=== PATIENT | male | born 1955 | race Caucasian/White ===

== ENCOUNTER 2018-09-10 14:45 | Observation (INO) ==
--- NOTE | 2018-09-10 15:00 | Emergency Department Note ---
Disposition Clinical Impression: Syncope, Chest pain, Weakness, Bigeminy Disposition: Admitted As Inpatient Condition: Good General Adult HPI - General Chief complaint: ED Chest Pain Stated complaint: Chest pain Time Seen by Provider: 09/10/18 14:57 - Related Data Home Medications Medication Instructions Recorded Confirmed Atorvastatin Calcium [Lipitor] 20 mg PO DAILY 09/10/18 09/10/18 Enalapril Maleate [Vasotec] 2.5 mg PO DAILY 09/10/18 09/10/18 Ferrous Sulfate [Iron] 325 mg PO DAILY 09/10/18 09/10/18 Levothyroxine [Synthroid] 25 mcg PO DAILY 09/10/18 09/10/18 Metoprolol Succinate [Toprol Xl] 100 mg PO DAILY 09/10/18 09/10/18 Multivitamin [One Daily Essential] 1 tab PO DAILY 09/10/18 09/10/18 Nitroglycerin [Nitrostat] 0.4 mg SL AD 09/10/18 09/10/18 Pantoprazole Sodium [Protonix] 40 mg PO DAILY 09/10/18 09/10/18 Potassium Chloride [Klor-Con 8 meq PO DAILY 09/10/18 09/10/18 Sprinkle] RX: Albuterol Sulfate [Albuterol 2 puff IH Q4H PRN 09/10/18 09/10/18 Inhaler] RX: Cyclobenzaprine HCl 10 mg PO TID 09/10/18 09/10/18 RX: Fluticasone/Salmeterol [Advair 1 puff IH BID 09/10/18 09/10/18 250-50 Diskus] RX: Furosemide [Lasix] 20 mg PO DAILY 09/10/18 09/10/18 RX: Morphine Sulfate SR (12 HR) 15 mg PO BID PRN 09/10/18 09/10/18 [MS Contin] RX: Paroxetine [Paxil] 20 mg PO DAILY 09/10/18 09/10/18 Tamsulosin [Flomax] 0.4 mg PO DAILY 09/10/18 09/10/18 Tramadol HCl [Ultram] 50 mg PO BID 09/10/18 09/10/18 clonazePAM [Clonazepam] 0.5 mg PO BID 09/10/18 09/10/18 Allergies Allergy/AdvReac Type Severity Reaction Status Date / Time rabbit dander Allergy Difficulty Verified 09/10/18 15:01 Breathing shellfish derived Allergy Swelling Verified 09/10/18 15:01 of Lip/Tongue/Throat Course Vital Signs Temperature 98.4 F 09/10/18 15:01 Pulse Rate 107 09/10/18 15:01 Respiratory Rate 20 09/10/18 15:01 Blood Pressure 126/83 09/10/18 15:01 O2 Sat by Pulse Oximetry 92 09/10/18 15:01 Temperature 98.4 F 09/10/18 15:01 Pulse Rate 79 09/10/18 19:31 Respiratory Rate 18 09/10/18 19:31 Blood Pressure 115/84 09/10/18 19:31 O2 Sat by Pulse Oximetry 96 09/10/18 19:31 Oxygen Delivery Oxygen Delivery Nasal Cannula Medical Decision Making - Lab Data Result diagrams: 09/10/18 15:13 09/10/18 15:13 Lab Results 09/10/18 09/10/18 09/10/18 Range/Units 15:13 15:13 15:13 WBC 11.0 (4.3-11.1) K/mcL RBC 5.25 (4.19-5.50) M/mcL Hgb 15.3 (12.9-16.9) g/dL Hct 47.4 (37.5-50.1) % MCV 90.3 (83.0-100.0) fL MCH 29.1 (28.0-33.3) pg MCHC 32.3 (31.6-35.5) g/dL RDW 12.4 (11.5-14.5) % Plt Count 328 (140-400) K/mcL MPV 9.3 L (9.4-12.4) fL Immature Gran % 1.4 (0-4) % Seg Neutrophils % 59.1 % Lymphocytes % 10.5 % Monocytes % 8.0 % Eosinophils % 20.5 % Basophils % 0.5 % Neutrophils # 6.5 (1.6-8.9) K/mcL Lymphocytes # 1.2 (0.6-4.6) K/mcL Monocytes # 0.9 (0.0-1.3) K/mcL Eosinophils # 2.3 H (0.0-0.6) K/mcL Basophils # 0.1 (0.0-0.2) K/mcL Platelet Estimate Normal (Normal) PT 12.7 H (9.4-12.1) Seconds INR 1.1 APTT 37.8 H (26.0-36.0) Seconds Sodium 142 (136-145) mEq/L Potassium 4.1 (3.5-5.1) mEq/L Chloride 103 (98-107) mEq/L Carbon Dioxide 31 H (23-29) mEq/L BUN 9 (8-23) mg/dL Creatinine 1.03 (0.70-1.30) mg/dL Est GFR ( Amer) > 60 (> 60) Est GFR (Non-Af Amer) > 60 (> 60) BUN/Creatinine Ratio 9 (6-26) Glucose 137 H (70-105) mg/dL Calculated Osmolality 295 (280-300) Calcium 8.7 (8.6-10.3) mg/dL Troponin I < 0.03 (< 0.04) ng/mL Attestation Statement - Attestation Attestation: I examined this patient and my medical decision-making was reviewed with the Resident Physician. I agree with the documented findings, disposition and treatment plan as described except to the extent set forth below. [id number] time provided Patient evaluated upon his arrival to the medical treatment room. He does not appear in any acute distress. ECG reveals bigeminy pattern.
[2018-09-10] MEDS ORDERED: Ipratropium/Albuterol Neb 3 ML IH ONE (15:22)
[2018-09-10 15:37] LABS: Basophils # 0.1 K/mcL (0.0-0.2); Basophils % 0.5 %; Eosinophils # 2.3 K/mcL (0.0-0.6); Eosinophils % 20.5 %; Hematocrit 47.4 % (37.5-50.1); Hemoglobin 15.3 g/dL (12.9-16.9); Immature Granulocytes % 1.4 % (0-4); Lymphocytes # 1.2 K/mcL (0.6-4.6); Lymphocytes % 10.5 %; Mean Corpuscular HGB Conc 32.3 g/dL (31.6-35.5); Mean Corpuscular Hemoglobin 29.1 pg (28.0-33.3); Mean Corpuscular Volume 90.3 fL (83.0-100.0); Mean Platelet Volume 9.3 fL (9.4-12.4); Monocytes # 0.9 K/mcL (0.0-1.3); Neutrophils # 6.5 K/mcL (1.6-8.9); Platelet Count 328 K/mcL (140-400); Red Blood Count 5.25 M/mcL (4.19-5.50); Red Cell Distribution Width 12.4 % (11.5-14.5); Segmented Neutrophils % 59.1 %
[2018-09-10] MEDS ORDERED: Isovue-370 500 ML INFUS..BTL IV ONE (15:38)
[2018-09-10 15:44] LABS: INR 1.1; Prothrombin Time 12.7 Seconds (9.4-12.1)
[2018-09-10 15:47] LABS: Activated Partial Thrombo Time 37.8 Seconds (26.0-36.0)
[2018-09-10 15:59] LABS: BUN/Creatinine Ratio 9 (6-26); Blood Urea Nitrogen 9 mg/dL (8-23); Calcium 8.7 mg/dL (8.6-10.3); Carbon Dioxide 31 mEq/L (23-29); Chloride 103 mEq/L (98-107); Glucose 137 mg/dL (70-105); Osmolality,Calculated 295 (280-300); Potassium 4.1 mEq/L (3.5-5.1); Sodium 142 mEq/L (136-145); eGFR For Non-African Americans > 60 (> 60)
[2018-09-10 16:00] LABS: Troponin I < 0.03 ng/mL (< 0.04)
--- NOTE | 2018-09-10 16:05 | Emergency Department Note ---
Disposition Clinical Impression: Weakness, Bigeminy Syncope Qualifiers: Syncope type: unspecified Qualified Code(s): R55 - Syncope and collapse Chest pain Qualifiers: Chest pain type: unspecified Qualified Code(s): R07.9 - Chest pain, unspecified Disposition: Admitted As Inpatient Condition: Good Referrals: NONE,PCP [Primary Care Provider] - Forms: ED Satisfaction Letter Time of Disposition: 18:20 Chest Pain HPI - General Chief Complaint: ED Chest Pain Stated Complaint: Chest pain Time Seen by Provider: 09/10/18 14:57 Source: patient, family Limitations: no limitations Vital Signs Reviewed: Yes Nursing Notes Reviewed: Yes - History of Present Illness HPI Narrative: 62-year-old male history of CAD, hypertension, hyperlipidemia COPD presents to the emergency department with chest pain. He has been having intermittent midsternal chest pain over the past week. Initially started 8 days ago while from [place] in [place] to [place]. On his way he stopped at [place] where he developed chest pain with pressure, difficulty breathing and lightheadedness. He was advised to stay in that town and rent [employer] [employer]. His daughter from [place] then drove down to pick him up. During those several days in the motel he reports his intermittent episodes of the chest pain and lightheadedness and almost passing out. 7 days ago he spoke to his family physician who advised him to stop taking the Toprol suspecting it could be due to his blood pressure. Chest pain does not appear to be exertional. He does noticed that when he gets up he feels dizzy and feeling of passing out and does not improve with time. They finally got into [place] yesterday. Yesterday he had an episode after standing from sitting position where he fell backwards striking his head stood back up and fell forward striking his face. He has an abrasion to his nose. This has never happened before. Patient denies history of blood clots, active cancer, hormone replacement. He has traveled by car from [place] to [place] to bury father in law. No history of any irregular heart rhythm. He has taken a baby aspirin today. Pt complaint: chest pain Severity scale (1-10): 7 - Related Data Home Medications Medication Instructions Recorded Confirmed Albuterol Sulfate [Albuterol 2 puff IH Q4H PRN 09/10/18 09/10/18 Inhaler] Atorvastatin Calcium [Lipitor] 20 mg PO DAILY 09/10/18 09/10/18 Cyclobenzaprine HCl 10 mg PO TID 09/10/18 09/10/18 Enalapril Maleate [Vasotec] 2.5 mg PO DAILY 09/10/18 09/10/18 Ferrous Sulfate [Iron] 325 mg PO DAILY 09/10/18 09/10/18 Fluticasone/Salmeterol [Advair 1 puff IH BID 09/10/18 09/10/18 250-50 Diskus] Furosemide [Lasix] 20 mg PO DAILY 09/10/18 09/10/18 Levothyroxine [Synthroid] 25 mcg PO DAILY 09/10/18 09/10/18 Metoprolol Succinate [Toprol Xl] 100 mg PO DAILY 09/10/18 09/10/18 Morphine Sulfate SR (12 HR) [MS 15 mg PO BID PRN 09/10/18 09/10/18 Contin] Multivitamin [One Daily Essential] 1 tab PO DAILY 09/10/18 09/10/18 Nitroglycerin [Nitrostat] 0.4 mg SL AD 09/10/18 09/10/18 Pantoprazole Sodium [Protonix] 40 mg PO DAILY 09/10/18 09/10/18 Paroxetine [Paxil] 20 mg PO DAILY 09/10/18 09/10/18 Potassium Chloride [Klor-Con 8 meq PO DAILY 09/10/18 09/10/18 Sprinkle] Tamsulosin [Flomax] 0.4 mg PO DAILY 09/10/18 09/10/18 Tramadol HCl [Ultram] 50 mg PO BID 09/10/18 09/10/18 clonazePAM [Clonazepam] 0.5 mg PO BID 09/10/18 09/10/18 Allergies Allergy/AdvReac Type Severity Reaction Status Date / Time rabbit dander Allergy Difficulty Verified 09/10/18 15:01 Breathing shellfish derived Allergy Swelling Verified 09/10/18 15:01 of Lip/Tongue/Throat All systems ED: reviewed and negative except as stated. Review of Systems: As Per HPI Constitutional: Denies: fever, chills, weakness ENT ED: Denies: epistaxis, congestion Cardiovascular: Reports: chest pain, syncope Respiratory: Reports: dyspnea. Denies: cough Gastrointestinal: Reports: constipation. Denies: abdominal pain, nausea, vomiting, hematemesis, melena, hematochezia Genitourinary: Denies: dysuria, hematuria Musculoskeletal: Reports: neck pain. Denies: back pain Integumentary: Reports: abrasion Neurological: Reports: headache. Denies: weakness, numbness, paresthesias, confusion Chest Pain PMH - Past Medical History Medical history: Reports: COPD, hyperlipidemia, hypertension, myocardial infarction Psychiatric history: Reports: no psych history - Social History Smoking Status: Never smoker Alcohol use: Reports: none Drug use: Reports: none Physical Exam - General Limitations: no limitations General appearance: alert, in no apparent distress - Head Head exam: atraumatic, normocephalic, normal inspection - Eye Eye exam: Present: normal appearance, PERRL, EOMI. Absent: nystagmus - ENT ENT exam: normal exam, normal oropharynx, mucous membranes moist, TM's normal bilaterally - Expanded ENT Exam External ear exam: Present: normal external inspection Nose exam: abrasion (Nasal bridge). negative: nasal deviation, septal hematoma Mouth exam: Present: normal external inspection, tongue normal Teeth exam: Present: normal inspection Throat exam: Present: normal inspection - Neck Neck exam: Present: normal inspection, full ROM, trachea midline. Absent: tenderness - Chest Chest inspection: Present: normal inspection, symmetric chest wall rise - Respiratory Respiratory exam: Present: normal lung sounds bilaterally. Absent: respiratory distress, wheezes - Cardiovascular Cardiovascular exam: Present: normal rhythm, tachycardia, normal heart sounds - Expanded Cardiovascular Exam Peripheral pulses: 2+: radial (R), radial (L) - Abdominal Exam Abdominal exam: Present: soft, Non-Tender, normal bowel sounds. Absent: tenderness, distention, guarding, rebound, rigidity - Extremities Exam Extremities exam: Present: normal inspection, full ROM, normal capillary refill. Absent: tenderness, pedal edema, calf tenderness - Neurological Exam Neurological exam: Present: alert, oriented X3, CN II-XII intact, normal gait - Expanded Neurological Exam Patient oriented to: Present: person, place, time Speech: Present: fluid speech Cranial nerves: EOM function (II, III, IV, ): Normal, facial sensation (V): Normal, facial palsy (VII): Normal, gag reflex (IX): Normal, spinal accessory function (XI): Normal, tongue deviation (XII): Normal Cerebellar function: finger to nose: Normal, heel to núñez: Normal Cerebellar function: normal gait Motor strength - LUE: 5/5 Motor strength - RUE: 5/5 Motor strength - LLE: 5/5 Motor strength - RLE: 5/5 Upper motor neuron exam: santi neglect: Absent bilaterally, pronator drift: Absent bilaterally Sensory exam upper extremity: light touch: Normal Sensory exam lower extremity: light touch: Normal Coma Scale Eye Opening: Spontaneous Coma Scale Motor Response: Obeys Commands Coma Scale Verbal Response: Oriented Coma Scale Total: 15 - Psychiatric Psychiatric exam: Present: normal affect, normal mood - Skin Skin exam: Present: warm, dry, intact, normal color. Absent: rash, cyanosis, diaphoresis Course Course Narrative: Patient presents with intermittent chest pain with multiple episodes of lightheadedness dizziness resulting in a recent fall. History of CAD. Currently chest pain free at this time. Patient was hypoxic 88% on arrival and tachycardic. He recently traveled from [place] to [place]. Will evaluate for possible ACS PE vs will perform chest pain workup including CTA of chest. Given the fallen head trauma on aspirin will also obtain CT head and cervical spine imaging. - Reevaluation(s) Reevaluation #1: Labs reviewed unremarkable. Troponin less than 0.03. Patient continues to be tachycardic but he had recently discontinued his 100 mg Toprol XL. His oxygen saturation has improved with 2L NC, he does not wear O2 at baseline. Patient reports reaction to contrast in the past but does not recall the reaction. He states he typically receives Benadryl and has no issues. At this time discussed with the patient on pretreatment of Benadryl and to pursue CTA chest. CT of the head and cervical spine without any intracranial abnormality or acute fractures. Time: 17:22 Reevaluation #2: CT scan did not reveal pulmonary embolism. No evidence of pneumonia. Patient continues to feel unwell. He reports some chest pressure in mid-sternum. Patient will be admitted for further evaluation of syncope, chest pain and bigeminy. Time: 18:43 - Consultations Consultation #1: Spoke with on-call hospitalist sha Breen to admit for chest pain, syncope, and bigeminy. No further orders at this time Time: 18:57 Vital Signs Temperature 98.4 F 09/10/18 15:01 Pulse Rate 107 09/10/18 15:01 Respiratory Rate 20 09/10/18 15:01 Blood Pressure 126/83 09/10/18 15:01 O2 Sat by Pulse Oximetry 92 09/10/18 15:01 Temperature 98.4 F 09/10/18 15:01 Pulse Rate 93 09/10/18 18:05 Respiratory Rate 20 09/10/18 18:05 Blood Pressure 116/88 09/10/18 18:05 O2 Sat by Pulse Oximetry 95 09/10/18 18:05 Oxygen Delivery Oxygen Delivery Nasal Cannula Chest Pain - MDM Narrative Medical decision making narrative: Patient was discussed with my attending physician who agrees with ED management and final disposition. They independently evaluated the patient. Please refer to their attestation to this encounter for additional information. This note was generated by [employer] voice recognition software and as a result grammatical or spelling errors may occur using this program. - Medical Records Medical records reviewed: Yes I reviewed the patient's medical records. - Lab Data Lab results reviewed: Yes I reviewed the patient's lab results. Result diagrams: 09/10/18 15:13 09/10/18 15:13 Lab Results 09/10/18 09/10/18 09/10/18 Range/Units 15:13 15:13 15:13 WBC 11.0 (4.3-11.1) K/mcL RBC 5.25 (4.19-5.50) M/mcL Hgb 15.3 (12.9-16.9) g/dL Hct 47.4 (37.5-50.1) % MCV 90.3 (83.0-100.0) fL MCH 29.1 (28.0-33.3) pg MCHC 32.3 (31.6-35.5) g/dL RDW 12.4 (11.5-14.5) % Plt Count 328 (140-400) K/mcL MPV 9.3 L (9.4-12.4) fL Immature Gran % 1.4 (0-4) % Seg Neutrophils % 59.1 % Lymphocytes % 10.5 % Monocytes % 8.0 % Eosinophils % 20.5 % Basophils % 0.5 % Neutrophils # 6.5 (1.6-8.9) K/mcL Lymphocytes # 1.2 (0.6-4.6) K/mcL Monocytes # 0.9 (0.0-1.3) K/mcL Eosinophils # 2.3 H (0.0-0.6) K/mcL Basophils # 0.1 (0.0-0.2) K/mcL Platelet Estimate Normal (Normal) PT 12.7 H (9.4-12.1) Seconds INR 1.1 APTT 37.8 H (26.0-36.0) Seconds Sodium 142 (136-145) mEq/L Potassium 4.1 (3.5-5.1) mEq/L Chloride 103 (98-107) mEq/L Carbon Dioxide 31 H (23-29) mEq/L BUN 9 (8-23) mg/dL Creatinine 1.03 (0.70-1.30) mg/dL Est GFR ( Amer) > 60 (> 60) Est GFR (Non-Af Amer) > 60 (> 60) BUN/Creatinine Ratio 9 (6-26) Glucose 137 H (70-105) mg/dL Calculated Osmolality 295 (280-300) Calcium 8.7 (8.6-10.3) mg/dL Troponin I < 0.03 (< 0.04) ng/mL - Radiology Data Radiology results reviewed: Yes I reviewed the patient's radiology results. Chest X-Ray 09/10/18 15:18 IMPRESSION: Cardiomegaly with mildly prominent pulmonary vasculature and small bilateral effusions. Elevated right hemidiaphragm. Appearance of bibasilar atelectasis. D/ / Zoey La MD / Zoey La MD Interpreting Provider: Zoey La MD Cervical Spine CT 09/10/18 15:19 IMPRESSION: CT HEAD: No evidence of acute intracranial abnormality. Atrophy and senescent changes as above. CT CERVICAL SPINE: Extensive degenerative and degenerative disc disease without acute fracture. Multilevel neural foraminal narrowing more significant on the right side. Canal stenosis C2-C3 through C4-C5. No acute fracture. D/ / 09/10/2018 16:22:59 Zoey La MD / [email or web address] Interpreting Provider: Zoey La MD Head CT 09/10/18 15:19 IMPRESSION: CT HEAD: No evidence of acute intracranial abnormality. Atrophy and senescent changes as above. CT CERVICAL SPINE: Extensive degenerative and degenerative disc disease without acute fracture. Multilevel neural foraminal narrowing more significant on the right side. Canal stenosis C2-C3 through C4-C5. No acute fracture. D/ / 09/10/2018 16:22:59 Zoey La MD / estevan Interpreting Provider: Zoey La MD Chest CTA 09/10/18 15:38 IMPRESSION: 1. No pulmonary embolus is identified 2. Expiratory phase of respiration somewhat limits sensitivity. Atelectatic changes in the lung bases are noted. No focal consolidation. D/ / Wilmer Hankins / Wilmer Hankins Interpreting Provider: Wilmer Hankins - EKG Data EKG attestation: Yes I reviewed and interpreted this EKG. EKG results narrative: EKG performed 1457 sinus tachycardia 126 minute, Bigeminy, no ST elevation, no ST depression, no old EKG available for comparison at this time. No acute ischemic changes. Heart Score - Score History: Moderately Suspicious EKG: Non Specific repolarisation Disturbance Age: 45-65 Risk Factors: Equal/Greater than 3 risk factor or history of atherosclerotic disease Troponin: Less than normal limit HEART Score Total: 5
[2018-09-10 16:09] LABS: Platelet Estimate Normal (Normal)
[2018-09-10] MEDS ORDERED: Metoprolol XL (24 HR) Succ 50 MG TAB.ER.24H PO ONE (16:29)
[2018-09-10] MEDS ORDERED: Aspirin 325 MG TABLET PO ONE (18:15)
[2018-09-10] MEDS: 0.9 % Sodium Chloride 1,000 ML IVC SCH (19:13)
[2018-09-10] MEDS: Nitroglycerin 0.4 MG TAB.SUBL SL PRN ×2 (19:15→19:23)
[2018-09-10] MEDS ORDERED: traMADol 50 MG TABLET PO PRN (20:16)
[2018-09-10] MEDS ORDERED: Ipratropium/Albuterol Neb 3 ML IH PRN (20:20)
--- NOTE | 2018-09-10 20:42 | Internal Med History&Physical ---
Date of Encounter: 09/10/18 Time of Encounter: 20:39 Internal Medicine - H&P: HPI Chief complaint: Chest pain Admitted From: Home Plans for Post Hospital Care: Home History of present illness: Ez Gale is a 62-year-old man with a history of hypertension, hyperlipidemia, COPD and coronary artery disease status post RI in May 2015 with no stents placed after PCI who presents with the complaint of intermittent midsternal chest pain for over the past week. He states that it started just over a week ago while he was in [place] describing it as a knot in his lower mid sternum and an elephant sitting on his chest causing pressure. He suffered a syncopal episode after experiencing this pain and standing up, falling down and hitting his face to the ground. He called 911 but then decided not to go to the hospital for attention. 3 days ago during his drive from [place] to [place] he had to stop in [place] because he continued to have the chest pain and was feeling dizzy and lightheaded describing seeing spots in his peripheral vision. He stayed in a hotel and his daughters came down from [place] to pick him up and bring him back here. The daughters state that at the time they saw him he was tachycardic and hypoxic. On arrival here he was saturating 88% and tachycardic. There was concern for pulmonary embolism and a CTA was done which was unremarkable. Given the fall and head trauma skull comprehensive radiologic imaging were obtained and were unremarkable for injury. His troponin was less than 0.03 and EKG showed bigeminy. He received loading dose of aspirin and one nebulizer therapy. He was also given 100 mg of metoprolol succinate because the patient states that he stopped taking them about a week ago. It appears he has had difficulty with some of his medications due to cost. He is now admitted for further observation. At this time he reports feeling well and states that he is currently chest pain-free. Past Med Surg Social Fam HX - Past Medical History Medical history: COPD, hyperlipidemia, hypertension, myocardial infarction Psychiatric history: no psych history - Past Surgical History Additional surgical history: Heart cath - Social History Smoking Status: Never smoker Smokeless Tobacco Status: No Alcohol use: none Drug use: none Internal Medicine - H&P: Meds Albuterol Sulfate [Albuterol Inhaler] 2 puff IH Q4H PRN 09/10/18 [History] Atorvastatin Calcium [Lipitor] 20 mg PO DAILY 09/10/18 [History] Cyclobenzaprine HCl 10 mg PO TID 09/10/18 [History] Enalapril Maleate [Vasotec] 2.5 mg PO DAILY 09/10/18 [History] Ferrous Sulfate [Iron] 325 mg PO DAILY 09/10/18 [History] Fluticasone/Salmeterol [Advair 250-50 Diskus] 1 puff IH BID 09/10/18 [History] Furosemide [Lasix] 20 mg PO DAILY 09/10/18 [History] Levothyroxine [Synthroid] 25 mcg PO DAILY 09/10/18 [History] Metoprolol Succinate [Toprol Xl] 100 mg PO DAILY 09/10/18 [History] Morphine Sulfate SR (12 HR) [MS Contin] 15 mg PO BID PRN 09/10/18 [History] Multivitamin [One Daily Essential] 1 tab PO DAILY 09/10/18 [History] Nitroglycerin [Nitrostat] 0.4 mg SL AD 09/10/18 [History] Pantoprazole Sodium [Protonix] 40 mg PO DAILY 09/10/18 [History] Paroxetine [Paxil] 20 mg PO DAILY 09/10/18 [History] Potassium Chloride [Klor-Con Sprinkle] 8 meq PO DAILY 09/10/18 [History] Tamsulosin [Flomax] 0.4 mg PO DAILY 09/10/18 [History] Tramadol HCl [Ultram] 50 mg PO BID 09/10/18 [History] clonazePAM [Clonazepam] 0.5 mg PO BID 09/10/18 [History] Allergy/AdvReac Type Severity Reaction Status Date / Time rabbit dander Allergy Difficulty Verified 09/10/18 15:01 Breathing shellfish derived Allergy Swelling Verified 09/10/18 15:01 of Lip/Tongue/Throat All Systems PM: A 10-system review of systems was performed and is negative for pertinent findings except as documented above in the HPI. Family history reviewed and remarkable for heart disease in father. - Constitutional Vitals: Temp Pulse Resp BP Pulse Ox 98.0 F 77 16 142/82 96 09/10/18 19:52 09/10/18 19:52 09/10/18 19:52 09/10/18 20:24 09/10/18 19:52 Exam: Vitals: Reviewed General: Well-developed and well-appearing in no acute distress. Skin: Warm and supple. HEENT: Moist mucous membranes. No conjunctivae pallor. Neck: No lymphadenopathy. No JVD. No carotid bruits. No palpable thyroid. Chest: Normal thoracic expansion. Normal breath sounds. Clear to auscultation. Heart: Normal S1 & S2; rhythmic. No rubs or murmurs. Abdomen: Distended, soft and non-tender to palpation. No peritoneal reaction. Extremities: Pedal microvarices evident. 1+ edema noted in feet with the right foot circumferentially larger than the left. Neurological: Awake, alert and oriented to person, place and time. No focal deficits. Psych: Affect appropriate. Internal Med - H&P Results - Labs CBC & Chem 7: 09/10/18 15:13 09/10/18 15:13 Labs: Short CBC 09/10/18 Range/Units 15:13 WBC 11.0 (4.3-11.1) K/mcL Hgb 15.3 (12.9-16.9) g/dL Hct 47.4 (37.5-50.1) % Plt Count 328 (140-400) K/mcL Neutrophils # 6.5 (1.6-8.9) K/mcL BMP 09/10/18 15:13 Sodium 142 Potassium 4.1 Chloride 103 Carbon Dioxide 31 H BUN 9 Creatinine 1.03 Glucose 137 H Calcium 8.7 Cardiac Enzymes 09/10/18 Range/Units 15:13 Troponin I < 0.03 (< 0.04) ng/mL - Impressions ITS Impressions Chest X-Ray 09/10/18 15:18 IMPRESSION: Cardiomegaly with mildly prominent pulmonary vasculature and small bilateral effusions. Elevated right hemidiaphragm. Appearance of bibasilar atelectasis. D/ / Zoey La MD / Zoey La MD Interpreting Provider: Zoey La MD Cervical Spine CT 09/10/18 15:19 IMPRESSION: CT HEAD: No evidence of acute intracranial abnormality. Atrophy and senescent changes as above. CT CERVICAL SPINE: Extensive degenerative and degenerative disc disease without acute fracture. Multilevel neural foraminal narrowing more significant on the right side. Canal stenosis C2-C3 through C4-C5. No acute fracture. D/ / 09/10/2018 16:22:59 Zoey La MD / estevan Interpreting Provider: Zoey La MD Head CT 09/10/18 15:19 IMPRESSION: CT HEAD: No evidence of acute intracranial abnormality. Atrophy and senescent changes as above. CT CERVICAL SPINE: Extensive degenerative and degenerative disc disease without acute fracture. Multilevel neural foraminal narrowing more significant on the right side. Canal stenosis C2-C3 through C4-C5. No acute fracture. D/ / 09/10/2018 16:22:59 Zoey La MD / estevan Interpreting Provider: Zoey La MD Chest CTA 09/10/18 15:38 IMPRESSION: 1. No pulmonary embolus is identified 2. Expiratory phase of respiration somewhat limits sensitivity. Atelectatic changes in the lung bases are noted. No focal consolidation. D/ / Wilmer Hankins / Wilmer Hankins Interpreting Provider: Wilmer Hankins - Assessment and plan (1) Chest pain Current Visit: Yes Status: Acute Assessment and plan: The patient's description of his chest pain is concerning especially given his comorbidities and prior RI history. His daughter does relate that he underwent PCI about one year ago and was clear which is reassuring. All the same he will benefit from ongoing monitoring overnight, obtaining an echocardiogram and even a nuclear stress test to ensure that he is symptoms are not secondary to isch emic cardiac disease. Qualifiers: Chest pain type: unspecified Qualified Code(s): R07.9 - Chest pain, unspecified (2) Syncope Current Visit: Yes Status: Acute Assessment and plan: He reports a relation to standing up therefore will obtain orthostatic vitals as this could be contributory. It has not recurred since the episode over a week ago. Will check a carotid doppler as well. Fall precautions ordered. 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 on duonebs prn and continue LABA/ICS daily. He is currently requiring supplemental oxygen. As per family, this is not a new finding and previous attempts for home oxygen have been made but never made it to fruition. The patient should be evaluated for home oxygen use before his discharge and arrangements made accordingly. Qualifiers: COPD type: emphysema Emphysema type: unspecified Qualified Code(s): J43.9 - Emphysema, unspecified (4) HTN (hypertension) Current Visit: Yes Status: Acute Assessment and plan: Well controlled. Will continue oral antihypertensives. Qualifiers: Hypertension type: essential hypertension Qualified Code(s): I10 - Essential (primary) hypertension (5) DVT prophylaxis Current Visit: Yes Status: Acute Assessment and plan: SubQ heparin ordered. Will rule out DVT in right leg via doppler given the swelling and color changes noted. - Time Spent With Patient Total time spent is greater than 50% in coordination of care (as documented) at patient's floor/unit and/or counseling patient: Greater than 35 minutes
[2018-09-10] MEDS: clonazePAM 0.5 MG TABLET PO SCH (21:29)
[2018-09-10] MEDS: *HR* Heparin 5,000 UNIT/ML VIAL SQ SCH (21:30)
[2018-09-10] MEDS: Budesonide/Formoterol 80/4.5 MDI IH SCH (22:03)
[2018-09-10] MEDS: *HR* Morphine Sulfate SR (12 HR) 15 MG TABLET.ER PO SCH (23:44)
[2018-09-11] MEDS: 0.9 % Sodium Chloride 1,000 ML IVC SCH (05:31)
[2018-09-11] MEDS: *HR* Heparin 5,000 UNIT/ML VIAL SQ SCH (05:32)
[2018-09-11 05:37] LABS: Basophils # 0.1 K/mcL (0.0-0.2); Basophils % 0.5 %; Eosinophils # 2.6 K/mcL (0.0-0.6); Eosinophils % 22.7 %; Hematocrit 41.8 % (37.5-50.1); Immature Granulocytes % 1.2 % (0-4); Lymphocytes % 17.2 %; Mean Corpuscular HGB Conc 31.8 g/dL (31.6-35.5); Mean Corpuscular Volume 91.3 fL (83.0-100.0); Mean Platelet Volume 10.2 fL (9.4-12.4); Monocytes % 8.5 %; Neutrophils # 5.8 K/mcL (1.6-8.9); Platelet Count 233 K/mcL (140-400); Red Blood Count 4.58 M/mcL (4.19-5.50); Red Cell Distribution Width 12.5 % (11.5-14.5); Segmented Neutrophils % 49.9 %
[2018-09-11] MEDS ORDERED: Regadenoson 0.4 MG/5 ML SYRINGE IVP ONE (05:41)
[2018-09-11 05:56] LABS: Hemoglobin 13.3 g/dL (12.9-16.9)
[2018-09-11 06:03] LABS: BUN/Creatinine Ratio 11 (6-26); Blood Urea Nitrogen 11 mg/dL (8-23); Calcium 8.2 mg/dL (8.6-10.3); Carbon Dioxide 32 mEq/L (23-29); Chloride 102 mEq/L (98-107); Glucose 91 mg/dL (70-105); Osmolality,Calculated 285 (280-300); Potassium 3.6 mEq/L (3.5-5.1); Sodium 138 mEq/L (136-145); eGFR For Non-African Americans > 60 (> 60)
[2018-09-11 06:04] LABS: Albumin 2.8 g/dL (3.5-5.7); Albumin/Globulin Ratio 1.1 (1.1-2.2); Bilirubin,Direct 0.1 mg/dL (0.0-0.2); Bilirubin,Indirect 0.4 mg/dL (0.0-1.2); Bilirubin,Total 0.5 mg/dL (0.3-1.0); Globulin 2.5 g/dL (2.4-3.5); Total Protein 5.3 g/dL (6.4-8.9)
[2018-09-11 06:13] LABS: Thyroid Stimulating Hormone 1.735 mcIU/mL (0.340-5.600)
[2018-09-11 06:18] LABS: Chol/HDL Ratio 4.4 (0-4.9)
[2018-09-11 06:20] LABS: Platelet Estimate Normal (Normal)
[2018-09-11] MEDS ORDERED: Levothyroxine 25 MCG TABLET PO SCH (06:30)
[2018-09-11] MEDS ORDERED: Multivit/Ca/Min/Fe/FA 1 TAB TABLET PO SCH (09:00)
[2018-09-11] MEDS ORDERED: Furosemide 20 MG TABLET PO SCH (09:00)
[2018-09-11] MEDS ORDERED: Metoprolol XL (24 HR) Succ 50 MG TAB.ER.24H PO SCH (09:00)
[2018-09-11 09:30] LABS: Estimated Average Glucose 120 mg/dl; Hemoglobin A1C 5.8 %
[2018-09-11] MEDS: clonazePAM 0.5 MG TABLET PO SCH (10:24)
[2018-09-11] MEDS: *HR* Morphine Sulfate SR (12 HR) 15 MG TABLET.ER PO SCH (10:25)
[2018-09-11] MEDS: Budesonide/Formoterol 80/4.5 MDI IH SCH (10:27)
[2018-09-11 12:38] VITALS: BP 128/76
--- NOTE | 2018-09-11 12:48 | Discharge Summary ---
<Jonny Molina P - Last Filed: 09/11/18 14:30> - NOTES TO OUTPATIENT PROVIDER Notes to Outpatient Provider: *He will follow-up with his primary care doctor within a week. *We have added aspirin 81 MG daily. Orders not resulted at time of discharge: Pending orders 09/10/18 05:55 NM charla perf SPECT multi [NM] Routine Date of Encounter: 09/11/18 Time of Encounter: 12:05 - Discharge Diagnosis (1) Chest pain Priority: Primary Status: Acute Assessment and Plan: The patient has severe chest pain and multiple risk factor for cardiac origin of pain , hypertension, hyperlipidemia, CAD with post MO The workup for cardiac origin of pain was negative: Echocardiography findings: LVEF 55%.Normal LV chamber size, wall thickness and function. Atypical septal motion of unclear etiology. Mild left ventricular diastolic dysfunction. Nuclear stress test was negative for ischemia, serial troponin test was less than 0.03. CTA chest was negative for pulmonary embolism. Qualifiers: Chest pain type: unspecified Qualified Code(s): R07.9 - Chest pain, unspecified (2) COPD (chronic obstructive pulmonary disease) Priority: Secondary Status: Chronic Assessment and Plan: The patient is chronic patient of COPD and is taking bronchodilators LABA/ICS at home He has mild shortness of breath and cough , but the symptoms are not getting worse. The patient is on oxygen , we have advised to use oxygen at nighttime, he will continue his medication at home Has been qualified for home oxygen therapy and he will use oxygen at home especially at nighttime Qualifiers: COPD type: emphysema Emphysema type: unspecified Qualified Code(s): J43.9 - Emphysema, unspecified (3) Syncope Priority: Primary Status: Acute Assessment and Plan: The patient has history of dizziness/syncope while standing up from prolonged sitting position. We have assessed postural drop of blood pressure : Blood pressure on left arm while Sitting 128/76 While Standing 115/70 He had history of syncopal 1 week back and he does not have any dizziness or syncope now. Qualifiers: Syncope type: unspecified Qualified Code(s): R55 - Syncope and collapse Hospital course: Mr. Gale is a 62 year old male with past medical history of hypertension, hyperlipidemia, COPD, CAD post MO admitted from emergency for severe midsternal chest pain for over a week. The pain was midsternal, pressure-like ,8-9/10 in intensity. He further stated that he has had severe chest pain and he fell down and hit his head. The patient was admitted inpatient unit for cardiac monitoring and chest pain workup. Serial troponin was less than 0.03, CTA chest was unremarkable for PE, echocardiogram showed LVEF 55%.Normal LV chamber size, wall thickness and function,mild left ventricular diastolic dysfunction.Pharmacologic stress ECG is negative for ischemia.. CXR showed : Cardiomegaly with mildly prominent pulmonary vasculature and appearance of bibasilar atelectasis . CT C-Spine showed :Extensive degenerative and degenerative disc disease without acute fracture. Multilevel neural foraminal narrowing moresignificant on the right side. Canal stenosis C2-C3 through C4- C5. No acute fracture. Head CT scan did not show any acute pathology. We admitted him in inpatient unit, monitored is cardiac status and workup for card iology wheezing of pain was negative and no postural drop observed .During my visit today patient is hemodynamically stable, no new complaints, his chest pain has been improved 10/05 . His vitals temperature 97.8, blood pressure 131/81, saturation 95%. He has been symptomatically improved and we are planning to send him home. He has been qualified for home oxygen therapy and he will use oxygen at home especially at nighttime. He will follow-up with his primary care doctor within a week. - Time Spent with Patient Total time spent providing and/or coordinating discharge services: - Discharge Medications Prescriptions: Aspirin [Lo-Dose Aspirin EC] 81 mg PO ONCE 30 Days #30 tablet. Home Medications: Albuterol Sulfate [Albuterol Inhaler] 2 puff IH Q4H PRN 09/10/18 [History] Atorvastatin Calcium [Lipitor] 20 mg PO DAILY 09/10/18 [History] Cyclobenzaprine HCl 10 mg PO TID 09/10/18 [History] Enalapril Maleate [Vasotec] 2.5 mg PO DAILY 09/10/18 [History] Ferrous Sulfate [Iron] 325 mg PO DAILY 09/10/18 [History] Fluticasone/Salmeterol [Advair 250-50 Diskus] 1 puff IH BID 09/10/18 [History] Furosemide [Lasix] 20 mg PO DAILY 09/10/18 [History] Levothyroxine [Synthroid] 25 mcg PO DAILY 09/10/18 [History] Metoprolol Succinate [Toprol Xl] 100 mg PO DAILY 09/10/18 [History] Morphine Sulfate SR (12 HR) [MS Contin] 15 mg PO BID PRN 09/10/18 [History] Multivitamin [One Daily Essential] 1 tab PO DAILY 09/10/18 [History] Nitroglycerin [Nitrostat] 0.4 mg SL AD 09/10/18 [History] Pantoprazole Sodium [Protonix] 40 mg PO DAILY 09/10/18 [History] Paroxetine [Paxil] 20 mg PO DAILY 09/10/18 [History] Potassium Chloride [Klor-Con Sprinkle] 8 meq PO DAILY 09/10/18 [History] Tamsulosin [Flomax] 0.4 mg PO DAILY 09/10/18 [History] Tramadol HCl [Ultram] 50 mg PO BID 09/10/18 [History] clonazePAM [Clonazepam] 0.5 mg PO BID 09/10/18 [History] Aspirin [Lo-Dose Aspirin EC] 81 mg PO ONCE 30 Days #30 tablet. 09/11/18 [Rx] Allergies/Adverse Reactions: Allergy/AdvReac Type Severity Reaction Status Date / Time rabbit dander Allergy Difficulty Verified 09/10/18 15:01 Breathing shellfish derived Allergy Swelling Verified 09/10/18 15:01 of Lip/Tongue/Throat Date of admission: 09/10/18 19:08 Primary care physician: PCP NONE - Constitutional Vitals: Temp Pulse Resp BP Pulse Ox 97.8 F 81 18 164/111 95 09/11/18 11:38 09/11/18 11:38 09/11/18 11:38 09/11/18 11:38 09/11/18 11:38 General appearance: Present: A&O X 3, no acute distress, answers questions appropriately Exam: Vitals: Reviewed General: Well-developed and well-appearing in no acute distress. Skin: Warm and supple. HEENT: Moist mucous membranes. No conjunctivae pallor. Neck: No lymphadenopathy. No JVD. No carotid bruits. No palpable thyroid. Chest: Normal thoracic expansion. Normal breath sounds. Clear to auscultation. Heart: Normal S1 & S2; rhythmic. No rubs or murmurs. Abdomen: Distended, soft and non-tender to palpation. No peritoneal reaction. Extremities: Pedal microvarices evident. 1+ edema noted in feet with the right foot circumferentially larger than the left. Neurological: Awake, alert and oriented to person, place and time. No focal deficits. Psych: Affect appropriate. - Patient Status Disposition: Home, Self-Care Condition: Good Overall status at discharge: patient is progressing back to baseline - Discharge Instructions Follow Up With: Shaye Bradford [Resident] - 09/14/18 9:00 am (Please arrive 30 minutes early to appointment. Please bring your ID cards, insurance information, and all active medications in the bottles. Please give 24 hours notice if appointment needs changed or rescheduled. Office located at [address] [place] [address] [address] Large streator building across from [facility] in [place]. Phone number; [phone].) Marquise Pete, [Partnered Physician] - (Your appointment has been requested. Our offices will call with an appointment time and date.) Additional Instructions: Call [employer] when you get to your sister's house to have all oxygen equipment delivered. #[phone]. Also, call [employer] when you are ready to go back to [place] for them to transfer account to [place] location. - Diet and Activity Activity: increase activity as tolerated, wear oxygen at night Diet: low fat, low cholesterol, low salt diet <Ismael Carrero - Last Filed: 09/11/18 16:01> Orders not resulted at time of discharge: Pending orders 09/10/18 05:55 NM charla perf SPECT multi [NM] Routine Date of Encounter: 09/11/18 - Discharge Diagnosis (1) Syncope Status: Acute Qualifiers: Syncope type: unspecified Qualified Code(s): R55 - Syncope and collapse (2) Chest pain Status: Acute Qualifiers: Chest pain type: unspecified Qualified Code(s): R07.9 - Chest pain, unspecified (3) COPD (chronic obstructive pulmonary disease) Status: Chronic Qualifiers: COPD type: emphysema Emphysema type: unspecified Qualified Code(s): J43.9 - Emphysema, unspecified (4) HTN (hypertension) Status: Acute Qualifiers: Hypertension type: essential hypertension Qualified Code(s): I10 - Essential (primary) hypertension (5) DVT prophylaxis Status: Acute Hospital course: Mr. Gale is a 62 year old male - Time Spent with Patient Total time spent providing and/or coordinating discharge services: Date of admission: 09/10/18 19:08 Primary care physician: PCP NONE - Constitutional Vitals: Temp Pulse Resp BP Pulse Ox 97.8 F 81 18 128/76 96 09/11/18 11:38 09/11/18 11:38 09/11/18 11:38 09/11/18 12:36 09/11/18 14:15 - Attending Attestation I examined this patient and my medical decision-making was reviewed with the Resident Physician Dr. Molina. I agree with the documented findings, disposition and treatment plan as described except to the extent set forth below. Mr. Gale is a 62-year-old gentlemen with known past medical history of hypertension, diastolic CHF, Hypothyroidism , COPD and anxiety patient admitted here for chest pain . He was placed on cardiac cath lab manager and checked serial troponin which were negative. He did go for nuclear stress test which came back is negative for any ischemia/infarction. His stress report showed medium- sized, moderate intensity fixed inferior and inferior septal segmental within normal appearing wall motion. These findings are consistent with artifact. Patient also seems to be having hypoxia with ambulaiton. He did have ambulating pulse ox which showed he required 2 lit oxygen with ambulation. Talked to patient's family at bedside and explained to them about current care. Will discharge him home in a stable condition today
--- NOTE | 2018-09-11 15:29 | Electrocardiograph Report ---
[address] [address] Test Date: 2018-09-10 Pat Name: Ez Gale Department: EXAM7 Room: 3B34 Gender: M [employer] Operator: : [id number] Requested By: Petr Dunlap Order Number: [id number] Reading MD: Marquise Pete Measurements Intervals [place] Rate: 126 P: 41 ID: [id number] QRS: -5 QRSD: 110 T: 90 QT: 343 QTc: 425 Interpretive Statements Sinus tachycardia Ventricular bigeminy Electronically Signed On 09-11-2018 15:27:33 EST by Marquise Pete
== END 2018-09-11 16:30 | disposition home or self-care (01) ==
LOC: EMEROOARM 14:45 → 3BNU 14:45 → SUATTDRO 19:08 → 3BNU 19:43
PROVIDERS: ADMIT Internal Medicine; ATTEND Family Medicine

== ENCOUNTER 2019-06-15 11:10 | Inpatient (IN) ==
[2019-06-15] MEDS ORDERED: 0.9 % Sodium Chloride 1,000 ML IVC ONE ×2 (11:21→13:14)
[2019-06-15] MEDS ORDERED: 0.9 % Sodium Chloride 1,000 ML ONE ×2 (11:34→12:58)
[2019-06-15] MEDS ORDERED: Pantoprazole 80 MG in 0.9 % Sodium Chloride 50 ML IVPB ONE (11:35)
--- NOTE | 2019-06-15 11:40 | Emergency Department Note ---
Disposition Clinical Impression: GI bleed Qualifiers: GI bleed type/associated pathology: melena Qualified Code(s): K92.1 - Melena Disposition: Admitted As Inpatient Condition: Fair Time of Disposition: 17:13 General Adult HPI - General Chief complaint: ED GI Bleed Stated complaint: possible GI bleed Time Seen by Provider: 06/15/19 11:18 Source: patient, family Nursing Notes Reviewed: Yes Vital Signs Reviewed: Yes - History of Present Illness Pain Scale: 7 - Related Data Home Medications Medication Instructions Recorded Confirmed Albuterol Sulfate [Proventil 1 puff IH Q6H PRN 09/10/18 06/15/19 Inhaler] Atorvastatin Calcium [Lipitor] 20 mg PO DAILY 09/10/18 06/15/19 Cyclobenzaprine HCl 10 mg PO TID PRN 09/10/18 06/15/19 Levothyroxine [Synthroid] 25 mcg PO QAM 09/10/18 06/15/19 Nitroglycerin [Nitrostat] 0.4 mg SL Q5MIN PRN 09/10/18 06/15/19 Pantoprazole Sodium [Protonix] 40 mg PO DAILY 09/10/18 06/15/19 Paroxetine [Paxil] 20 mg PO DAILY 09/10/18 06/15/19 Aspirin [Lo-Dose Aspirin EC] 81 mg PO DAILY 06/15/19 06/15/19 Budesonide/Formoterol 160/4.5 1 puff IH BIDR 06/15/19 06/15/19 [Symbicort 160/4.5] Metoprolol Tartrate 50 mg PO BID 06/15/19 06/15/19 Oxycodone HCl 5 mg PO Q6H PRN 06/15/19 06/15/19 traZODone [TraZODone] 50 mg PO HS 06/15/19 06/15/19 Allergies Allergy/AdvReac Type Severity Reaction Status Date / Time rabbit dander Allergy Difficulty Verified 06/15/19 11:26 Breathing shellfish derived Allergy Swelling Verified 06/15/19 11:26 of Lip/Tongue/Throat Past Medical History - Past Medical History Medical history: Reports: COPD, hyperlipidemia, hypertension, myocardial inf arction Psychiatric history: Reports: no psych history - Social History Smoking Status: Never smoker Smokeless Tobacco Status: No Alcohol use: Reports: none Drug use: Reports: none Physical Exam - General General appearance: alert, in no apparent distress Course Vital Signs Temperature 97.8 F 06/15/19 11:10 Pulse Rate 132 06/15/19 11:10 Respiratory Rate 20 06/15/19 11:10 Blood Pressure 87/66 06/15/19 11:10 O2 Sat by Pulse Oximetry 96 06/15/19 11:10 Temperature 97.5 F L 06/15/19 15:55 Pulse Rate 114 06/15/19 15:55 Respiratory Rate 18 06/15/19 15:55 Blood Pressure 129/21 06/15/19 15:55 O2 Sat by Pulse Oximetry 97 06/15/19 15:55 Oxygen Delivery Oxygen Delivery Nasal Cannula Medical Decision Making - MDM Narrative Medical decision making narrative: 1157 hrs.: Patient's hemoglobin is 7.2. I do not have an old hemoglobin on him here. We have paged GI since he does have a bleed. - Lab Data Result diagrams: 06/15/19 11:31 06/15/19 11:31 Lab Results 06/15/19 06/15/19 06/15/19 Range/Units 11:31 11:31 11:31 WBC 15.2 H (4.3-11.1) K/mcL RBC 2.58 L (4.19-5.50) M/mcL Hgb 7.8 L (12.9-16.9) g/dL Hct 25.4 L (37.5-50.1) % MCV 98.4 (83.0-100.0) fL MCH 30.2 (28.0-33.3) pg MCHC 30.7 L (31.6-35.5) g/dL RDW 16.0 H (11.5-14.5) % Plt Count 350 (140-400) K/mcL MPV 10.4 (9.4-12.4) fL Immature Gran % 2.0 (0-4) % Seg Neutrophils % 74.5 % Lymphocytes % 14.1 % Monocytes % 8.7 % Eosinophils % 0.3 % Basophils % 0.4 % Neutrophils # 11.3 H (1.6-8.9) K/mcL Lymphocytes # 2.1 (0.6-4.6) K/mcL Monocytes # 1.3 (0.0-1.3) K/mcL Eosinophils # 0.1 (0.0-0.6) K/mcL Basophils # 0.1 (0.0-0.2) K/mcL Nucleated RBCs/100 WBC 0.2 H (0) /100 WBC PT 14.3 H (9.4-12.1) Seconds INR 1.3 APTT 22.7 L (26.0-36.0) Seconds VBG pH (7.32-7.42) pH Units VBG pCO2 (41-51) mmHg VBG pO2 (25-50) mmHg VBG HCO3 (21-27) mEq/L Sodium 138 (136-145) mEq/L Potassium 4.5 (3.5-5.1) mEq/L Chloride 99 (98-107) mEq/L Carbon Dioxide 26 (23-29) mEq/L BUN 33 H (8-23) mg/dL Creatinine 1.07 (0.70-1.30) mg/dL Est GFR ( Amer) > 60 (> 60) Est GFR (Non-Af Amer) > 60 (> 60) BUN/Creatinine Ratio 31 H (6-26) Glucose 233 H (70-105) mg/dL Est Mean Plasma Glucose mg/dl Hemoglobin A1c ( - 5.6) % Calculated Osmolality 301 H (280-300) Lactic Acid (0.5-2.2) mmol/L Calcium 8.0 L (8.6-10.3) mg/dL Total Bilirubin 0.4 (0.3-1.0) mg/dL AST 20 (13-39) Units/L ALT 44 (7-52) Units/L Alkaline Phosphatase 162 H (34-104) Units/L Troponin I (< 0.04) ng/mL Serum Total Protein 5.3 L (6.4-8.9) g/dL Albumin 2.8 L (3.5-5.7) g/dL Globulin 2.5 (2.4-3.5) g/dL Albumin/Globulin Ratio 1.1 (1.1-2.2) Lipase (11-82) Units/L TSH 2.420 (0.340-5.600) mcIU/mL Ethyl Alcohol (Less than 10) mg/dL Blood Type Antibody Screen Crossmatch 06/15/19 06/15/19 06/15/19 Range/Units 11:31 11:31 11:31 WBC (4.3-11.1) K/mcL RBC (4.19-5.50) M/mcL Hgb (12.9-16.9) g/dL Hct (37.5-50.1) % MCV (83.0-100.0) fL MCH (28.0-33.3) pg MCHC (31.6-35.5) g/dL RDW (11.5-14.5) % Plt Count (140-400) K/mcL MPV (9.4-12.4) fL Immature Gran % (0-4) % Seg Neutrophils % % Lymphocytes % % Monocytes % % Eosinophils % % Basophils % % Neutrophils # (1.6-8.9) K/mcL Lymphocytes # (0.6-4.6) K/mcL Monocytes # (0.0-1.3) K/mcL Eosinophils # (0.0-0.6) K/mcL Basophils # (0.0-0.2) K/mcL Nucleated RBCs/100 WBC (0) /100 WBC PT (9.4-12.1) Seconds INR APTT (26.0-36.0) Seconds VBG pH (7.32-7.42) pH Units VBG pCO2 (41-51) mmHg VBG pO2 (25-50) mmHg VBG HCO3 (21-27) mEq/L Sodium (136-145) mEq/L Potassium (3.5-5.1) mEq/L Chloride (98-107) mEq/L Carbon Dioxide (23-29) mEq/L BUN (8-23) mg/dL Creatinine (0.70-1.30) mg/dL Est GFR ( Amer) (> 60) Est GFR (Non-Af Amer) (> 60) BUN/Creatinine Ratio (6-26) Glucose (70-105) mg/dL Est Mean Plasma Glucose mg/dl Hemoglobin A1c ( - 5.6) % Calculated Osmolality (280-300) Lactic Acid 5.8 H* (0.5-2.2) mmol/L Calcium (8.6-10.3) mg/dL Total Bilirubin (0.3-1.0) mg/dL AST (13-39) Units/L ALT (7-52) Units/L Alkaline Phosphatase (34-104) Units/L Troponin I 0.03 (< 0.04) ng/mL Serum Total Protein (6.4-8.9) g/dL Albumin (3.5-5.7) g/dL Globulin (2.4-3.5) g/dL Albumin/Globulin Ratio (1.1-2.2) Lipase 25 (11-82) Units/L TSH (0.340-5.600) mcIU/mL Ethyl Alcohol < 10 (Less than 10) mg/dL Blood Type O POSITIVE Antibody Screen NEGATIVE Crossmatch See Detail 06/15/19 06/15/19 Range/Units 11:31 11:48 WBC (4.3-11.1) K/mcL RBC (4.19-5.50) M/mcL Hgb (12.9-16.9) g/dL Hct (37.5-50.1) % MCV (83.0-100.0) fL MCH (28.0-33.3) pg MCHC (31.6-35.5) g/dL RDW (11.5-14.5) % Plt Count (140-400) K/mcL MPV (9.4-12.4) fL Immature Gran % (0-4) % Seg Neutrophils % % Lymphocytes % % Monocytes % % Eosinophils % % Basophils % % Neutrophils # (1.6-8.9) K/mcL Lymphocytes # (0.6-4.6) K/mcL Monocytes # (0.0-1.3) K/mcL Eosinophils # (0.0-0.6) K/mcL Basophils # (0.0-0.2) K/mcL Nucleated RBCs/100 WBC (0) /100 WBC PT (9.4-12.1) Seconds INR APTT (26.0-36.0) Seconds VBG pH 7.35 (7.32-7.42) pH Units VBG pCO2 45 (41-51) mmHg VBG pO2 40 (25-50) mmHg VBG HCO3 25 (21-27) mEq/L Sodium (136-145) mEq/L Potassium (3.5-5.1) mEq/L Chloride (98-107) mEq/L Carbon Dioxide (23-29) mEq/L BUN (8-23) mg/dL Creatinine (0.70-1.30) mg/dL Est GFR ( Amer) (> 60) Est GFR (Non-Af Amer) (> 60) BUN/Creatinine Ratio (6-26) Glucose (70-105) mg/dL Est Mean Plasma Glucose 114 mg/dl Hemoglobin A1c 5.6 ( - 5.6) % Calculated Osmolality (280-300) Lactic Acid (0.5-2.2) mmol/L Calcium (8.6-10.3) mg/dL Total Bilirubin (0.3-1.0) mg/dL AST (13-39) Units/L ALT (7-52) Units/L Alkaline Phosphatase (34-104) Units/L Troponin I (< 0.04) ng/mL Serum Total Protein (6.4-8.9) g/dL Albumin (3.5-5.7) g/dL Globulin (2.4-3.5) g/dL Albumin/Globulin Ratio (1.1-2.2) Lipase (11-82) Units/L TSH (0.340-5.600) mcIU/mL Ethyl Alcohol (Less than 10) mg/dL Blood Type Antibody Screen Crossmatch Attestation Statement - Attestation Attestation: This documentation is done with the assistance of Dragon dictation. Despite efforts made to ensure accuracy, there may be inaccuracies in documentation billing clerk or spelling and typographical errors. I examined this patient and my medical decision-making was reviewed with the Resident Physician. I agree with the documented findings, disposition and tr eatment plan as described except to the extent set forth below. Patient was seen and evaluated by Dr. Barrett, I agree with their evaluation and management plan, I supervised care the patient's stay. Patient presents today with daughter due to possible GI bleed. Patient had a long history was in [place]. Had cardiac arrest. Was intubated and neck beta twice. Had septic endocarditis. Has been getting IV antibiotics. Daughter moved him back up to here in the past week. Over last 48 hours she has developed a GI bleed from the rectum and also vomiting. Denies abdominal pain. He does have pain in his ribs because when they use in the hospital before he had of CPR and they did break some of his ribs. He is currently on heparin also to prevent DVTs. It is getting IV antibiotics this time. His initial blood pressure was hypotensive at triage but is now in the 110s. He is very pale. Were any drugs and do a lab workup on him given fluids he will need blood and then admission to whether that is here or transfer to a higher level of care. He and daughter in agreement this plan. I reviewed the residents documentation and agree with the residents assessment and plan of care. I have personally had face to face time with the patient. (Brief History, Brief Exam, and MDM) I personally supervised and was present for the castro/critical portions of the following procedures completed by the resident: EKG was interpreted by the resident under my supervision, I agree with their interpretation.
[2019-06-15 11:48] LABS: Basophils # 0.1 K/mcL (0.0-0.2); Basophils % 0.4 %; Eosinophils # 0.1 K/mcL (0.0-0.6); Eosinophils % 0.3 %; Hematocrit 25.4 % (37.5-50.1); Hemoglobin 7.8 g/dL (12.9-16.9); Lymphocytes # 2.1 K/mcL (0.6-4.6); Lymphocytes % 14.1 %; Mean Corpuscular HGB Conc 30.7 g/dL (31.6-35.5); Mean Corpuscular Hemoglobin 30.2 pg (28.0-33.3); Mean Corpuscular Volume 98.4 fL (83.0-100.0); Mean Platelet Volume 10.4 fL (9.4-12.4); Monocytes # 1.3 K/mcL (0.0-1.3); Monocytes % 8.7 %; Neutrophils # 11.3 K/mcL (1.6-8.9); Nucleated Red Blood Cells 0.2 /100 WBC (0); Platelet Count 350 K/mcL (140-400); Red Blood Count 2.58 M/mcL (4.19-5.50); Segmented Neutrophils % 74.5 %; White Blood Count 15.2 K/mcL (4.3-11.1)
--- NOTE | 2019-06-15 11:48 | Emergency Department Note ---
Disposition Clinical Impression: GI bleed Qualifiers: GI bleed type/associated pathology: melena Qualified Code(s): K92.1 - Melena Disposition: Admitted As Inpatient Condition: Fair Referrals: Shaye Bradford [Primary Care Provider] - Forms: ED Satisfaction Letter Time of Disposition: 13:19 General Adult HPI - General Chief complaint: ED GI Bleed Stated complaint: possible GI bleed Time Seen by Provider: 06/15/19 11:18 Source: patient, family Mode of arrival: other Limitations: no limitations Nursing Notes Reviewed: Yes Vital Signs Reviewed: Yes - History of Present Illness HPI Narrative: 63M that was in a [place] hospital one month ago for sepsis followed by an apparent cardiac event for which he received CPR/Resuscitation and required intubation at least twice according to family at bedside. He had a G-tube placed on of last week due to multiple events of aspiration with any oral intake, and was discharged from the [place] facility on Tuesday. He then traveled 1,500 miles back to [place] via automobile. His daughter called Dr. Shaye Bradford this morning because he has had dark and tarry stools since G-tube placement last and is feeling weak, lightheaded, and washed out. His doctor recommended that he be evaluated here. Pain Scale: 7 - Related Data Home Medications Medication Instructions Recorded Confirmed Albuterol Sulfate [Proventil 2 puff IH Q4H PRN 09/10/18 09/10/18 Inhaler] Atorvastatin Calcium [Lipitor] 20 mg PO DAILY 09/10/18 09/10/18 Cyclobenzaprine HCl 10 mg PO TID 09/10/18 09/10/18 Enalapril Maleate [Vasotec] 2.5 mg PO DAILY 09/10/18 09/10/18 Ferrous Sulfate [Iron] 325 mg PO DAILY 09/10/18 09/10/18 Fluticasone/Salmeterol [Advair 1 puff IH BID 09/10/18 09/10/18 250-50 Diskus] Furosemide [Lasix] 20 mg PO DAILY 09/10/18 09/10/18 Levothyroxine [Synthroid] 25 mcg PO DAILY 09/10/18 09/10/18 Metoprolol Succinate [Toprol Xl] 100 mg PO DAILY 09/10/18 09/10/18 Morphine Sulfate ER (12 HR) [MS 15 mg PO BID PRN 09/10/18 09/10/18 Contin] Multivitamin [One Daily Essential] 1 tab PO DAILY 09/10/18 09/10/18 Nitroglycerin [Nitrostat] 0.4 mg SL AD 09/10/18 09/10/18 Pantoprazole Sodium [Protonix] 40 mg PO DAILY 09/10/18 09/10/18 Paroxetine [Paxil] 20 mg PO DAILY 09/10/18 09/10/18 Potassium Chloride [Klor-Con 8 meq PO DAILY 09/10/18 09/10/18 Sprinkle] Tamsulosin [Flomax] 0.4 mg PO DAILY 09/10/18 09/10/18 Tramadol HCl [Ultram] 50 mg PO BID 09/10/18 09/10/18 clonazePAM [Clonazepam] 0.5 mg PO BID 09/10/18 09/10/18 Allergies Allergy/AdvReac Type Severity Reaction Status Date / Time rabbit dander Allergy Difficulty Verified 06/15/19 11:26 Breathing shellfish derived Allergy Swelling Verified 06/15/19 11:26 of Lip/Tongue/Throat Review of Systems: In addition to that documented in the HPI above, the additional ROS was obtained: Constitutional: Denies fevers Reports chills Eyes: Denies vision changes ENMT: Denies sore throat CV: Reports chest pain from broken ribs that is chronic in nature Resp: Reports chronic SOB GI: Denies vomiting Reports dark and tarry diarrhea : Denies painful urination MSK: Reports being resuscitated 1 month ago Skin: Denies new rashes Neuro: Denies new numbness or tingling or weakness Past Medical History - Past Medical History Attestation: Yes The following information was validated with the patient. Medical history: Reports: COPD, hyperlipidemia, hypertension, myocardial infarction Psychiatric history: Reports: no psych history - Social History Smoking Status: Never smoker Smokeless Tobacco Status: No Alcohol use: Reports: none Drug use: Reports: none Physical Exam General: Appears pale, eyes are closed but is conversant. Well developed, well nourished. Head: atraumatic, normocephalic. ENT: No conjunctival injection, no scleral icterus, conjunctival pallor. PERRLA. EOMI. Oropharynx non- erythematous. mucous membranes moist. Neuro: No focal deficits, no speech deficit, no facial droop. Pulm: Lungs CTAB A/P. No wheezes, rales, ronchi. Cardio: RRR no m/r/g. Chest tender to palpation. Abd: Soft, non-distended. Normoactive bowel sounds. Bruising present over lower abdomen consistent with reported heparin injections. : dark, tarry stool present on buttocks Extremities: Radial pulses 2+ hilary, dorsalis pedis/posterior tibialis 2+ hilary. No LE edema. Skin: cool, dry, intact. No rashes. Psych: Appropriate mood and affect. Answers questions appropriately. Cooperative with exam. - General General appearance: alert, in no apparent distress Course - Consultations Consultation #1: Spoke with Dr. Rehman, on GIB endoscopy call, who took the patient's information and stated he would see the patient in consult. Time: 12:06 Vital Signs Temperature 97.8 F 06/15/19 11:10 Pulse Rate 132 06/15/19 11:10 Respiratory Rate 20 06/15/19 11:10 Blood Pressure 87/66 06/15/19 11:10 O2 Sat by Pulse Oximetry 96 06/15/19 11:10 Temperature 97.8 F 06/15/19 13:03 Pulse Rate 124 06/15/19 13:06 Respiratory Rate 18 06/15/19 13:06 Blood Pressure 127/92 06/15/19 13:06 O2 Sat by Pulse Oximetry 100 06/15/19 13:06 Oxygen Delivery Oxygen Delivery Nasal Cannula Medical Decision Making - [facility] Narrative Medical decision making narrative: 63M with pmhx of recent cardiac event, G-tube placement last , that reports dark, tarry stool and weakness. Concern for GIB. Pt requests admission here if necessary. 1220: Pts Hg was <8, will be transfused 2u PRBCs. 1320: Pt responded to IVF and first unit of blood with appropriate increase in BP, while maintaining tachycardia. PT was admitted to the hospitalist, Dr. Armas, who agreed to accept the pt to his service. Gastroendoscopy for GIB was consulted, see course notes for full details. Results of the workup including any imaging and/or labwork was shared with the patient at bedside. Patient was given an opportunity to ask questions at bedside and all of their concerns were addressed. Patient verbalized understanding and agreement with plan of care. Pt was stable at time of disposition. 1340: Pt was complaining of Abd Pain, will obtain CT of Abd/pelvis and administer pain medications. - Medical Records Medical records reviewed: Yes I reviewed the patient's medical records. - Lab Data Lab results reviewed: Yes I reviewed the patient's lab results. Result diagrams: 06/15/19 11:31 06/15/19 11:31 Lab Results 06/15/19 06/15/19 06/15/19 Range/Units 11:31 11:31 11:31 WBC 15.2 H (4.3-11.1) K/mcL RBC 2.58 L (4.19-5.50) M/mcL Hgb 7.8 L (12.9-16.9) g/dL Hct 25.4 L (37.5-50.1) % MCV 98.4 (83.0-100.0) fL MCH 30.2 (28.0-33.3) pg MCHC 30.7 L (31.6-35.5) g/dL RDW 16.0 H (11.5-14.5) % Plt Count 350 (140-400) K/mcL MPV 10.4 (9.4-12.4) fL Immature Gran % 2.0 (0-4) % Seg Neutrophils % 74.5 % Lymphocytes % 14.1 % Monocytes % 8.7 % Eosinophils % 0.3 % Basophils % 0.4 % Neutrophils # 11.3 H (1.6-8.9) K/mcL Lymphocytes # 2.1 (0.6-4.6) K/mcL Monocytes # 1.3 (0.0-1.3) K/mcL Eosinophils # 0.1 (0.0-0.6) K/mcL Basophils # 0.1 (0.0-0.2) K/mcL Nucleated RBCs/100 WBC 0.2 H (0) /100 WBC PT 14.3 H (9.4-12.1) Seconds INR 1.3 APTT 22.7 L (26.0-36.0) Seconds VBG pH (7.32-7.42) pH Units VBG pCO2 (41-51) mmHg VBG pO2 (25-50) mmHg VBG HCO3 (21-27) mEq/L Sodium 138 (136-145) mEq/L Potassium 4.5 (3.5-5.1) mEq/L Chloride 99 (98-107) mEq/L Carbon Dioxide 26 (23-29) mEq/L BUN 33 H (8-23) mg/dL Creatinine 1.07 (0.70-1.30) mg/dL Est GFR ( Amer) > 60 (> 60) Est GFR (Non-Af Amer) > 60 (> 60) BUN/Creatinine Ratio 31 H (6-26) Glucose 233 H (70-105) mg/dL Calculated Osmolality 301 H (280-300) Lactic Acid (0.5-2.2) mmol/L Calcium 8.0 L (8.6-10.3) mg/dL Total Bilirubin 0.4 (0.3-1.0) mg/dL AST 20 (13-39) Units/L ALT 44 (7-52) Units/L Alkaline Phosphatase 162 H (34-104) Units/L Troponin I (< 0.04) ng/mL Serum Total Protein 5.3 L (6.4-8.9) g/dL Albumin 2.8 L (3.5-5.7) g/dL Globulin 2.5 (2.4-3.5) g/dL Albumin/Globulin Ratio 1.1 (1.1-2.2) Lipase (11-82) Units/L Ethyl Alcohol (Less than 10) mg/dL Blood Type Antibody Screen Crossmatch 06/15/19 06/15/19 06/15/19 Range/Units 11:31 11:31 11:31 WBC (4.3-11.1) K/mcL RBC (4.19-5.50) M/mcL Hgb (12.9-16.9) g/dL Hct (37.5-50.1) % MCV (83.0-100.0) fL MCH (28.0-33.3) pg MCHC (31.6-35.5) g/dL RDW (11.5-14.5) % Plt Count (140-400) K/mcL MPV (9.4-12.4) fL Immature Gran % (0-4) % Seg Neutrophils % % Lymphocytes % % Monocytes % % Eosinophils % % Basophils % % Neutrophils # (1.6-8.9) K/mcL Lymphocytes # (0.6-4.6) K/mcL Monocytes # (0.0-1.3) K/mcL Eosinophils # (0.0-0.6) K/mcL Basophils # (0.0-0.2) K/mcL Nucleated RBCs/100 WBC (0) /100 WBC PT (9.4-12.1) Seconds INR APTT (26.0-36.0) Seconds VBG pH (7.32-7.42) pH Units VBG pCO2 (41-51) mmHg VBG pO2 (25-50) mmHg VBG HCO3 (21-27) mEq/L Sodium (136-145) mEq/L Potassium (3.5-5.1) mEq/L Chloride (98-107) mEq/L Carbon Dioxide (23-29) mEq/L BUN (8-23) mg/dL Creatinine (0.70-1.30) mg/dL Est GFR ( Amer) (> 60) Est GFR (Non-Af Amer) (> 60) BUN/Creatinine Ratio (6-26) Glucose (70-105) mg/dL Calculated Osmolality (280-300) Lactic Acid 5.8 H* (0.5-2.2) mmol/L Calcium (8.6-10.3) mg/dL Total Bilirubin (0.3-1.0) mg/dL AST (13-39) Units/L ALT (7-52) Units/L Alkaline Phosphatase (34-104) Units/L Troponin I 0.03 (< 0.04) ng/mL Serum Total Protein (6.4-8.9) g/dL Albumin (3.5-5.7) g/dL Globulin (2.4-3.5) g/dL Albumin/Globulin Ratio (1.1-2.2) Lipase 25 (11-82) Units/L Ethyl Alcohol < 10 (Less than 10) mg/dL Blood Type O POSITIVE Antibody Screen NEGATIVE Crossmatch See Detail 06/15/19 Range/Units 11:48 WBC (4.3-11.1) K/mcL RBC (4.19-5.50) M/mcL Hgb (12.9-16.9) g/dL Hct (37.5-50.1) % MCV (83.0-100.0) fL MCH (28.0-33.3) pg MCHC (31.6-35.5) g/dL RDW (11.5-14.5) % Plt Count (140-400) K/mcL MPV (9.4-12.4) fL Immature Gran % (0-4) % Seg Neutrophils % % Lymphocytes % % Monocytes % % Eosinophils % % Basophils % % Neutrophils # (1.6-8.9) K/mcL Lymphocytes # (0.6-4.6) K/mcL Monocytes # (0.0-1.3) K/mcL Eosinophils # (0.0-0.6) K/mcL Basophils # (0.0-0.2) K/mcL Nucleated RBCs/100 WBC (0) /100 WBC PT (9.4-12.1) Seconds INR APTT (26.0-36.0) Seconds VBG pH 7.35 (7.32-7.42) pH Units VBG pCO2 45 (41-51) mmHg VBG pO2 40 (25-50) mmHg VBG HCO3 25 (21-27) mEq/L Sodium (136-145) mEq/L Potassium (3.5-5.1) mEq/L Chloride (98-107) mEq/L Carbon Dioxide (23-29) mEq/L BUN (8-23) mg/dL Creatinine (0.70-1.30) mg/dL Est GFR ( Amer) (> 60) Est GFR (Non-Af Amer) (> 60) BUN/Creatinine Ratio (6-26) Glucose (70-105) mg/dL Calculated Osmolality (280-300) Lactic Acid (0.5-2.2) mmol/L Calcium (8.6-10.3) mg/dL Total Bilirubin (0.3-1.0) mg/dL AST (13-39) Units/L ALT (7-52) Units/L Alkaline Phosphatase (34-104) Units/L Troponin I (< 0.04) ng/mL Serum Total Protein (6.4-8.9) g/dL Albumin (3.5-5.7) g/dL Globulin (2.4-3.5) g/dL Albumin/Globulin Ratio (1.1-2.2) Lipase (11-82) Units/L Ethyl Alcohol (Less than 10) mg/dL Blood Type Antibody Screen Crossmatch - Radiology Data Radiology results reviewed: Yes I reviewed the patient's radiology results. Chest X-Ray 06/15/19 12:08 IMPRESSION: Mild cardiomegaly and stable elevation of the right hemidiaphragm No acute process within the chest D/ / 06/15/2019 12:12:50 [facility] Provider: Uriel Topete MD - EKG Data EKG #1 EKG attestation: Yes I reviewed and interpreted this EKG. EKG results narrative: 137, rhythm sinus tachycardia with PVCs present, axis normal. ID [id number] and shortened, QRS 91, QTC 482. ST segment depression in II, aVF, V4. When compared to previous EKG dated 09/10/18, the previous EKG shows sinus tachycardia at 126 with ventricular bigeminy which is not present on current EKG.
[2019-06-15 11:51] LABS: VBG HCO3 25 mEq/L (21-27); VBG PCO2 45 mmHg (41-51); VBG PH 7.35 pH Units (7.32-7.42); VBG PO2 40 mmHg (25-50)
[2019-06-15 12:00] LABS: INR 1.3; Prothrombin Time 14.3 Seconds (9.4-12.1)
[2019-06-15 12:03] LABS: Activated Partial Thrombo Time 22.7 Seconds (26.0-36.0)
[2019-06-15 12:08] LABS: Alanine Aminotransferase 44 Units/L (7-52); Albumin 2.8 g/dL (3.5-5.7); Albumin/Globulin Ratio 1.1 (1.1-2.2); Alkaline Phosphatase 162 Units/L (34-104); Aspartate Amino Transferase 20 Units/L (13-39); BUN/Creatinine Ratio 31 (6-26); Bilirubin,Total 0.4 mg/dL (0.3-1.0); Blood Urea Nitrogen 33 mg/dL (8-23); Carbon Dioxide 26 mEq/L (23-29); Chloride 99 mEq/L (98-107); Globulin 2.5 g/dL (2.4-3.5); Glucose 233 mg/dL (70-105); Osmolality,Calculated 301 (280-300); Potassium 4.5 mEq/L (3.5-5.1); Sodium 138 mEq/L (136-145); Total Protein 5.3 g/dL (6.4-8.9); eGFR For African Americans > 60 (> 60); eGFR For Non-African Americans > 60 (> 60)
[2019-06-15] MEDS ORDERED: Calcium Gluconate 1gm/50mL 1 GM/50 ML BAG IVPB ONE ×2 (12:08→12:27)
[2019-06-15 12:10] LABS: Ethanol < 10 mg/dL (Less than 10); Lipase 25 Units/L (11-82)
[2019-06-15 12:11] LABS: Troponin I 0.03 ng/mL (< 0.04)
[2019-06-15] MEDS ORDERED: *HR* FentaNYL (PF) 100 MCG/2 ML VIAL IVP ONE (13:24)
[2019-06-15] MEDS ORDERED: Naloxone 0.4 MG/ML INJ IVP PRN (13:28)
[2019-06-15] MEDS ORDERED: Ondansetron 4 MG/2 ML VIAL IVP PRN (13:28)
[2019-06-15] MEDS ORDERED: *HR* Dextrose 50 % in Water (Syg) 50 ML SYRINGE IVP PRN (13:37)
[2019-06-15] MEDS ORDERED: D5% in Water 1,000 ML IVC PRN (13:37)
[2019-06-15] MEDS ORDERED: Isovue-370 500 ML BOTTLE IVP ONE (13:37)
[2019-06-15] MEDS ORDERED: Dextrose Gel 15 GM/37.5 ML TUBE PO PRN ×2 (13:37)
[2019-06-15] MEDS ORDERED: Piperacillin/Tazobactam 3.375 GM in 0.9 % Sodium Chloride Mini Bag 100 ML IVPB SCH (13:40)
[2019-06-15 14:46] LABS: Estimated Average Glucose 114 mg/dl
[2019-06-15] MEDS: D5% in Lactated Ringers 1,000 ML IVC SCH ×2 (16:30→23:56)
--- NOTE | 2019-06-15 16:36 | Internal Med History&Physical ---
Date of Encounter: 06/15/19 Time of Encounter: 16:17 Internal Medicine - H&P: HPI Chief complaint: generalized weakness. dark stool. Plans for Post Hospital Care: Home History of present illness: Mr. Gale is a 63 year old male PMH of recent cardiac arrest, hypertension, hyperlipidemia, COPD, CAD post [place]. Patient was brought to the hospital from home due to cola colored emesis and dark stool. Information provided by the patient's daughter at bedside and the patient . As per patient's daughter patient had a prolonged hospitalization at the [facility] for about a month, from where he was discharged about a week ago. She reported patient was admitted due to a cardiopulmonary arrest, requiring vent support, was found to have pneumonia, strep viridans and coag negative staph bacteremia, for which the patient was treated for possible endocarditis based on Ni's criteria, TTE showed no vegetation, but they could not do a DARRELL due to epiglottis edema. Reported during that admission patient also had multiple episodes of aspiration which let to respiratory failure requiring re-intubation. He failed a swallow evaluation and due to the concern and high risk of aspiration a PEG tube was placed about week ago today. He was discharged from the hospital on Ceftriaxone 2gm/IV daily to complete 6 weeks of treatment for possible endocarditis. Per patient's daughter they returned home to [place] and the patient was doing fairly well, but for the past couple of days he has been getting progressively weaker, last night he had multiple episodes cola colored emesis and has been having dark loose stool. Also reported shortness of breath and light headedness, reported he felt like if he stood up he would fall. Patient also reported generalized abdominal pain. denies chest pain, or Hx of PUD. In the ED patient was found to be hypotensive, tachycardic, and had large BM of dark stool. Hospitalist called for management and coordination of care. Past Med Surg Social Fam HX - Past Medical History Medical history: COPD, hyperlipidemia, hypertension, myocardial infarction Additional medical history: coded 1 month ago Psychiatric history: no psych history - Past Surgical History Additional surgical history: Heart cath. g tube - Social History Smoking Status: Never smoker Smokeless Tobacco Status: No Alcohol use: none Drug use: none - Family History Father Living Status: Hx Family Cardiac Disorders: Yes (CABG at 22 years old) Hx Family Cancer: Yes (adnocarcinoma) Mother Living Status: Still Living Hx Family Cardiac Disorders: Yes ([place] x 3) Hx Family Neurologic Disorders: Yes (alzheimers) Internal Medicine - H&P: Meds Albuterol Sulfate [Proventil Inhaler] 1 puff IH Q6H PRN 09/10/18 [History] Atorvastatin Calcium [Lipitor] 20 mg PO DAILY 09/10/18 [History] Cyclobenzaprine HCl 10 mg PO TID PRN 09/10/18 [History] Levothyroxine [Synthroid] 25 mcg PO QAM 09/10/18 [History] Nitroglycerin [Nitrostat] 0.4 mg SL Q5MIN PRN 09/10/18 [History] Pantoprazole Sodium [Protonix] 40 mg PO DAILY 09/10/18 [History] Paroxetine [Paxil] 20 mg PO DAILY 09/10/18 [History] Aspirin [Lo-Dose Aspirin EC] 81 mg PO DAILY 06/15/19 [History] Budesonide/Formoterol 160/4.5 [Symbicort 160/4.5] 1 puff IH BIDR 06/15/19 [History] Metoprolol Tartrate 50 mg PO BID 06/15/19 [History] Oxycodone HCl 5 mg PO Q6H PRN 06/15/19 [History] traZODone [TraZODone] 50 mg PO HS 06/15/19 [History] Allergy/AdvReac Type Severity Reaction Status Date / Time rabbit dander Allergy Difficulty Verified 06/15/19 11:26 Breathing shellfish derived Allergy Swelling Verified 06/15/19 11:26 of Lip/Tongue/Throat All Systems PM: A 10-system review of systems was performed and is negative for pertinent findings except as documented above in the HPI. - Constitutional Constitutional: fatigue, weakness, no chills, no fever(s) - Cardiovascular Cardiovascular ROS IM: dyspnea, lightheadedness, no chest pain, no dyspnea on exertion, no palpitations - Respiratory Respiratory: no cough - Gastrointestinal Gastrointestinal: abdominal pain, hematemesis, melena, nausea, vomiting - Genitourinary Genitourinary ROS male: no dysuria, no urinary hesitancy - Musculoskeletal Musculoskeletal ROS IM: no numbness, no stiffness - Integumentary Integumentary IM: no erythema - Neurological Neurological ROS: no headache(s) - Psychiatric Psychiatric: no hopelessness, no irritability - Endocrine Endocrine IM: no cold intolerance, no excessive sweating - Hematologic/Lymphatic Hematologic/Lymphatic: no lymphadenopathy - Allergic/Immunologic Allergic/Immunologic: no GI upset with certain foods - Constitutional Vitals: Temp Pulse Resp BP Pulse Ox 97.5 F L 114 18 129/21 97 06/15/19 15:55 06/15/19 15:55 06/15/19 15:55 06/15/19 15:55 06/15/19 15:55 Exam: Vitals: Reviewed General: Alert and oriented x4. In mild distress due to abdominal pain, and weakness. HEENT: dry mucus membrane, EOM, pupils equal, round and reactive. Cardiovascular: tachycardic, normal S1 & S2, no rubs, murmurs or gallops. Lungs: CTA b/l, no wheezes or crackles. Abdomen: Soft, mild generalized tenderness to superficial palpation, no rigidity or guarding. PEG tube clean, no signs of infection. Extremities: No deformity, no edema or tenderness, no joint swelling or clubbing. Neurological: No focal neurological abnormalities. Rest of the physical exam is non contributory Internal Med - H&P Results - Labs CBC & Chem 7: 06/15/19 11:31 06/15/19 11:31 Labs: Short CBC 06/15/19 Range/Units 11:31 WBC 15.2 H (4.3-11.1) K/mcL Hgb 7.8 L (12.9-16.9) g/dL Hct 25.4 L (37.5-50.1) % Plt Count 350 (140-400) K/mcL Neutrophils # 11.3 H (1.6-8.9) K/mcL BMP 06/15/19 11:31 Sodium 138 Potassium 4.5 Chloride 99 Carbon Dioxide 26 BUN 33 H Creatinine 1.07 Glucose 233 H Calcium 8.0 L Cardiac Enzymes 06/15/19 Range/Units 11:31 Troponin I 0.03 (< 0.04) ng/mL Liver Function 06/15/19 Range/Units 11:31 Total Bilirubin 0.4 (0.3-1.0) mg/dL AST 20 (13-39) Units/L ALT 44 (7-52) Units/L Alkaline Phosphatase 162 H (34-104) Units/L Albumin 2.8 L (3.5-5.7) g/dL - ABG Interpretation ABG results: 06/15/19 11:48 VBG pH 7.35 VBG pCO2 45 VBG pO2 40 VBG HCO3 25 - Impressions ITS Impressions Chest X-Ray 06/15/19 12:08 IMPRESSION: Mild cardiomegaly and stable elevation of the right hemidiaphragm No acute process within the chest D/ / 06/15/2019 12:12:50 Uriel Topete MD / sergio Interpreting Provider: Uriel Topete MD Abdomen/Pelvis CT 06/15/19 15:30 IMPRESSION: 1. A hypoenhancing mass is present along the pancreatic head which measures 3.5 x 2.7 x 2.3 cm and is most concerning for a primary pancreatic neoplasm. Adjacent enlarged peripancreatic lymph nodes measure up to 3.0 x 2.0 cm and are concerning for metastatic disease. No liver lesions are visualized. 2. Centrilobular micronodules in the right lung base are most likely infectious in etiology. 3. Cholelithiasis without evidence of acute cholecystitis. D/ / 06/15/2019 15:48:27 Raúl Rosales MD / sergio Interpreting Provider: Raúl Rosales MD - Diagnostic Studies Chest x-ray Status: image reviewed by me (no focal abnormalities. ) - Assessment and Plan (1) Hypotension Current Visit: Yes Status: Acute Assessment and plan: multifactorial, secondary to dehydration and GI bleed. r/o sepsis. Plan: patient appropriately resuscitated with IV fluids. 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 Patient is being treated for possible endocarditis. ID consulted, recommendations appreciated will repeat lactic acid following appreciate fluid resuscitation, and blood transfusion. Abd/pelvic CT with IV no oral contrast ordered Qualifiers: Hypotension type: unspecified hypotension type Qualified Code(s): I95.9 - Hypotension, unspecified (2) Dehydration Current Visit: Yes Status: Acute Assessment and plan: plan of care as above (3) Elevated lactic acid level Current Visit: Yes Status: Acute Assessment and plan: plan of care as per problem #1 (4) Pancreatic mass Current Visit: Yes Status: Acute Assessment and plan: CT/CT abd pelvis w iv no oral IMPRESSION: 1. A hypoenhancing mass is present along the pancreatic head which measures 3.5 x 2.7 x 2.3 cm and is most concerning for a primary pancreatic neoplasm. Adjacent enlarged peripancreatic lymph nodes measure up to 3.0 x 2.0 cm and are concerning for metastatic disease. No liver lesions are visualized. 2. Centrilobular micronodules in the right lung base are most likely infectious in etiology. 3. Cholelithiasis without evidence of acute cholecystitis. Plan will consult GI for evaluation for possible US guided Biopsy vs ERCP ca 19-9 ordered will consult hem&Onc following GI evaluation. (5) Endocarditis Current Visit: Yes Status: Suspected Assessment and plan: Patient was started on Ceftriaxone 2gm/IV daily x 6 weeks at the [facility] where the patient was hospitalized. Based on DC papers there was concern for possible endocarditis based on Ni's criteria. DARRELL was attempted but not done during that admission due to epiglottis edema. ID has been consulted. Recommendation appreciated. Qualifiers: Endocarditis type: unspecified Chronicity: subacute Qualified Code(s): I33.9 - Acute and subacute endocarditis, unspecified (6) CAD (coronary artery disease) Current Visit: Yes Status: Chronic Assessment and plan: Hold antiplatelet medication due to GI bleed. Continue statin. Qualifiers: Coronary Disease-Associated Artery/Lesion type: unspecified vessel or lesion type [place] vs. transplanted heart: unspecified whether [place] or transplanted heart Associated angina: angina presence unspecified Qualified Code(s): I25.10 - Atherosclerotic heart disease of [place] coronary artery without angina pectoris (7) Anemia Current Visit: Yes Status: Acute Assessment and plan: Patient being transfused 2 units of PRBCs due to symptomatic anemia in the setting of possible GI bleed. Qualifiers: Anemia type: unspecified type Qualified Code(s): D64.9 - Anemia, unspec ified (8) GI bleed Current Visit: Yes Status: Acute Assessment and plan: plan of care as per problem #1 Qualifiers: GI bleed type/associated pathology: melena Qualified Code(s): K92.1 - Melena (9) COPD (chronic obstructive pulmonary disease) Current Visit: No Status: Chronic Assessment and plan: patient not on acute exacerbation. chest is clear to auscultation b/l. started on bronchodilators Q4RT PRN and symbicort. incentive spirometry if tolerated. Qualifiers: COPD type: emphysema Emphysema type: unspecified Qualified Code(s): J43.9 - Emphysema, unspecified (10) DVT prophylaxis Current Visit: Yes Status: Acute Assessment and plan: intermittent pneumatic compression for dvt prophylaxis. no chemical dvt prophylaxis due to GI bleed. (11) Hypothyroid Current Visit: Yes Status: Chronic Assessment and plan: will resume home dose of levothyroxine. THS ordered. Qualifiers: Hypothyroidism type: unspecified Qualified Code(s): E03.9 - Hypothyroidism, unspecified - Time Spent With Patient Total time spent is greater than 50% in coordination of care (as documented) at patient's floor/unit and/or counseling patient: Greater than 35 minutes (55)
[2019-06-15] MEDS: cefTRIAXone 2,000 MG in Water for inj. (sterile) 20 ML IVP SCH (17:05)
[2019-06-15] MEDS: Pantoprazole 40 MG VIAL IVP SCH (17:09)
--- NOTE | 2019-06-15 17:21 | Internal Medicine Consult Note ---
Date of Encounter: 06/18/19 Time of Encounter: 17:18 - Assessment and Plan (1) Anemia Current Visit: Yes Status: Acute Assessment and plan: His history, blood count, is consistent with what may be acute GI bleeding, most likely from an upper GI source. Ulceration, gastritis, esophagitis to be considered. Complication from G-tube placement is much less likely, cannot exclude small bowel bleeding as well, colon bleeding does not seem possible at this time. I mentioned hospital benefits of upper endoscopy, there are really no alternatives. We will provide that in the morning, he is being transfused at this time with appropriate fluid resuscitation. He has had a good improvement with his heart rate and blood pressure with this. We will make sure he is getting PPI therapy, hold antiplatelet therapy. Risks and benefits of endoscopy, to include perforation, bleeding have been discussed with the daughter and the patient. Qualifiers: Anemia type: unspecified type Qualified Code(s): D64.9 - Anemia, unspecified (2) Sleep apnea Current Visit: Yes Status: Chronic Qualifiers: Sleep apnea type: unspecified type Qualified Code(s): G47.30 - Sleep apnea, unspecified (3) Hypothyroid Current Visit: Yes Status: Chronic Qualifiers: Hypothyroidism type: unspecified Qualified Code(s): E03.9 - Hypothyroidism, unspecified (4) CAD (coronary artery disease) Current Visit: Yes Status: Chronic Qualifiers: Coronary Disease-Associated Artery/Lesion type: unspecified vessel or lesion type [place] vs. transplanted heart: unspecified whether [place] or transplanted heart Associated angina: angina presence unspecified Qualified Code(s): I25.10 - Atherosclerotic heart disease of [place] coronary artery without angina pectoris (5) HTN (hypertension) Current Visit: No Status: Chronic Qualifiers: Hypertension type: essential hypertension Qualified Code(s): I10 - Essential (primary) hypertension (6) COPD (chronic obstructive pulmonary disease) Current Visit: No Status: Chronic Qualifiers: COPD type: emphysema Emphysema type: unspecified Qualified Code(s): J43.9 - Emphysema, unspecified (7) History of cardiac arrest Current Visit: Yes Status: Chronic Internal Medicine - CN: HPI - Data of Consult Requesting Physician: Ignacio Armas MD - Consult Narrative Reason for consult: Possible GI bleeding, noted blood loss. History of present illness: Mr. Gale is a 63 year old male seen in 2 N., at the request of the hospitalist service. I was called by the ED provider earlier in the day, with the concern for possible GI bleeding. This gentleman for the last almost 30 days reported some dark intermittent stools, in fact today his daughter states he had 2 small bouts of [employer] colored emesis. He is also reported some minimal vague upper abdominal discomfort yesterday but no reflux. This gentleman has had a prolonged hospital course recently in fact 2 days ago returned from [place] after having cardiac arrest in [place] and apparent what may have been endocarditis diagnosis as well. During the hospital stay, he was intubated, he has required a G-tube placement due to dysphagia and aspiration. Currently he is awake, and alert, answering questions properly so. Appears older than his stated age, I would say he has mild to moderate frailty. His daughter is present and provides a good deal of information quite helpful. His last colonoscopy was roughly 2-3 years ago, found to be normal, he has never had upper endoscopy. Hemoglobin in the emergency room was found to be 7.7, although previous hemoglobin per his daughter was above 12. He was taking aspirin therapy, I believe also was taking PPI therapy as well. Past Med Surg Social Fam HX - Past Medical History Medical history: COPD, coronary artery disease, diabetes, hyperlipidemia, hypertension, myocardial infarction, other (Obstructive sleep apnea with O2 dependence, hypothyroidism) Additional medical history: coded 1 month ago Psychiatric history: no psych history - Past Surgical History Additional surgical history: Heart cath. g tube - Social History Smoking Status: Never smoker Smokeless Tobacco Status: No Alcohol use: none Drug use: none - Family History Father Living Status: Hx Family Cardiac Disorders: Yes (CABG at 22 years old) Hx Family Cancer: Yes (adnocarcinoma) Mother Living Status: Still Living Hx Family Cardiac Disorders: Yes ([place] x 3) Hx Family Neurologic Disorders: Yes (alzheimers) - Constitutional Constitutional: fatigue, no anorexia, no chills, no fever(s) - Cardiovascular Cardiovascular ROS IM: claudication, dyspnea, dyspnea on exertion, no chest pain, no diaphoresis, no edema, no syncope - Respiratory Respiratory: no cough, no dyspnea, no hemoptysis - Gastrointestinal Gastrointestinal: abdominal pain, coffee ground emesis, diarrhea, dyspepsia, melena - Musculoskeletal Musculoskeletal ROS IM: no joint swelling, no myalgias, no neck pain, no stiffness - Neurological Neurological ROS: weakness, no focal weakness, no frequent falls, no lack of coordination - Hematologic/Lymphatic Hematologic/Lymphatic: no easy bleeding, no easy bruising Internal Medicine - CN: Meds Albuterol Sulfate [Proventil Inhaler] 1 puff IH Q6H PRN 09/10/18 [History] Atorvastatin Calcium [Lipitor] 20 mg PO DAILY 09/10/18 [History] Cyclobenzaprine HCl 10 mg PO TID PRN 09/10/18 [History] Levothyroxine [Synthroid] 25 mcg PO QAM 09/10/18 [History] Nitroglycerin [Nitrostat] 0.4 mg SL Q5MIN PRN 09/10/18 [History] Pantoprazole Sodium [Protonix] 40 mg PO DAILY 09/10/18 [History] Paroxetine [Paxil] 20 mg PO DAILY 09/10/18 [History] Aspirin [Lo-Dose Aspirin EC] 81 mg PO DAILY 06/15/19 [History] Budesonide/Formoterol 160/4.5 [Symbicort 160/4.5] 1 puff IH BIDR 06/15/19 [History] Metoprolol Tartrate 50 mg PO BID 06/15/19 [History] Oxycodone HCl 5 mg PO Q6H PRN 06/15/19 [History] traZODone [TraZODone] 50 mg PO HS 06/15/19 [History] Allergy/AdvReac Type Severity Reaction Status Date / Time rabbit dander Allergy Difficulty Verified 06/15/19 11:26 Breathing shellfish derived Allergy Swelling Verified 06/15/19 11:26 of Lip/Tongue/Throat Internal Med - CN: Exam - Constitutional Vitals: Temp Pulse Resp BP Pulse Ox 97.5 F L 114 18 129/21 97 06/15/19 15:55 06/15/19 15:55 06/15/19 15:55 06/15/19 15:55 06/15/19 15:55 General appearance IM: Present: disheveled, A&O X 3, no acute distress, obese, answers questions appropriately - Head Head exam: Present: normal inspection - ENT ENT exam: Present: mucous membranes dry - Neck Neck exam general surgery: Present: supple, trachea midline. Absent: nuchal rigidity - Respiratory Additional comments: Good effort, mild decreased airflow in all britt, apices clear, no wheeze and rhonchus change. No tachypnea. - Cardiovascular Cardiovascular exam IM: Present: RRR, +S1, +S2. Absent: irregular rhythm, JVD - GI/Abdominal GI/Abdominal exam IM: Present: normal bowel sounds, tenderness, no peritoneal signs Additional comments: Numerous annular areas of small ecchymosis across the abdomen consistent with subcutaneous heparin injections remotely. G-tube in place, there is also a button, sutured closed the G-tube of unknown significance. - Rectal Rectal exam: Present: deferred Internal Medicine - CN: Reslt - Labs CBC & Chem 7: 06/18/19 12:00 06/18/19 07:30 Labs: Short CBC 06/15/19 Range/Units 11:31 WBC 15.2 H (4.3-11.1) K/mcL Hgb 7.8 L (12.9-16.9) g/dL Hct 25.4 L (37.5-50.1) % Plt Count 350 (140-400) K/mcL Neutrophils # 11.3 H (1.6-8.9) K/mcL BMP 06/15/19 11:31 Sodium 138 Potassium 4.5 Chloride 99 Carbon Dioxide 26 BUN 33 H Creatinine 1.07 Glucose 233 H Calcium 8.0 L Cardiac Enzymes 06/15/19 Range/Units 11:31 Troponin I 0.03 (< 0.04) ng/mL Liver Function 06/15/19 Range/Units 11:31 Total Bilirubin 0.4 (0.3-1.0) mg/dL AST 20 (13-39) Units/L ALT 44 (7-52) Units/L Alkaline Phosphatase 162 H (34-104) Units/L Albumin 2.8 L (3.5-5.7) g/dL - ABG Interpretation ABG results: PT/INR, D-dimer PT 14.3 Seconds (9.4-12.1) H 06/15/19 11:31 - Impressions Impressions Chest X-Ray 06/15/19 12:08 IMPRESSION: Mild cardiomegaly and stable elevation of the right hemidiaphragm No acute process within the chest D/ / 06/15/2019 12:12:50 Uriel Topete MD / sergio Interpreting Provider: Uriel Topete MD Abdomen/Pelvis CT 06/15/19 15:30 IMPRESSION: 1. A hypoenhancing mass is present along the pancreatic head which measures 3.5 x 2.7 x 2.3 cm and is most concerning for a primary pancreatic neoplasm. Adjacent enlarged peripancreatic lymph nodes measure up to 3.0 x 2.0 cm and are concerning for metastatic disease. No liver lesions are visualized. 2. Centrilobular micronodules in the right lung base are most likely infectious in etiology. 3. Cholelithiasis without evidence of acute cholecystitis. D/ / 06/15/2019 15:48:27 Raúl Rosales MD / sergio Interpreting Provider: Raúl Rosales MD Consult Discharge Plan - Plan Referrals: Marquez Pina DO [Resident] - 06/22/19 10:00 am
[2019-06-15] MEDS: Metoprolol XL (24 HR) Succ 50 MG TAB.ER.24H PO SCH (18:04)
[2019-06-15] MEDS: traMADol 50 MG TABLET PO PRN (18:04)
[2019-06-15] MEDS: Insulin LISPRO 300 UNITS/3 ML VIAL SQ SCH ×2 (18:05→23:56)
[2019-06-15 19:30] LABS: Basophils # 0.1 K/mcL (0.0-0.2); Basophils % 0.4 %; Eosinophils % 0.1 %; Hematocrit 24.7 % (37.5-50.1); Hemoglobin 7.9 g/dL (12.9-16.9); Immature Granulocytes % 2.2 % (0-4); Lymphocytes # 1.8 K/mcL (0.6-4.6); Lymphocytes % 13.2 %; Mean Corpuscular Hemoglobin 30.6 pg (28.0-33.3); Mean Corpuscular Volume 95.7 fL (83.0-100.0); Mean Platelet Volume 10.2 fL (9.4-12.4); Monocytes # 1.4 K/mcL (0.0-1.3); Neutrophils # 10.3 K/mcL (1.6-8.9); Nucleated Red Blood Cells 0.5 /100 WBC (0); Platelet Count 280 K/mcL (140-400); Red Blood Count 2.58 M/mcL (4.19-5.50); Red Cell Distribution Width 15.5 % (11.5-14.5); Segmented Neutrophils % 74.1 %; White Blood Count 13.9 K/mcL (4.3-11.1)
[2019-06-15] MEDS: Budesonide/Formoterol 160/4.5 1 PUFF INH IH SCH (20:28)
[2019-06-15] MEDS: clonazePAM 0.5 MG TABLET PO PRN (21:52)
[2019-06-15 22:23] LABS: Basophils % 0.3 %; Eosinophils % 0.3 %; Hemoglobin 7.1 g/dL (12.9-16.9); Immature Granulocytes % 2.3 % (0-4); Lymphocytes % 15.7 %; Mean Corpuscular HGB Conc 32.3 g/dL (31.6-35.5); Mean Corpuscular Hemoglobin 30.9 pg (28.0-33.3); Mean Corpuscular Volume 95.7 fL (83.0-100.0); Mean Platelet Volume 10.1 fL (9.4-12.4); Monocytes # 1.4 K/mcL (0.0-1.3); Monocytes % 10.6 %; Neutrophils # 9.1 K/mcL (1.6-8.9); Nucleated Red Blood Cells 0.5 /100 WBC (0); Platelet Count 263 K/mcL (140-400); Segmented Neutrophils % 70.8 %; White Blood Count 12.9 K/mcL (4.3-11.1)
[2019-06-16 02:13] LABS: BUN/Creatinine Ratio 31 (6-26); Blood Urea Nitrogen 24 mg/dL (8-23); Calcium 7.1 mg/dL (8.6-10.3); Carbon Dioxide 28 mEq/L (23-29); Chloride 108 mEq/L (98-107); Glucose 126 mg/dL (70-105); Magnesium 1.9 mg/dL (1.6-2.6); Osmolality,Calculated 294 (280-300); Phosphorous 2.5 mg/dL (2.7-4.5); Potassium 3.9 mEq/L (3.5-5.1); Sodium 139 mEq/L (136-145); eGFR For African Americans > 60 (> 60); eGFR For Non-African Americans > 60 (> 60)
[2019-06-16] MEDS: D5% in Lactated Ringers 1,000 ML IVC SCH (03:32)
[2019-06-16] MEDS: Insulin LISPRO 300 UNITS/3 ML VIAL SQ SCH ×4 (05:49→23:49)
[2019-06-16] MEDS: Pantoprazole 40 MG VIAL IVP SCH ×2 (05:51→17:02)
[2019-06-16] MEDS: Levothyroxine 25 MCG TABLET PO SCH (05:51)
[2019-06-16] MEDS: traMADol 50 MG TABLET PO PRN ×2 (05:52→15:02)
--- NOTE | 2019-06-16 06:48 | Electrocardiograph Report ---
[facility] Test Date: 2019-06-15 Pat Name: Ez Gale Department: [id number] Room: 05 Gender: M Contracting Support Specialist: : [id number] Requested By: Lul Casanova Order Number: [id number] Reading MD: Rohan Abel Measurements Intervals [place] Rate: 137 P: 16 CT: 105 QRS: -1 QRSD: 91 T: 136 QT: 319 QTc: 482 Interpretive Statements Sinus tachycardia Multiform ventricular premature complexes Electronically Signed On 06-16-2019 6:47:08 EDT by Rohan Abel
[2019-06-16] MEDS ORDERED: 0.9 % Sodium Chloride 250 ML ONE ×2 (07:45→22:32)
[2019-06-16] MEDS ORDERED: *HR* FentaNYL (PF) 100 MCG/2 ML VIAL ONE (07:54)
[2019-06-16] MEDS ORDERED: *HR* Midazolam HCl 5 MG/5 ML VIAL IVP ONE ×2 (07:54→08:22)
[2019-06-16 08:07] LABS: Basophils % 0.2 %; Eosinophils # 0.2 K/mcL (0.0-0.6); Hematocrit 19.6 % (37.5-50.1); Hemoglobin 6.1 g/dL (12.9-16.9); Immature Granulocytes % 2.1 % (0-4); Lymphocytes # 1.8 K/mcL (0.6-4.6); Lymphocytes % 18.7 %; Mean Corpuscular HGB Conc 31.1 g/dL (31.6-35.5); Mean Corpuscular Hemoglobin 30.8 pg (28.0-33.3); Monocytes # 0.9 K/mcL (0.0-1.3); Monocytes % 9.3 %; Neutrophils # 6.6 K/mcL (1.6-8.9); Nucleated Red Blood Cells 0.5 /100 WBC (0); Platelet Count 233 K/mcL (140-400); Red Blood Count 1.98 M/mcL (4.19-5.50); Red Cell Distribution Width 16.8 % (11.5-14.5); Segmented Neutrophils % 67.7 %; White Blood Count 9.8 K/mcL (4.3-11.1)
[2019-06-16] MEDS ORDERED: Tetracaine/Benzocaine/Butamben 1 SPRAY AEROSOL MM ONE (08:22)
[2019-06-16] MEDS ORDERED: Simethicone 40 MG/0.6 ML MLS IR ONE (08:22)
[2019-06-16] MEDS ORDERED: *HR* FentaNYL (PF) 100 MCG/2 ML VIAL IVP ONE (08:22)
--- NOTE | 2019-06-16 08:23 | Pre-Sedation Evaluation ---
Pre-sedation evaluation - Pre-sedation checklist Date of procedure: 06/16/19 Procedure: EGD Recent Vitals: Last Vital Signs Temp 98.2 F 06/16/19 08:20 Pulse 79 06/16/19 08:20 Resp 16 06/16/19 08:20 BP 119/69 06/16/19 08:20 Pulse Ox 94 06/16/19 08:20 H&P (including ROS) documented in medical record: Yes Previous reaction to sedatives/anesthetics: No Dietary Status: NPO after Midnight Airway Assessment: Patient can open mouth completely, TMJ function normal Dentition: poor dentition Possible difficult airway: No ASA Classification *see protocol: CLASS III-Severe systemic disease
--- NOTE | 2019-06-16 08:57 | Event Note ---
Date of Encounter: 06/16/19 Time of Encounter: 08:54 Attempted EGD: 1. Unable to intubate the esophagus, tried sitting the patient up in bed, tried a bronchoscope, still not able to see any sort of esophageal lumen. After the procedure, attempted to flush the G-tube without difficulty. Did not return any blood or coffee-ground material. Impressions: 1. Failed EGD due to inability to intubate the Esoph. 2. No blood at this time in the stomach 3. Bleeding source consistent with small bowel bleeding. Treatment: 1. Supportive care, PPI therapy. 2. Transfuse as needed ( 2nd Unit going now)
[2019-06-16] MEDS ORDERED: 0.9 % Sodium Chloride 250 ML IVC SCH (09:00)
[2019-06-16] MEDS: Budesonide/Formoterol 160/4.5 1 PUFF INH IH SCH ×2 (10:34→20:01)
[2019-06-16] MEDS: Metoprolol XL (24 HR) Succ 50 MG TAB.ER.24H PO SCH (10:42)
--- NOTE | 2019-06-16 11:11 | Event Note ---
Date of Encounter: 06/16/19 Time of Encounter: 11:09 Discussion with he and Daughter.. with ongoing Melena, vitals still stable, will plan Colonoscopy tomorrow. Risks discussed, consent signed. Will plan prep later today.
[2019-06-16 11:16] LABS: Bilirubin,Urine Negative (Negative); Blood,Urine Negative (Negative); Clarity,Urine Cloudy (Clear); Color,Urine Yellow (Yellow); Glucose,Urine (UA) Normal (Normal); Ketones,Urine Negative (Negative); Leukocyte Esterase,Urine Negative (Negative); Nitrite,Urine Negative (Negative); PH,Urine 5.5 pH Units (5.0-8.0); Protein,Urine Negative (Neg-Trace); Specific Gravity,Urine > 1.030 (1.010-1.025); Urobilinogen,Urine Normal (Normal)
[2019-06-16 11:19] LABS: Bacteria,Urine None Seen per hpf (None-Few); Hyaline Casts,Urine None Seen per lpf (None-Few); RBC,Urine 0-3 per hpf (0-3); Squamous Epithelial Cell,Urine Moderate per lpf (None-Few)
[2019-06-16 12:11] LABS: Basophils % 0.2 %; Eosinophils # 0.2 K/mcL (0.0-0.6); Eosinophils % 2.3 %; Hemoglobin 7.2 g/dL (12.9-16.9); Immature Granulocytes % 2.9 % (0-4); Lymphocytes # 1.6 K/mcL (0.6-4.6); Lymphocytes % 17.4 %; Mean Corpuscular HGB Conc 31.3 g/dL (31.6-35.5); Mean Corpuscular Hemoglobin 30.6 pg (28.0-33.3); Mean Corpuscular Volume 97.9 fL (83.0-100.0); Mean Platelet Volume 10.1 fL (9.4-12.4); Monocytes # 0.9 K/mcL (0.0-1.3); Monocytes % 9.7 %; Nucleated Red Blood Cells 0.6 /100 WBC (0); Platelet Count 244 K/mcL (140-400); Red Blood Count 2.35 M/mcL (4.19-5.50); Red Cell Distribution Width 15.9 % (11.5-14.5); Segmented Neutrophils % 67.5 %; White Blood Count 8.9 K/mcL (4.3-11.1)
--- NOTE | 2019-06-16 12:58 | Internal Med Progress Note ---
Hospitalist Progress Note - Encounter Date of Encounter: 06/16/19 Time of Encounter: 12:56 - Subjective Interval History: I have seen and evaluated the patient at bedside. patient reported feeling better today still reporting abdominal discomfort. Per nurse patient had a BM of loose dark stool today. Denies chest pain, shortness of breath. - Exam Vitals: Temp Pulse Resp BP Pulse Ox 98.5 F 79 18 111/84 98 06/16/19 11:50 06/16/19 11:52 06/16/19 11:50 06/16/19 11:50 06/16/19 11:50 Exam: Vitals: Reviewed General: Alert and oriented x4. In mild distress due to abdominal pain Cardiovascular: RRR, normal S1 & S2, no rubs, murmurs or gallops. Lungs: CTA b/l, no wheezes or crackles. Abdomen: Soft, mild generalized tenderness to superficial palpation, no rigidity or guarding. PEG tube clean, no signs of infection. Extremities: No edema Neurological: No focal neurological abnormalities. Rest of the physical exam is non contributory - Assessment and Plan (1) GI bleed Current Visit: Yes Status: Acute Assessment and Plan: per nurse patient had a BM of dark stool. Failed EGD due to inability to intubate the Esoph. Plan scheduled for colonoscopy tomorrow keep npo lispro q6hr sliding scale will transfuse 1 more unit of PRBCs re-check cbc 1 hour post transfusion (2) Anemia Current Visit: Yes Status: Acute Assessment and Plan: plan of care as above. (3) Pancreatic mass Current Visit: Yes Status: Acute Assessment and Plan: GI consulted for further evaluation. recommendations appreciated. (4) Endocarditis Current Visit: Yes Status: Suspected Assessment and Plan: patient being managed for suspected endocarditis. c/w ceftriaxone 2gm/IV daily. ID consulted. (5) CAD (coronary artery disease) Current Visit: Yes Status: Chronic Assessment and Plan: Hold antiplatelet medication due to GI bleed. (6) COPD (chronic obstructive pulmonary disease) Current Visit: No Status: Chronic Assessment and Plan: patient not on acute exacerbation. chest is clear to auscultation b/l. Plan c/w bronchodilators Q4RT PRN and symbicort. incentive spirometry (7) Hypothyroid Current Visit: Yes Status: Chronic Assessment and Plan: Levothyroxine 25mcg/po daily. (8) HTN (hypertension) Current Visit: No Status: Chronic Assessment and Plan: BP is well controlled on metoprolol 100mg/PO daily. (9) Elevated lactic acid level Current Visit: Yes Status: Resolved (10) Dehydration Current Visit: Yes Status: Resolved (11) Hypotension Current Visit: Yes Status: Resolved DVT Prophylaxis: Intermittent pneumatic compression for dvt prophylaxis no chemical dvt prophylaxis due to GI bleed. - Summary of Assessment and Plan Summary of Assessment and Plan: Patient to remain in the hospital scheduled for colonoscopy, receiving blood transfusion. - Time Spent with Patient Total time spent is greater than 50% in coordination of care (as documented) at patient's floor/unit and/or counseling patient: Greater than 35 minutes (45) Plan of Care Discussed with: patient (her daughter.) Internal Medicine: Result - Labs CBC & Chem 7: 06/16/19 11:50 06/16/19 00:33 Labs: Short CBC 06/15/19 06/15/19 06/16/19 Range/Units 19:04 22:12 00:33 WBC 13.9 H 12.9 H 9.8 (4.3-11.1) K/mcL Hgb 7.9 L 7.1 L 6.1 L (12.9-16.9) g/dL Hct 24.7 L 22.0 L 19.6 L (37.5-50.1) % Plt Count 280 263 233 (140-400) K/mcL Neutrophils # 10.3 H 9.1 H 6.6 (1.6-8.9) K/mcL 06/16/19 Range/Units 11:50 WBC 8.9 (4.3-11.1) K/mcL Hgb 7.2 L (12.9-16.9) g/dL Hct 23.0 L (37.5-50.1) % Plt Count 244 (140-400) K/mcL Neutrophils # 6.0 (1.6-8.9) K/mcL BMP 06/15/19 06/16/19 11:31 00:33 Sodium 138 139 Potassium 4.5 3.9 Chloride 99 108 H Carbon Dioxide 26 28 BUN 33 H 24 H Creatinine 1.07 0.77 Glucose 233 H 126 H Calcium 8.0 L 7.1 L Liver Function 06/15/19 Range/Units 11:31 Total Bilirubin 0.4 (0.3-1.0) mg/dL AST 20 (13-39) Units/L ALT 44 (7-52) Units/L Alkaline Phosphatase 162 H (34-104) Units/L Albumin 2.8 L (3.5-5.7) g/dL Urine 06/16/19 Range/Units 10:56 Urine Color Yellow (Yellow) Urine Clarity Cloudy A (Clear) Urine pH 5.5 (5.0-8.0) pH Units Ur Specific [place] > 1.030 H (1.010-1.025) Urine Protein Negative (Neg-Trace) mg/dL Urine Glucose (UA) Normal (Normal) mg/dL - ABG Interpretation ABG results: PT/INR, D-dimer PT 14.3 Seconds (9.4-12.1) H 06/15/19 11:31 - Impressions Impressions Abdomen/Pelvis CT 06/15/19 15:30 IMPRESSION: 1. A hypoenhancing mass is present along the pancreatic head which measures 3.5 x 2.7 x 2.3 cm and is most concerning for a primary pancreatic neoplasm. Adjacent enlarged peripancreatic lymph nodes measure up to 3.0 x 2.0 cm and are concerning for metastatic disease. No liver lesions are visualized. 2. Centrilobular micronodules in the right lung base are most likely infectious in etiology. 3. Cholelithiasis without evidence of acute cholecystitis. D/ / 06/15/2019 15:48:27 Raúl Rosales MD / sergio Interpreting Provider: Raúl Rosales MD Consult Discharge Plan - Plan Referrals: Marquez Pina DO [Resident] - 06/22/19 10:00 am (1) GI bleed Qualifiers: GI bleed type/associated pathology: melena Qualified Code(s): K92.1 - Melena (2) Anemia Qualifiers: Anemia type: unspecified type Qualified Code(s): D64.9 - Anemia, unspecified (4) Endocarditis Qualifiers: Endocarditis type: unspecified Chronicity: subacute Qualified Code(s): I33.9 - Acute and subacute endocarditis, unspecified (5) CAD (coronary artery disease) Qualifiers: Coronary Disease-Associated Artery/Lesion type: unspecified vessel or lesion type [place] vs. transplanted heart: unspecified whether [place] or transplanted heart Associated angina: angina presence unspecified Qualified Code(s): I25.10 - Atherosclerotic heart disease of [place] coronary artery without angina pectoris (6) COPD (chronic obstructive pulmonary disease) Qualifiers: COPD type: emphysema Emphysema type: unspecified Qualified Code(s): J43.9 - Emphysema, unspecified (7) Hypothyroid Qualifiers: Hypothyroidism type: unspecified Qualified Code(s): E03.9 - Hypothyroidism, unspecified (8) HTN (hypertension) Qualifiers: Hypertension type: essential hypertension Qualified Code(s): I10 - Essential (primary) hypertension (11) Hypotension Qualifiers: Hypotension type: unspecified hypotension type Qualified Code(s): I95.9 - Hy potension, unspecified
[2019-06-16] MEDS: cefTRIAXone 2,000 MG in Water for inj. (sterile) 20 ML IVP SCH (15:02)
[2019-06-16] MEDS ORDERED: PEG/Electrolytes/Ascorbic Acid 1 EACH POWD.PACK PO ONE (16:00)
[2019-06-16 18:55] LABS: Basophils % 0.4 %; Eosinophils % 3.4 %; Hematocrit 25.4 % (37.5-50.1); Immature Granulocytes % 2.2 % (0-4); Lymphocytes % 18.2 %; Mean Corpuscular HGB Conc 31.5 g/dL (31.6-35.5); Mean Corpuscular Hemoglobin 30.1 pg (28.0-33.3); Mean Corpuscular Volume 95.5 fL (83.0-100.0); Mean Platelet Volume 9.8 fL (9.4-12.4); Monocytes % 9.3 %; Platelet Count 222 K/mcL (140-400); Red Blood Count 2.66 M/mcL (4.19-5.50); Red Cell Distribution Width 17.2 % (11.5-14.5); Segmented Neutrophils % 66.5 %; White Blood Count 8.5 K/mcL (4.3-11.1)
[2019-06-16 18:56] LABS: Eosinophils # 0.3 K/mcL (0.0-0.6); Lymphocytes # 1.6 K/mcL (0.6-4.6); Monocytes # 0.8 K/mcL (0.0-1.3); Neutrophils # 5.7 K/mcL (1.6-8.9); Nucleated Red Blood Cells 0.6 /100 WBC (0)
[2019-06-16] MEDS: clonazePAM 0.5 MG TABLET PO PRN (23:50)
[2019-06-17] MEDS: clonazePAM 0.5 MG TABLET PO PRN ×2 (01:39→20:58)
[2019-06-17 03:52] LABS: Basophils % 0.5 %; Eosinophils # 0.3 K/mcL (0.0-0.6); Hematocrit 29.2 % (37.5-50.1); Hemoglobin 9.2 g/dL (12.9-16.9); Immature Granulocytes % 2.9 % (0-4); Lymphocytes # 1.4 K/mcL (0.6-4.6); Lymphocytes % 17.8 %; Mean Corpuscular HGB Conc 31.5 g/dL (31.6-35.5); Mean Corpuscular Hemoglobin 29.8 pg (28.0-33.3); Mean Corpuscular Volume 94.5 fL (83.0-100.0); Mean Platelet Volume 9.4 fL (9.4-12.4); Monocytes # 0.8 K/mcL (0.0-1.3); Monocytes % 9.5 %; Neutrophils # 5.2 K/mcL (1.6-8.9); Platelet Count 242 K/mcL (140-400); Red Blood Count 3.09 M/mcL (4.19-5.50); Red Cell Distribution Width 17.2 % (11.5-14.5); Segmented Neutrophils % 65.3 %
[2019-06-17] MEDS: Insulin LISPRO 300 UNITS/3 ML VIAL SQ SCH ×3 (05:52→19:29)
[2019-06-17] MEDS: Levothyroxine 25 MCG TABLET PO SCH (05:55)
[2019-06-17] MEDS: Pantoprazole 40 MG VIAL IVP SCH ×2 (05:56→16:51)
[2019-06-17] MEDS: *HR* HYDROcodone/Acet 5/325 mg TABLET PO PRN ×2 (05:56→20:58)
[2019-06-17] MEDS: Metoprolol XL (24 HR) Succ 50 MG TAB.ER.24H PO SCH (08:42)
[2019-06-17] MEDS ORDERED: Simethicone 40 MG/0.6 ML MLS IR ONE (09:01)
[2019-06-17] MEDS ORDERED: *HR* FentaNYL (PF) 100 MCG/2 ML VIAL IVP ONE (09:01)
[2019-06-17] MEDS ORDERED: *HR* Midazolam HCl 5 MG/5 ML VIAL IVP ONE ×2 (09:01→09:04)
--- NOTE | 2019-06-17 09:02 | Pre-Sedation Evaluation ---
Pre-sedation evaluation - Pre-sedation checklist Date of procedure: 06/16/19 Procedure: Colonoscopy Recent Vitals: Last Vital Signs Temp 98.4 F 06/17/19 07:01 Pulse 98 06/17/19 08:22 Resp 16 06/17/19 07:01 BP 120/84 06/17/19 07:01 Pulse Ox 96 06/17/19 08:28 H&P (including ROS) documented in medical record: Yes Previous reaction to sedatives/anesthetics: No Dietary Status: NPO after Midnight Airway Assessment: Patient can open mouth completely, TMJ function normal Dentition: poor dentition Possible difficult airway: No ASA Classification *see protocol: CLASS III-Severe systemic disease
[2019-06-17] MEDS ORDERED: *HR* FentaNYL (PF) 100 MCG/2 ML VIAL ONE (09:03)
[2019-06-17] MEDS: Budesonide/Formoterol 160/4.5 1 PUFF INH IH SCH ×2 (09:40→20:19)
--- NOTE | 2019-06-17 09:40 | Event Note ---
Date of Encounter: 06/17/19 Time of Encounter: 09:38 Colonoscopy findings included thin blood throughout the colon, as well as in the terminal ileum. Consistent with again small bowel bleeding. Again flushed the G tube, and cannot get any blood return at that time. CAT scan has disclosed appears to be a pancreatic mass and lymph node tissue consistent with a concern for pancreatic carcinoma. My concern is possible ongoing GI bleeding throughout the day, but recommended CT and gram and/or transfer to [place] for further evaluation. I will make sure and discussed this with the daughter as well. Overall stomach prognosis remains quite guarded. Certainly the CAT scan report looks quite ominous. I shared my concerns for ongoing bleeding possibly, as well as possible transfer to the hospitalist. Dr. Bang
--- NOTE | 2019-06-17 09:42 | Internal Med Progress Note ---
Date of Encounter: 06/17/19 Time of Encounter: 11:00 - Assessment and plan (1) Anemia Current Visit: Yes Status: Acute Qualifiers: Anemia type: unspecified type Qualified Code(s): D64.9 - Anemia, uns pecified (2) Sleep apnea Current Visit: Yes Status: Chronic Assessment and plan: Continues I think jessica small, amount of GI bleeding, from small bowel,has received 4 units of blood at this time. This is consistent with blood loss anemia. Qualifiers: Sleep apnea type: unspecified type Qualified Code(s): G47.30 - Sleep apnea, unspecified (3) Hypothyroid Current Visit: Yes Status: Chronic Qualifiers: Hypothyroidism type: unspecified Qualified Code(s): E03.9 - Hypothyroidism, unspecified (4) CAD (coronary artery disease) Current Visit: Yes Status: Chronic Qualifiers: Coronary Disease-Associated Artery/Lesion type: unspecified vessel or lesion type [place] vs. transplanted heart: unspecified whether [place] or transplanted heart Associated angina: angina presence unspecified Qualified Code(s): I25.10 - Atherosclerotic heart disease of [place] coronary artery without angina pectoris (5) HTN (hypertension) Current Visit: No Status: Chronic Qualifiers: Hypertension type: essential hypertension Qualified Code(s): I10 - Essential (primary) hypertension (6) COPD (chronic obstructive pulmonary disease) Current Visit: No Status: Chronic Qualifiers: COPD type: emphysema Emphysema type: unspecified Qualified Code(s): J43.9 - Emphysema, unspecified (7) History of cardiac arrest Current Visit: Yes Status: Chronic (8) Pancreatic mass Current Visit: Yes Status: Acute Assessment and plan: This certainly could be the source of GI bleeding, certainly looks somewhat ominous on the CAT scan. Concerning for carcinoma. - Constitutional Vitals: Temp Pulse Resp BP Pulse Ox 98.4 F 86 16 120/80 100 06/17/19 07:01 06/17/19 09:27 06/17/19 09:27 06/17/19 09:27 06/17/19 09:27 General appearance: Present: disheveled, A&O X 3, no acute distress, obese, answers questions appropriately Internal Medicine: Result - Labs CBC & Chem 7: 06/18/19 12:00 06/18/19 07:30 Labs: Short CBC 06/16/19 06/16/1919 Range/Units 11:50 18:35 03:40 WBC 8.9 8.5 8.0 (4.3-11.1) K/mcL Hgb 7.2 L 8.0 L 9.2 L (12.9-16.9) g/dL Hct 23.0 L 25.4 L 29.2 L (37.5-50.1) % Plt Count 244 222 242 (140-400) K/mcL Neutrophils # 6.0 5.7 5.2 (1.6-8.9) K/mcL Urine 06/16/19 Range/Units 10:56 Urine Color Yellow (Yellow) Urine Clarity Cloudy A (Clear) Urine pH 5.5 (5.0-8.0) pH Units Ur Specific [place] > 1.030 H (1.010-1.025) Urine Protein Negative (Neg-Trace) mg/dL Urine Glucose (UA) Normal (Normal) mg/dL - ABG Interpretation ABG results: PT/INR, D-dimer PT 14.3 Seconds (9.4-12.1) H 06/15/19 11:31 Consult Discharge Plan - Plan Referrals: Marquez Pina DO [Resident] - 06/22/19 10:00 am
--- NOTE | 2019-06-17 10:08 | Discharge Summary ---
Orders not resulted at time of discharge: Pending orders 06/15/19 11:31 Culture,Blood [BC] Stat 06/16/19 00:33 Cancer Antigen-GI (CA 19-9) AM 0400 06/17/19 09:25 Surgical Pathology [PTH] Routine Date of Encounter: 06/17/19 Time of Encounter: 10:05 - Discharge Diagnosis (1) GI bleed Priority: Primary Status: Acute Qualifiers: GI bleed type/associated pathology: melena Qualified Code(s): K92.1 - Melena (2) Anemia Priority: Primary Status: Acute Qualifiers: Anemia type: unspecified type Qualified Code(s): D64.9 - Anemia, unspecified (3) Sleep apnea Priority: Secondary Status: Acute Qualifiers: Sleep apnea type: unspecified type Qualified Code(s): G47.30 - Sleep apnea, unspecified (4) Hypothyroid Priority: Secondary Status: Chronic Qualifiers: Hypothyroidism type: unspecified Qualified Code(s): E03.9 - Hypothyroidism, unspecified (5) CAD (coronary artery disease) Priority: Secondary Status: Chronic Qualifiers: Coronary Disease-Associated Artery/Lesion type: unspecified vessel or lesion type [place] vs. transplanted heart: unspecified whether [place] or transplanted heart Associated angina: angina presence unspecified Qualified Code(s): I25.10 - Atherosclerotic heart disease of [place] coronary artery without angina pectoris (6) HTN (hypertension) Priority: Secondary Status: Chronic Qualifiers: Hypertension type: essential hypertension Qualified Code(s): I10 - Essential (primary) hypertension (7) COPD (chronic obstructive pulmonary disease) Priority: Secondary Status: Chronic Qualifiers: COPD type: emphysema Emphysema type: unspecified Qualified Code(s): J43.9 - Emphysema, unspecified (8) History of cardiac arrest Priority: Secondary Status: Acute (9) Pancreatic mass Priority: Secondary Status: Acute Hospital course: Mr. Gale is a 63 year old male PMH of recent cardiac arrest, hypertension, hyperlipidemia, COPD, CAD post [place]. Patient was brought to the hospital from home due to cola colored emesis and dark stool. Information provided by the patient's daughter at bedside and the patient . As per patient's daughter patient had a prolonged hospitalization at the [facility] for about a month, from where he was discharged about a week ago. She reported patient was admitted due to a cardiopulmonary arrest, requiring vent support, was found to have pneumonia, strep viridans and coag negative staph bacteremia, for which the patient was treated for possible endocarditis based on Ni's criteria, TTE showed no vegetation, but they could not do a DARRELL due to epiglottis edema. Reported during that admission patient also had multiple episodes of aspiration which let to respiratory failure requiring re- intubation. He failed a swallow evaluation and due to the concern and high risk of aspiration a PEG tube was placed about week ago today. He was discharged from the hospital on Ceftriaxone 2gm/IV daily to complete 6 weeks of treatment for possible endocarditis. Per patient's daughter they returned home to [place] and the patient was doing fairly well, but for the past couple of days he has been getting progressively weaker, last night he had multiple episodes cola colored emesis and has been h aving dark loose stool. Also reported shortness of breath and light headedness, reported he felt like if he stood up he would fall. Patient also reported generalized abdominal pain. denies chest pain, or Hx of PUD. In the ED patient was found to be hypotensive, tachycardic, and had large BM of dark stool. Hospitalist called for management and coordination of care. During the hospitalization patient was transfused 4 units of PRBCs. Attempted EGD: 1. Unable to intubate the esophagus, tried sitting the patient up in bed, tried a bronchoscope, still not able to see any sort of esophageal lumen. After the procedure, attempted to flush the G-tube without difficulty. Did not return any blood or coffee-ground material. Colonoscopy: Blood in the entire examined colon. blood in the terminal ileum. After the colonoscopy GI recommended the patient to be transferred to a higher level of care as patient would benefit from IR evaluation with possible embolisation. CT/CT abd pelvis w iv no oral IMPRESSION: 1. A hypoenhancing mass is present along the pancreatic head which measures 3.5 x 2.7 x 2.3 cm and is most concerning for a primary pancreatic neoplasm. Adjacent enlarged peripancreatic lymph nodes measure up to 3.0 x 2.0 cm and are concerning for metastatic disease. No liver lesions are visualized. 2. Centrilobular micronodules in the right lung base are most likely infectious in etiology. 3. Cholelithiasis without evidence of acute cholecystitis. - Time Spent with Patient Total time spent providing and/or coordinating discharge services: Time spent: Greater than 30 minutes (35) - Discharge Medications Prescriptions: Continued Albuterol Sulfate [Proventil Inhaler] 1 puff IH Q6H PRN PRN Reason: Wheezing Nitroglycerin [Nitrostat] 0.4 mg SL Q5MIN PRN PRN Reason: Chest Pain Pantoprazole Sodium [Protonix] 40 mg PO DAILY Levothyroxine [Synthroid] 25 mcg PO QAM Paroxetine [Paxil] 20 mg PO DAILY Atorvastatin Calcium [Lipitor] 20 mg PO DAILY Cyclobenzaprine HCl 10 mg PO TID PRN PRN Reason: Muscle Spasm Aspirin [Lo-Dose Aspirin EC] 81 mg PO DAILY Budesonide/Formoterol 160/4.5 [Symbicort 160/4.5] 1 puff IH BIDR Metoprolol Tartrate 50 mg PO BID Oxycodone HCl 5 mg PO Q6H PRN PRN Reason: Pain traZODone [TraZODone] 50 mg PO HS Home Medications: Albuterol Sulfate [Proventil Inhaler] 1 puff IH Q6H PRN 09/10/18 [History] Atorvastatin Calcium [Lipitor] 20 mg PO DAILY 09/10/18 [History] Cyclobenzaprine HCl 10 mg PO TID PRN 09/10/18 [History] Levothyroxine [Synthroid] 25 mcg PO QAM 09/10/18 [History] Nitroglycerin [Nitrostat] 0.4 mg SL Q5MIN PRN 09/10/18 [History] Pantoprazole Sodium [Protonix] 40 mg PO DAILY 09/10/18 [History] Paroxetine [Paxil] 20 mg PO DAILY 09/10/18 [History] Aspirin [Lo-Dose Aspirin EC] 81 mg PO DAILY 06/15/19 [History] Budesonide/Formoterol 160/4.5 [Symbicort 160/4.5] 1 puff IH BIDR 06/15/19 [History] Metoprolol Tartrate 50 mg PO BID 06/15/19 [History] Oxycodone HCl 5 mg PO Q6H PRN 06/15/19 [History] traZODone [TraZODone] 50 mg PO HS 06/15/19 [History] Allergies/Adverse Reactions: Allergy/AdvReac Type Severity Reaction Status Date / Time rabbit dander Allergy Difficulty Verified 06/15/19 11:26 Breathing shellfish derived Allergy Swelling Verified 06/15/19 11:26 of Lip/Tongue/Throat Date of admission: 06/15/19 14:21 Primary care physician: Shaye Bradford Consults: 06/15/19 12:07 Consult to Gastroenterology [CONS] Stat Consulting Provider: Sanjeev Rehman Reason for Consult: Active GIB with Hg <8 Time Notified: 12:08 Call Completed: Yes 06/15/19 15:10 Consult to Infectious Diseases [CONS] Routine Consulting Provider: Infectious Disease Rhonda Reason for Consult: being treated for suspected endocarditis. Call Completed: Yes 06/15/19 19:42 Consult to Nutrition [CONS] Routine Comment: Home Jevity boluses and 1 liter FW daily Consulting Provider: NUTRITION Reason for Dietary Consult: Tube Feed Start & Manage Consult to [place] [CONS] Routine Reason for SW Consult: Recent travel to [place] to live and gtube placement with IV ATB orders and PICC line - Constitutional Vitals: Temp Pulse Resp BP Pulse Ox 98.4 F 86 16 120/80 100 06/17/19 07:01 06/17/19 09:27 06/17/19 09:27 06/17/19 09:27 06/17/19 09:27 General appearance: Present: disheveled, A&O X 3, no acute distress, obese, answers questions appropriately Exam: Vitals: Reviewed General: Alert and oriented x4. In mild distress due to abdominal pain Cardiovascular: RRR, normal S1 & S2, no rubs, murmurs or gallops. Lungs: CTA b/l, no wheezes or crackles. Abdomen: Soft, mild generalized tenderness to superficial palpation, no rigidity or guarding. PEG tube clean, no signs of infection. Extremities: No edema Neurological: No focal neurological abnormalities. Rest of the physical exam is non contributory - Patient Status Disposition: Transfer Critical Access Hosp Condition: Fair Functional capacity at discharge: uses cane/walker Overall status at discharge: patient is not back to baseline - Discharge Instructions Follow Up With: Marquez Pina DO [Resident] - 06/22/19 10:00 am
--- NOTE | 2019-06-17 10:47 | Event Note ---
Date of Encounter: 06/17/19 Time of Encounter: 10:44 After talking to IR informatics consultant and discussing patient presentation and current findings on colonoscopy. the interventional radiologist recommended NM bleeding study, if the study is positive he will come to the hospital for possible embolization. He recommended to cancel the transfer. Dr. earl informed about discussion with informatics consultant Interventional radiologist. He agrees with plan of care. will continue monitoring H&H Q6HR and transfusing per protocol patient clinically stable.
[2019-06-17 11:12] LABS: Basophils % 0.3 %; Eosinophils # 0.3 K/mcL (0.0-0.6); Eosinophils % 4.6 %; Hematocrit 27.3 % (37.5-50.1); Hemoglobin 8.7 g/dL (12.9-16.9); Immature Granulocytes % 1.9 % (0-4); Lymphocytes # 0.9 K/mcL (0.6-4.6); Lymphocytes % 12.9 %; Mean Corpuscular HGB Conc 31.9 g/dL (31.6-35.5); Mean Corpuscular Hemoglobin 29.8 pg (28.0-33.3); Mean Corpuscular Volume 93.5 fL (83.0-100.0); Mean Platelet Volume 9.3 fL (9.4-12.4); Monocytes # 0.7 K/mcL (0.0-1.3); Neutrophils # 5.1 K/mcL (1.6-8.9); Nucleated Red Blood Cells 0.4 /100 WBC (0); Platelet Count 242 K/mcL (140-400); Red Blood Count 2.92 M/mcL (4.19-5.50); Red Cell Distribution Width 17.2 % (11.5-14.5); Segmented Neutrophils % 71.3 %; White Blood Count 7.2 K/mcL (4.3-11.1)
[2019-06-17 11:20] LABS: INR 1.3; Prothrombin Time 14.8 Seconds (9.4-12.1)
[2019-06-17] MEDS ORDERED: D5% in 0.9% NACL 1,000 ML IVC ONE (14:06)
[2019-06-17] MEDS: cefTRIAXone 2,000 MG in Water for inj. (sterile) 20 ML IVP SCH (14:15)
[2019-06-17] MEDS: D5% in 0.9% NACL 1,000 ML IVC SCH (14:16)
[2019-06-17 17:29] LABS: Hematocrit 29.4 % (37.5-50.1); Hemoglobin 9.4 g/dL (12.9-16.9)
[2019-06-17 23:33] LABS: Hematocrit 29.1 % (37.5-50.1); Hemoglobin 9.4 g/dL (12.9-16.9)
[2019-06-18] MEDS: Insulin LISPRO 300 UNITS/3 ML VIAL SQ SCH ×4 (01:19→16:39)
[2019-06-18] MEDS: traMADol 50 MG TABLET GTUBE PRN ×2 (01:24→20:04)
[2019-06-18] MEDS: Pantoprazole 40 MG VIAL IVP SCH (05:33)
[2019-06-18] MEDS: *HR* HYDROcodone/Acet 5/325 mg TABLET GTUBE PRN ×2 (05:38→16:35)
[2019-06-18] MEDS: Budesonide/Formoterol 160/4.5 1 PUFF INH IH SCH ×2 (07:48→19:57)
[2019-06-18 08:05] LABS: Basophils % 0.3 %; Eosinophils # 0.4 K/mcL (0.0-0.6); Eosinophils % 6.3 %; Hematocrit 27.4 % (37.5-50.1); Hemoglobin 8.8 g/dL (12.9-16.9); Immature Granulocytes % 1.9 % (0-4); Lymphocytes # 1.1 K/mcL (0.6-4.6); Lymphocytes % 17.6 %; Mean Corpuscular HGB Conc 32.1 g/dL (31.6-35.5); Mean Corpuscular Hemoglobin 30.2 pg (28.0-33.3); Mean Corpuscular Volume 94.2 fL (83.0-100.0); Mean Platelet Volume 9.5 fL (9.4-12.4); Monocytes # 0.6 K/mcL (0.0-1.3); Monocytes % 9.7 %; Neutrophils # 4.1 K/mcL (1.6-8.9); Platelet Count 258 K/mcL (140-400); Red Blood Count 2.91 M/mcL (4.19-5.50); Red Cell Distribution Width 17.6 % (11.5-14.5); Segmented Neutrophils % 64.2 %; White Blood Count 6.4 K/mcL (4.3-11.1)
[2019-06-18 08:24] LABS: BUN/Creatinine Ratio 21 (6-26); Blood Urea Nitrogen 12 mg/dL (8-23); Calcium 7.4 mg/dL (8.6-10.3); Carbon Dioxide 28 mEq/L (23-29); Chloride 104 mEq/L (98-107); Glucose 95 mg/dL (70-105); Magnesium 1.8 mg/dL (1.6-2.6); Osmolality,Calculated 280 (280-300); Phosphorous 2.2 mg/dL (2.7-4.5); Potassium 3.3 mEq/L (3.5-5.1); Sodium 135 mEq/L (136-145); eGFR For African Americans > 60 (> 60); eGFR For Non-African Americans > 60 (> 60)
--- NOTE | 2019-06-18 10:39 | Infectious Disease Consult ---
Infectious Disease-Consult - Encounter Date/Time Date of Encounter: 06/18/19 Time of Encounter: 10:33 - Data of Consult Patient: new to practice Reason for consult: "being treated for suspected endocarditis." Consult date: 06/18/19 Requesting Physician: Anthony Smith MD Primary Care Provider: Shaye Rojas [facility] HPI: Mr. Gale is a 63-year-old male with past medical history of COPD, hyperlipid emia, hypertension, AL, cardiac arrest, respiratory failure requiring chronic tracheostomy, and suspected endocarditis currently on IV antibiotics. Patient was admitted to the hospital 06/15/19 for GI bleed. Her consult on 06/18/19 for further recommendations for suspected endocarditis. Briefly, the patient is a 63-year-old male with past medical history as stated above. The patient presented to the emergency department with complaints of dark tarry stools and hematemesis. Apparently, the patient's about a month at [facility] after he went into cardiac arrest. He was suc cessfully resuscitated and was extubated, but required reintubation due to multiple aspiration events. He was also diagnosed with strep bacteremia and coag-negative staph bacteremia. His transthoracic echo was negative. DARRELL was not able to be completed due to subglottic edema. Based on Garland criteria, they opted to treat him for 6 weeks with IV Rocephin 2G Q12H. He had a G-tube placed 06/07/19 and was discharged from the hospital 06/12/19. He was then transported by car per his daughter to [place] where he has been staying with her. Since he had placement of his G-tube, he has had dark tarry stools which prompted his emergency room visit. Upon arrival, he was afebrile. He was tachycardic and hypotensive. He did have leukocytosis. Lactic acid was elevated at 5.8. Renal function was normal. LFTs were normal. Chest x-ray showed cardiomegaly with an elevated right hemidiaphragm. CT of the abdomen and pelvis showed a hypoenhancing mass present on the pancreatic head which measures 3.5 x 2.7 x 2.3 cm and is most concerning for primary pancreatic neoplasm. 7 enlarged peripancreatic lymph nodes are concerning for metastatic disease. Blood cultures were obtained 1 set and are no growth to date. Procalcitonin on admission was 0.19. He was transfused with 2 units of PRBCs and was admitted to the hospital for further evaluation and treatment. Shortly after admission, GI was consulted and attempted to perform an EGD which was unsuccessful due to inability to intubate the esophagus. Urinalysis was collected, but appeared contaminated. He then underwent a colonoscopy that showed melanotic debris throughout the colon. He then underwent a bleeding scan that was negative. Speech therapy was consulted who did not notice any aspiration with thin liquids and regular textures. He is scheduled to undergo a modified barium swallow later today. ENT has been consulted due to GI's inability to intubate the esophagus and previous failed DARRELL. Currently, he is on IV Rocephin. We have been asked to evaluate and make further recommendations. During my exam today, the patient states that overall he feels okay. He denies fevers, chills, or rigors. Denies chest pain, shortness of breath, or cough. Reports some intermittent nausea and RUQ abdominal pain as well as intermittent pain at the site of his PEG tube. States his appetite has been okay. Denies dysphagia or odynophagia. Denies oral thrush or skin rashes. States he had some hematemesis and dark tarry stools prior to admission that have resolved. He denies urinary complaints. The patient has been staying home with family. Denies tobacco, alcohol, or illicit drug use. He is retired/disabled from a back injury. Has been in [place] and [place] recently. - ROS Review of Systems: All systems reviewed and no additional remarkable complaints except as stated. - Results CBC & Chem 7: 06/19/19 10:09 06/19/19 10:09 - Exam Vitals: Temp Pulse Resp BP Pulse Ox 98.4 F 88 18 127/87 100 06/18/19 07:27 06/18/19 07:27 06/18/19 07:49 06/18/19 07:27 06/18/19 07:49 Exam: Head: Atraumatic, normal inspection, normocephalic. Eye: EOMI, PERRLA, no scleral icterus noted. No subconjunctival hemorrhage noted. ENT: Mucous membranes moist. No odontogenic infection noted. Neck: Normal inspection, no meningismus. Respiratory: Clear to auscultation. No rales, respiratory distress, rhonchi, or wheezes noted. Cardiovascular: Regular rate and rhythm, S1 and S2 audible. No murmurs, rubs, or gallops. GI: Soft, obese, normal bowel sounds. Tenderness noted to the RUQ, epigastric region, and PEG tube site. PEG tube noted to the LUQ, currently clamped. Extremities: No joint swelling, pedal edema, or tenderness noted. Back: Normal inspection. No vertebral tenderness noted. Neurological: Alert, oriented 3, no focal deficits. Psychiatric: normal affect, normal mood. Skin: Dry, intact, warm. Normal color. No rashes. No subconjunctival hemorrhage noted. Albuterol Sulfate [Proventil Inhaler] 1 puff IH Q6H PRN 09/10/18 [History] Atorvastatin Calcium [Lipitor] 20 mg PO DAILY 09/10/18 [History] Cyclobenzaprine HCl 10 mg PO TID PRN 09/10/18 [History] Levothyroxine [Synthroid] 25 mcg PO QAM 09/10/18 [History] Nitroglycerin [Nitrostat] 0.4 mg SL Q5MIN PRN 09/10/18 [History] Pantoprazole Sodium [Protonix] 40 mg PO DAILY 09/10/18 [History] Paroxetine [Paxil] 20 mg PO DAILY 09/10/18 [History] Aspirin [Lo-Dose Aspirin EC] 81 mg PO DAILY 06/15/19 [History] Budesonide/Formoterol 160/4.5 [Symbicort 160/4.5] 1 puff IH BIDR 06/15/19 [History] Metoprolol Tartrate 50 mg PO BID 06/15/19 [History] Oxycodone HCl 5 mg PO Q6H PRN 06/15/19 [History] traZODone [TraZODone] 50 mg PO HS 06/15/19 [History] Allergy/AdvReac Type Severity Reaction Status Date / Time rabbit dander Allergy Difficulty Verified 06/15/19 11:26 Breathing shellfish derived Allergy Swelling Verified 06/15/19 11:26 of Lip/Tongue/Throat - Assessment and Plan (1) GI bleed Current Visit: Yes Status: Resolved Hgb 7 on admission with dark tarry stools. GI consulted. EGD unsuccessful due to inability to intubate the esophagus. Status post colonoscopy that showed melena throughout the colon. Nuc med bleeding scan negative. Further workup and treatment per the primary and GI teams. Qualifiers: GI bleed type/associated pathology: melena Qualified Code(s): K92.1 - Melena SNOMED Code(s): 95901197 (2) Weakness Current Visit: No Status: Acute Likely multifactorial: chronic/prolonged illness, anemia/GIB bleed. PT/OT. SNOMED Code(s): 46362286 (3) Anemia Current Visit: Yes Status: Acute Secondary to GIB. Transfusion parameters per the primary team. Qualifiers: Anemia type: unspecified type Qualified Code(s): D64.9 - Anemia, unspecified SNOMED Code(s): 560233074 (4) Hypotension Current Visit: Yes Status: Resolved Likely secondary to hypovolemia. Resolved with IVF and blood products. Qualifiers: Hypotension type: unspecified hypotension type Qualified Code(s): I95.9 - Hypotension, unspecified SNOMED Code(s): 61943821 (5) Elevated lactic acid level Current Visit: Yes Status: Resolved SNOMED Code(s): 4173898 (6) Pancreatic mass Current Visit: Yes Status: Acute Concerning for primary neoplasm. Further workup per the GI team. SNOMED Code(s): 107662112 (7) Endocarditis Current Visit: Yes Status: Suspected Diagnosed in [place]. Exact details unclear, but apparently had S. viridans (2/4) and CONS bacteremia (2/4). TTE negative, but DARRELL not completed due to subglottic edema. Planned to treat with IV Rocephin x 6 weeks based on Ni's criteria. Currently on IV Rocephin. Planned to treat through 07/02/19. Qualifiers: Endocarditis type: unspecified Chronicity: subacute Qualified Code(s): I33.9 - Acute and subacute endocarditis, unspecified SNOMED Code(s): 25783838 (8) CAD (coronary artery disease) Current Visit: Yes Status: Chronic Qualifiers: Coronary Disease-Associated Artery/Lesion type: unspecified vessel or lesion type [place] vs. transplanted heart: unspecified whether [place] or transplanted heart Associated angina: angina presence unspecified Qualified Code(s): I25.10 - Atherosclerotic heart disease of [place] coronary artery without angina pectoris SNOMED Code(s): 46877010 (9) Hypothyroid Current Visit: Yes Status: Chronic Qualifiers: Hypothyroidism type: unspecified Qualified Code(s): E03.9 - Hypothyroidism, unspecified SNOMED Code(s): 88182632 (10) History of cardiac arrest Current Visit: Yes Status: Chronic SNOMED Code(s): 801083149 (11) COPD (chronic obstructive pulmonary disease) Current Visit: No Status: Chronic Qualifiers: COPD type: emphysema Emphysema type: unspecified Qualified Code(s): J43.9 - Emphysema, unspecified SNOMED Code(s): 26233858 (12) HTN (hypertension) Current Visit: No Status: Chronic Qualifiers: Hypertension type: essential hypertension Qualified Code(s): I10 - Essential (primary) hypertension SNOMED Code(s): 12804214 (13) Dysphagia Current Visit: Yes Status: Acute Status post g-tube placement 06/07/19. BUTADIENE CONVERTOR OPERATOR consulted. MBS pending completion later today. Qualifiers: Dysphagia type: unspecified Qualified Code(s): R13.10 - Dysphagia, unspecified SNOMED Code(s): 59035609, 686705690 - Recommendations Recommendations: GIB and pancreatic mass workup/treatment per the primary and GI teams. Dysphagia per BUTADIENE CONVERTOR OPERATOR and ENT. Continue Rocephin 2 grams IV daily. Duration of treatment depends on the clinical picture, but likely through 07/02/19. Monitor renal function and dose-adjust antibiotics. We will continue to follow peripherally. Past Med Surg Social Fam HX - Past Medical History Attestation: Yes The following information was validated with the patient. Source: old records reviewed, nursing notes reviewed Medical history: COPD, coronary artery disease, diabetes, hyperlipidemia, hypertension, myocardial infarction, other (Obstructive sleep apnea with O2 de pendence, hypothyroidism) Additional medical history: coded 1 month ago Psychiatric history: no psych history - Past Surgical History Additional surgical history: Heart cath. g tube - Social History Smoking Status: Never smoker Smokeless Tobacco Status: No Alcohol use: none Drug use: none Occupational status: retired, disabled Current living situation: Home, With Family Activity Level: Uses cane/walker Recent Out of Country Travel Within the Last 8 Weeks: No Exposure or Possible Exposure to Illness During Travel: No - Family History Father Living Status: Hx Family Cardiac Disorders: Yes (CABG at 22 years old) Hx Family Cancer: Yes (adnocarcinoma) Mother Living Status: Still Living Hx Family Cardiac Disorders: Yes (AL x 3) Hx Family Neurologic Disorders: Yes (alzheimers) Consult Discharge Plan - Plan Referrals: Vaishali Stewart CNP [Advanced Practice Nurse] - 07/03/19 3:00 pm Marquez Pina DO [Resident] - 06/22/19 10:00 am - Attending Attestation I have personally performed a face to face evaluation on this patient. I have reviewed and agree with the care plan. This is an addendum to original report dictated by Vaishali Stewart CNP. Please refer to Vaishali's note for full detail. Agree with above history of present illness, review of system and physical exam findings. Assessment and plan: GI bleed Recent bacteremia with Streptococcus viridans. TTE negative. DARRELL on done due to technical issues patient had 2 major Garland and one minor Garland so was started on IV antibiotics in [place] Lactic acidosis Pancreatic mass Recommendations GIB and pancreatic mass workup/treatment per the primary and GI teams. Dysphagia per BUTADIENE CONVERTOR OPERATOR and ENT. Continue Rocephin 2 grams IV daily. Duration of treatment depends on the clinical picture, but likely through 07/02/19. Monitor renal function and dose-adjust antibiotics. We will continue to follow peripherally.
--- NOTE | 2019-06-18 11:50 | Gastroenterology Consult Note ---
<John Paul Hernandez - Last Filed: 06/18/19 17:44> Date of Encounter: 06/18/19 Time of Encounter: 11:54 - Assessment and plan (1) Anemia Current Visit: Yes Status: Acute Assessment and plan: -Patient presented to the ER with a hemoglobin of 7.1. -He also had multiple episodes of coffee-ground emesis. -In the ED patient was found to be hypotensive, tachycardic and had large BM with dark stool -Nuclear medicine gastric bleeding study from not show any evidence for active GI bleed -Patient had a failed her EGD initially due to inability to intubate the esophagus. - He eventually had a repeat EGD on 06/18/19 and was found to have esophageal stricture which was dilated. Patient also had evidence of duodenal bleeding. -She is currently status post 4 units of packed red blood cells, most recent hemoglobin being 8.8 PLAN: - Trend H&H, and use packed red blood cells if necessary Qualifiers: Anemia type: unspecified type Qualified Code(s): D64.9 - Anemia, unspecified (2) GI bleed Current Visit: Yes Status: Resolved Assessment and plan: Plan as above Qualifiers: GI bleed type/associated pathology: melena Qualified Code(s): K92.1 - Melena (3) Pancreatic mass Current Visit: Yes Status: Acute Assessment and plan: - Patient had a CT of abdomen and pelvis with contrast which showed hypoenh ancing mass along the pancreatic head measuring 3.52.72.3 cm with concerns for primary pain. Neoplasm -He underwent EGD this morning but biopsy was unobtainable because of duodenal ulcer -It appears that the cancer might have metstasized because of evidence of enlarged lymph nodes -Patient might benefit from hospice care because of his comorbidities. - Time Spent With Patient Total time spent is greater than 50% in coordination of care (as documented) at patient's floor/unit and/or counseling patient: GI History of Present Illness - Data of Consult Requesting Physician: Anthony Smith MD - Consult Narrative History of present illness: Mr. Gale is a 63 year old male with past medical history of for cardiac arrest, hypertension, hyperlipidemia, COPD, CAD post VA who was brought to the hospital for coffee-ground emesis and dark stool. GI was consulted for a hypoenhancing mass like area in the pancreatic head. Mr. Gale is a 63-year-old male who was brought to the hospital due to the coffee ground emesis in the stool. He recently had a prolonged hospitalization at the [facility] for about a month from where he was discharged about a week ago after being treated for VA requiring intubation along with competitions by pneumonia. Patient was also treated for possible endocarditis based on Ni's criteria. On return to [place], patient was doing well but for the last couple days was endorsing generalized weakness and had multiple episodes of coffee ground emesis with dark loose stools. Initial workup in the ED showed that she was a hypotensive / patient's hemoglobin was 7.1, MCV: 95.7, WBc: 12.9, Neutrophils : 9.1. Patient responded to IV fluids and with the increased blood pressure . Patient also underwent a colonoscopy which showed a hematin in the entire colon. He also had a nuclear medicine gastric bleeding study did not show any evidence of active GI bleeding during aquisition. An EGD was attempted and it was difficult to intubate the esophagus. Patient had an abdominal CT contrast which showed a hypoenhancing mass along the pancreatic head measuring 3.5 x 2.7 x 2.3 cm with concerns for primary pancreatic neoplasm. Patient is s/p t total transfusion of 4 units of packed red blood cells Past Med Surg Social Fam HX - Past Medical History Medical history: COPD, coronary artery disease, diabetes, hyperlipidemia, hypertension, myocardial infarction, other (Obstructive sleep apnea with O2 dependence, hypothyroidism) Additional medical history: coded 1 month ago Psychiatric history: no psych history - Past Surgical History Additional surgical history: Heart cath. g tube - Social History Smoking Status: Never smoker Smokeless Tobacco Status: No Alcohol use: none Drug use: none - Family History Father Living Status: Hx Family Cardiac Disorders: Yes (CABG at 22 years old) Hx Family Cancer: Yes (adnocarcinoma) Mother Living Status: Still Living Hx Family Cardiac Disorders: Yes (VA x 3) Hx Family Neurologic Disorders: Yes (alzheimers) Review of Systems: 10 point review of systems is otherwise negative except as mentioned above - Constitutional Vitals: Temp Pulse Resp BP Pulse Ox 98.1 F 81 18 118/87 92 06/18/19 11:35 06/18/19 11:35 06/18/19 11:35 06/18/19 11:35 06/18/19 11:35 Exam: Gen.: Vitals noted. No acute distress. Alert, awake and oriented * [address], and time, well developed, well-nourished resting comfortably in bed. Pleasant. HEENT: oropharynx clear, Normocephalic, atraumatic, MMM Neck: supple, no JVD, no lymphadenopathy, no carotid bruit. Cardiac: RRR, no murmur, +S1/S2, No BLE edema, PMI non-displaced Pulmonary: CTA bilaterally, no wheezes, rales or rhonchi, equal chest expansion, unlabored breathing Abdomen: soft, nontender, BS noted, no guarding, undistended. No organomegaly, no pulsatile masses, Skin: warm and dry, no visible lesions. Feels warm, clammy, no rashes, no lesions, no erythema MSK: ROM not assessed. no joint swelling noted, gait not assessed while in bed. Non tender calf or clubbing, no cyanosis/clubbing/ or edema Neuro: A&O, moves all extremities, no focal deficits, sensation intact Results - Labs CBC & Chem 7: 06/18/19 12:00 06/18/19 07:30 Labs: Last Result 06/18/19 07:30 Calcium 7.4 L Entire Visit 06/16/19 06/18/19 00:33 07:30 Hgb 8.8 L Hct 27.4 L CA 19-9 Antigen 7 - ABG ABG results: PT/INR, D-dimer PT 14.8 Seconds (9.4-12.1) H 06/17/19 10:56 - Impressions Impressions GI Bleed Scan Nuclear Medicine 06/17/19 13:15 IMPRESSION: No evidence of active GI bleeding during acquisition. RECOMMENDATIONS: If the patient shows hemodynamic signs of an active bleed in the next 20 hours, additional images can be acquired. D/ / Paresh Day MD / Paresh Day MD Interpreting Provider: Paresh Day MD Consult Discharge Plan - Plan Referrals: Marquez Pina DO [Resident] - 06/22/19 10:00 am <Audelia Frey - Last Filed: 06/18/19 17:51> Date of Encounter: 06/18/19 Time of Encounter: 13:00 - Time Spent With Patient Total time spent is greater than 50% in coordination of care (as documented) at patient's floor/unit and/or counseling patient: GI History of Present Illness - Data of Consult Requesting Physician: Anthony Smith MD - Consult Narrative History of present illness: Mr. Gale is a 63 year old male - Constitutional Vitals: Temp Pulse Resp BP Pulse Ox 97.7 F 99 18 134/89 96 06/18/19 16:39 06/18/19 16:53 06/18/19 16:39 06/18/19 16:39 06/18/19 16:39 Results - Labs CBC & Chem 7: 06/18/19 12:00 06/18/19 07:30 Labs: Last Result 06/18/19 07:30 Calcium 7.4 L Entire Visit 06/16/19 06/18/19 06/18/19 00:33 07:30 12:00 Hgb 8.8 L 9.2 L Hct 27.4 L 28.8 L CA 19-9 Antigen 7 - ABG ABG results: PT/INR, D-dimer PT 14.8 Seconds (9.4-12.1) H 06/17/19 10:56 - Attending Attestation I examined this patient and my medical decision-making was reviewed with the Resident Physician. I agree with the documented findings, disposition and treatment plan as described except to the extent set forth below. Patient seen denies abdominal pain on examination: Abdomen is soft. Assessment: Patient with melena with anemia #2 pancreatic mass with possible local metastases. Recommendation: EGD EUS today
[2019-06-18 12:28] LABS: Hematocrit 28.8 % (37.5-50.1); Hemoglobin 9.2 g/dL (12.9-16.9)
[2019-06-18] MEDS ORDERED: Lidocaine -MPF 2% 2 ML VIAL ONE (12:30)
[2019-06-18] MEDS ORDERED: *HR* Propofol 200 MG/20 ML VIAL IVP ONE (12:30)
[2019-06-18] MEDS ORDERED: Ondansetron 4 MG/2 ML VIAL ONE (12:46)
[2019-06-18] MEDS ORDERED: *HR* FentaNYL (PF) 100 MCG/2 ML VIAL ONE (12:46)
[2019-06-18] MEDS ORDERED: *HR* Succinylcholine 200 MG/10 ML VIAL IVP ONE (12:46)
[2019-06-18] MEDS ORDERED: Dexamethasone 4 MG/ML VIAL ONE (12:46)
[2019-06-18] MEDS ORDERED: Lidocaine -MPF 4% 5 ML AMPUL ONE (12:47)
--- NOTE | 2019-06-18 13:34 | Anesthesia Evaluation PreOp ---
Date of Encounter: 06/18/19 Time of Encounter: 13:30 - Past History Planned Operation: EGD Cardiac History: VT, HTN, Hyperlipidemia, Other (CAD s/p Cardiac Arrest a month ago) Pulmonary History: COPD COMPUTER FORENSIC EXAMINER History: Denies Any Significant HX Other Medical History: Denies Any Significant HX Alcohol Use: none Drug use: none Medications and Allergies Albuterol Sulfate [Proventil Inhaler] 1 puff IH Q6H PRN 09/10/18 [History] Atorvastatin Calcium [Lipitor] 20 mg PO DAILY 09/10/18 [History] Cyclobenzaprine HCl 10 mg PO TID PRN 09/10/18 [History] Levothyroxine [Synthroid] 25 mcg PO QAM 09/10/18 [History] Nitroglycerin [Nitrostat] 0.4 mg SL Q5MIN PRN 09/10/18 [History] Pantoprazole Sodium [Protonix] 40 mg PO DAILY 09/10/18 [History] Paroxetine [Paxil] 20 mg PO DAILY 09/10/18 [History] Aspirin [Lo-Dose Aspirin EC] 81 mg PO DAILY 06/15/19 [History] Budesonide/Formoterol 160/4.5 [Symbicort 160/4.5] 1 puff IH BIDR 06/15/19 [History] Metoprolol Tartrate 50 mg PO BID 06/15/19 [History] Oxycodone HCl 5 mg PO Q6H PRN 06/15/19 [History] traZODone [TraZODone] 50 mg PO HS 06/15/19 [History] Allergy/AdvReac Type Severity Reaction Status Date / Time rabbit dander Allergy Difficulty Verified 06/15/19 11:26 Breathing shellfish derived Allergy Swelling Verified 06/15/19 11:26 of Lip/Tongue/Throat - Meds/Allergy Pre-op Review Medications Reviewed: Yes Allergies Reviewed: Yes Beta Blockers on Current Med List: Yes (Metoprolol today 09) Anesthesia Results - Labs 06/18/19 12:00 06/18/19 07:30 - Imaging EKG: report reviewed (SR PVC) Additional studies: ECHO EF 60% Anesthesia Exam Vital Signs/O2 Sat/Glucose, Most Current Temp Pulse Resp BP Pulse Ox 06/18/19 13:15 98.3 F 82 18 129/90 93 06/18/19 11:35 98.1 F 81 18 118/87 92 Height: 5'11 Weight: 208 lbs NPO (# of Hours): MN Pain Scale: 0 - HEENT Pupil (Motor): Pupils equal, EOMI Mallampati: III Teeth: Edentulous (no upper dentition) Oral Opening: Less than or equal to 3 - COMPUTER FORENSIC EXAMINER LOC: Oriented COMPUTER FORENSIC EXAMINER Motor: Normal RUE, Normal LUE, Normal RLE, Normal LLE, Normal Face COMPUTER FORENSIC EXAMINER Sensory: Normal: RUE, LUE, RLE, LLE, Face - Cardiac Rhythm: Regular Murmur: None JVD: No Carotid Bruit: No - Pulmonary Breath Sounds: bilateral Clear Respiratory Effort: Symmetrical Anesthesia Assess/Plan ASA Score: 4 (CAD COPD) Level of consciousness: Cooperative, Oriented Anesthetic Plan: General Monitoring Plan: Standard Monitors Recovery Plan: PACU (Discussed GA, agrees to proceed)
[2019-06-18] MEDS: Ringers Solution, Lactated 1,000 ML IVC SCH (13:58)
--- NOTE | 2019-06-18 13:58 | Internal Med Progress Note ---
Hospitalist Progress Note - Encounter Date of Encounter: 06/18/19 Time of Encounter: 13:56 - Subjective Interval History: I have seen and evaluated the patient at bedside. Patient reports feeling better today, reported having a maroon color BM today, denies chest pain, nausea or abdominal pain. - Exam Vitals: Temp Pulse Resp BP Pulse Ox 98.3 F 82 18 129/90 93 06/18/19 13:15 06/18/19 13:15 06/18/19 13:15 06/18/19 13:15 06/18/19 13:15 Exam: Vitals: Reviewed General: Alert and oriented x4. In no distress. Cardiovascular: RRR, normal S1 & S2, no rubs, murmurs or gallops. Lungs: CTA b/l, no wheezes or crackles. Abdomen: Soft, non-tender, no rigidity or guarding. PEG tube clean, no signs of infection. Extremities: No edema Neurological: No focal neurological abnormalities. Rest of the physical exam is non contributory - Assessment and Plan (1) Anemia Current Visit: Yes Status: Acute Assessment and Plan: acute blood lost anemia secondary to GI bleed. Nm scan: negative for bleeding. patient s/p 4 units of PRBCs transfused. Plan CBC Q6HR will transfuse per protocol c/w PPIs and anti-emetics GI has been consulted, recommendations appreciated (2) Dysphagia Current Visit: Yes Status: Acute Assessment and Plan: speech therapy consulted. MBS will be done following GI evaluation. Keep NPO pending final GI recommendations accu-checks Q6HRs, plus lispro low dose sliding scale (3) GI bleed Current Visit: Yes Status: Resolved Assessment and Plan: plan of care as per problem #1 (4) History of cardiac arrest Current Visit: Yes Status: Chronic (5) Pancreatic mass Current Visit: Yes Status: Acute Assessment and Plan: High suspicious of malignancy due to radiographic characteristic and lymph nodes involvement. GI consulted for further evaluation. recommendations appreciated. (6) Hypothyroid Current Visit: Yes Status: Chronic Assessment and Plan: c/w levothyroxine 25mcg/PEGtube daily. (7) Endocarditis Current Visit: Yes Status: Suspected Assessment and Plan: patient being managed for suspected endocarditis. Plan: - c/w ceftriaxone 2gm/IV daily. - ID consulted, recommendations appreciated (8) COPD (chronic obstructive pulmonary disease) Current Visit: No Status: Chronic Assessment and Plan: patient not on acute exacerbation. chest is clear to auscultation b/l. Plan - On bronchodilators Q4RT PRN and symbicort. - incentive spirometry (9) HTN (hypertension) Current Visit: No Status: Chronic Assessment and Plan: BP is well controlled. hypotension on presentation resolved with IV fluids and blood products transfusion. c/w metoprolol 50mg/PEGTube BID. DVT Prophylaxis: Intermittent pneumatic compression for dvt prophylaxis. - Summary of Assessment and Plan Summary of Assessment and Plan: Patient to remain in the hospital due to acute blood lost anemia. scheduled for an EGD today. - Time Spent with Patient Total time spent is greater than 50% in coordination of care (as documented) at patient's floor/unit and/or counseling patient: Greater than 35 minutes (45) Plan of Care Discussed with: patient (his daughter and his nurse.) Internal Medicine: Result - Labs CBC & Chem 7: 06/18/19 12:00 06/18/19 07:30 Labs: Short CBC 06/17/19 06/17/19 06/18/19 Range/Units 17:10 22:20 07:30 WBC 6.4 (4.3-11.1) K/mcL Hgb 9.4 L 9.4 L 8.8 L (12.9-16.9) g/dL Hct 29.4 L 29.1 L 27.4 L (37.5-50.1) % Plt Count 258 (140-400) K/mcL Neutrophils # 4.1 (1.6-8.9) K/mcL 06/18/19 Range/Units 12:00 WBC (4.3-11.1) K/mcL Hgb 9.2 L (12.9-16.9) g/dL Hct 28.8 L (37.5-50.1) % Plt Count (140-400) K/mcL Neutrophils # (1.6-8.9) K/mcL BMP 06/18/19 07:30 Sodium 135 L Potassium 3.3 L Chloride 104 Carbon Dioxide 28 BUN 12 Creatinine 0.56 L Glucose 95 Calcium 7.4 L - ABG Interpretation ABG results: PT/INR, D-dimer PT 14.8 Seconds (9.4-12.1) H 06/17/19 10:56 Consult Discharge Plan - Plan Referrals: Marquez Pina DO [Resident] - 06/22/19 10:00 am (1) Anemia Qualifiers: Anemia type: unspecified type Qualified Code(s): D64.9 - Anemia, unspecified (2) Dysphagia Qualifiers: Dysphagia type: unspecified Qualified Code(s): R13.10 - Dysphagia, unspecified (3) GI bleed Qualifiers: GI bleed type/associated pathology: melena Qualified Code(s): K92.1 - Melena (6) Hypothyroid Qualifiers: Hypothyroidism type: unspecified Qualified Code(s): E03.9 - Hypothyroidism, unspecified (7) Endocarditis Qualifiers: Endocarditis type: unspecified Chronicity: subacute Qualified Code(s): I33.9 - Acute and subacute endocarditis, unspecified (8) COPD (chronic obstructive pulmonary disease) Qualifiers: COPD type: emphysema Emphysema type: unspecified Qualified Code(s): J43.9 - Emphysema, unspecified (9) HTN (hypertension) Qualifiers: Hypertension type: essential hypertension Qualified Code(s): I10 - Essential (primary) hypertension
[2019-06-18] MEDS ORDERED: *HR* EPINEPHrine 1 MG/10 ML SYRINGE INTRATRACH ONE (14:15)
[2019-06-18] MEDS: D5% in 0.9% NACL 1,000 ML IVC SCH (16:19)
[2019-06-18] MEDS: cefTRIAXone 2,000 MG in Water for inj. (sterile) 20 ML IVP SCH (16:25)
[2019-06-18] MEDS: Pantoprazole 40 MG in 0.9 % Sodium Chloride Mini Bag 100 ML IVC SCH ×2 (16:28→21:47)
[2019-06-19] MEDS: Insulin LISPRO 300 UNITS/3 ML VIAL SQ SCH ×4 (00:14→18:24)
[2019-06-19] MEDS: Pantoprazole 40 MG in 0.9 % Sodium Chloride Mini Bag 100 ML IVC SCH ×4 (02:42→17:17)
[2019-06-19] MEDS: Budesonide/Formoterol 160/4.5 1 PUFF INH IH SCH ×2 (07:53→19:45)
[2019-06-19] MEDS: Ringers Solution, Lactated 1,000 ML IVC SCH (08:03)
[2019-06-19] MEDS: cefTRIAXone 2,000 MG in 0.9 % Sodium Chloride Mini Bag 100 ML IVPB SCH (08:07)
[2019-06-19] MEDS: *HR* HYDROcodone/Acet 5/325 mg TABLET GTUBE PRN (08:08)
--- NOTE | 2019-06-19 09:50 | Infectious Disease Progress No ---
ID Progress Note Date of Encounter: 06/19/19 Time of Encounter: 09:49 - Subjective Subjective: Patient seen and examined. No acute events noted overnight. Patient states overall he feels okay. States he is a getting much sleep. Denies fevers, chills, or rigors. Denies chest pain, shortness of breath, or cough. Reports of intermittent nausea and right upper quadrant and epigastric abdominal pain. Denies vomiting or diarrhea. Denies oral thrush or skin rashes. Denies urinary complaints. States his appetite is not very good. Reports one bowel movement yesterday, but none so far today. - Objective CBC & Chem 7: 06/21/19 03:13 06/21/19 03:13 - Exam Vitals: Temp Pulse Resp BP Pulse Ox 97.5 F L 78 16 121/82 96 06/19/19 07:04 06/19/19 07:04 06/19/19 07:53 06/19/19 07:04 06/19/19 07:53 Exam: Head: Atraumatic, normal inspection, normocephalic. Eye: EOMI, PERRLA, no scleral icterus noted. No subconjunctival hemorrhage noted. ENT: Mucous membranes moist. No odontogenic infection noted. Neck: Normal inspection, no meningismus. Respiratory: Clear to auscultation. No rales, respiratory distress, rhonchi, or wheezes noted. Cardiovascular: Regular rate and rhythm, S1 and S2 audible. No murmurs, rubs, or gallops. GI: Soft, obese, normal bowel sounds. Tenderness noted to the RUQ, epigastric region, and PEG tube site. PEG tube noted to the LUQ, currently clamped. Extremities: No joint swelling, pedal edema, or tenderness noted. Back: Normal inspection. No vertebral tenderness noted. Neurological: Alert, oriented 3, no focal deficits. Psychiatric: normal affect, normal mood. Skin: Dry, intact, warm. Normal color. No rashes. No subconjunctival hemorrhage noted. - Assessment and Plan (1) GI bleed Current Visit: Yes Status: Resolved Secondary to duodenal ulcer. Hgb 7 on admission with dark tarry stools. GI consulted. EGD unsuccessful due to inability to intubate the esophagus. Status post colonoscopy that showed melena throughout the colon. Nuc med bleeding scan negative. Secondary EGD attempt successful 06/18/[address] Shea. Oozing duodenal ulcer noted. Further workup and treatment per the primary and GI teams. Qualifiers: GI bleed type/associated pathology: melena Qualified Code(s): K92.1 - Melena SNOMED Code(s): 12610128 (2) Weakness Current Visit: No Status: Acute Likely multifactorial: chronic/prolonged illness, anemia/GIB bleed. PT/OT. SNOMED Code(s): 61242308 (3) Anemia Current Visit: Yes Status: Acute Secondary to GIB. Improved. Transfusion parameters per the primary team. Qualifiers: Anemia type: unspecified type Qualified Code(s): D64.9 - Anemia, unspecified SNOMED Code(s): 326112343 (4) Hypotension Current Visit: Yes Status: Resolved Likely secondary to hypovolemia. Resolved with IVF and blood products. Qualifiers: Hypotension type: unspecified hypotension type Qualified Code(s): I95.9 - Hypotension, unspecified SNOMED Code(s): 26848074 (5) Elevated lactic acid level Current Visit: Yes Status: Resolved SNOMED Code(s): 3262620 (6) Pancreatic mass Current Visit: Yes Status: Acute Concerning for primary neoplasm. EUS planned as an outpatient. Further workup per the GI team. SNOMED Code(s): 094492999 (7) Endocarditis Current Visit: Yes Status: Suspected Diagnosed in [place]. Exact details unclear, but apparently had S. viridans (2/4) and CONS bacteremia (2/4). TTE negative, but DARRELL not completed due to subglottic edema. Planned to treat with IV Rocephin x 6 weeks based on Ni's criteria. Currently on IV Rocephin. Planned to treat through 07/02/19. Qualifiers: Endocarditis type: unspecified Chronicity: subacute Qualified Code(s): I33.9 - Acute and subacute endocarditis, unspecified SNOMED Code(s): 27614663 (8) CAD (coronary artery disease) Current Visit: Yes Status: Chronic Qualifiers: Coronary Disease-Associated Artery/Lesion type: unspecified vessel or lesion type [place] vs. transplanted heart: unspecified whether [place] or transplanted heart Associated angina: angina presence unspecified Qualified Code(s): I25.10 - Atherosclerotic heart disease of [place] coronary artery without angina pectoris SNOMED Code(s): 56733208 (9) Hypothyroid Current Visit: Yes Status: Chronic Qualifiers: Hypothyroidism type: unspecified Qualified Code(s): E03.9 - Hypothyroidism, unspecified SNOMED Code(s): 44430465 (10) History of cardiac arrest Current Visit: Yes Status: Chronic SNOMED Code(s): 312711005 (11) COPD (chronic obstructive pulmonary disease) Current Visit: No Status: Chronic Qualifiers: COPD type: emphysema Emphysema type: unspecified Qualified Code(s): J43.9 - Emphysema, unspecified SNOMED Code(s): 00981647 (12) HTN (hypertension) Current Visit: No Status: Chronic Qualifiers: Hypertension type: essential hypertension Qualified Code(s): I10 - Essential (primary) hypertension SNOMED Code(s): 99765867 (13) Dysphagia Current Visit: Yes Status: Acute Status post g-tube placement 06/07/19. TOWBOAT PILOT consulted. MBS pending completion later today. Qualifiers: Dysphagia type: unspecified Qualified Code(s): R13.10 - Dysphagia, unspecified SNOMED Code(s): 79528497, 737842017 - Recommendations Recommendations: GIB and pancreatic mass workup/treatment per the primary and GI teams. Dysphagia per TOWBOAT PILOT and GI. Continue Rocephin 2 grams IV daily. Duration of treatment depends on the clinical picture, but likely through 07/03/19. Monitor renal function and dose-adjust antibiotics. Will need weekly CBC, BUN/Cr. Will need weekly IV care per protocol. Follow up with ID 07/03/19 at 1500. Consult Discharge Plan - Plan Instructions: Omeprazole (By mouth), Ceftriaxone (Injection), Chronic Dysphagia (DC), Anemia (GEN) Referrals: Renetta Tobar CNP [Advanced Practice Nurse] - 06/27/19 9:00 am (Please follow up as schedule..) Vaishali Stewatr CNP [Advanced Practice Nurse] - 07/03/19 3:00 pm (Please follow up as schedule...) Marquez Pina DO [Resident] - 06/22/19 10:00 am Jaison Morrison DO [Partnered Physician] - 06/29/19 9:00 am (APT MADE ON 06/20/19.) Audelia Frey MD [Partnered Physician] - (web requested 06/21/2019) Prescriptions: Omeprazole [PriLOSEC] 40 mg PO BID #60 cap Transmission Status: Received by [facility] cefTRIAXone [Rocephin] 2,000 mg IJ Q24H #11 vial Prescription Printed - Attending Attestation I have personally performed a face to face evaluation on this patient. I have reviewed and agree with the care plan. History and Exam by me shows: Assessment and plan: GI bleed Recent bacteremia with Streptococcus viridans. TTE negative. DARRELL on done due to technical issues patient had 2 major [place] and one minor [place] so was started on IV antibiotics in [place] Lactic acidosis Pancreatic mass Recommendations GIB and pancreatic mass workup/treatment per the primary and GI teams. Dysphagia per TOWBOAT PILOT and ENT. Continue Rocephin 2 grams IV daily. Duration of treatment depends on the clinical picture, but likely through 07/02/19. Monitor renal function and dose-adjust antibiotics. We will continue to follow peripherally.
[2019-06-19 10:25] LABS: Basophils % 0.1 %; Hemoglobin 9.6 g/dL (12.9-16.9); Immature Granulocytes % 1.3 % (0-4); Lymphocytes # 0.8 K/mcL (0.6-4.6); Lymphocytes % 8.1 %; Mean Corpuscular Volume 93.8 fL (83.0-100.0); Mean Platelet Volume 9.5 fL (9.4-12.4); Monocytes # 0.7 K/mcL (0.0-1.3); Monocytes % 7.7 %; Neutrophils # 7.8 K/mcL (1.6-8.9); Platelet Count 356 K/mcL (140-400); Red Cell Distribution Width 17.3 % (11.5-14.5); Segmented Neutrophils % 82.8 %; White Blood Count 9.4 K/mcL (4.3-11.1)
--- NOTE | 2019-06-19 10:30 | Internal Med Progress Note ---
Hospitalist Progress Note - Encounter Date of Encounter: 06/19/19 Time of Encounter: 10:28 - Subjective Interval History: I have seen and evaluated the patient at bedside. patient reporting feeling better, denies abdominal pain, nausea or vomiting. denies chest pain. - Exam Vitals: Temp Pulse Resp BP Pulse Ox 97.5 F L 78 16 121/82 96 06/19/19 07:04 06/19/19 07:04 06/19/19 07:53 06/19/19 07:04 06/19/19 07:53 Exam: Vitals: Reviewed General: Alert and oriented x4. In no distress. Cardiovascular: RRR, normal S1 & S2, no rubs, murmurs or gallops. Lungs: CTA b/l, no wheezes or crackles. Abdomen: Soft, non-tender, no rigidity or guarding. PEG tube clean, no signs of infection. Extremities: No edema Neurological: No focal neurological abnormalities. CN II-XII intact Rest of the physical exam is non contributory - Assessment and Plan (1) Anemia Current Visit: Yes Status: Acute Assessment and Plan: acute blood lost anemia secondary to GI bleed. Nm scan: negative for bleeding. patient s/p 4 units of PRBCs transfused. H&H stable for the past 48 hours. s/p EGD: One oozing duodenal ulcer with a visible vessel seen. Injected. Plan Patient on a PPI drip for at lest 74hours per GI recommendations Keep NPO sucralfate 1gm/PEGTube QID c/w D5NS @25ml/hr to avoid hypoglycemia will transfuse per protocol c/w anti-emetics GI recommendations appreciated (2) GI bleed Current Visit: Yes Status: Resolved (3) Pancreatic mass Current Visit: Yes Status: Acute Assessment and Plan: High suspicious of malignancy due to radiographic characteristic and lymph nodes involvement. GI recommended outpatient EUS. Oncology consulted, recommendations appreciated. (4) Duodenal ulcer Current Visit: Yes Status: Acute Assessment and Plan: plan of care as per problem #1. (5) Dysphagia Current Visit: Yes Status: Acute Assessment and Plan: possible secondary to esophagial stenosis s/p dilation. Scheduled for MBS tomorrow. (6) CAD (coronary artery disease) Current Visit: Yes Status: Chronic Assessment and Plan: Off antiplatelet due to GI bleed secondary to duodenal ulcer. (7) History of cardiac arrest Current Visit: Yes Status: Chronic (8) Hypothyroid Current Visit: Yes Status: Chronic Assessment and Plan: On levothyroxine 25mcg/PEGtube daily. (9) Endocarditis Current Visit: Yes Status: Suspected Assessment and Plan: Patient being treated for suspected endocarditis based on Ni's criteria on previous admission. continue with ceftriaxone 2gm/IV daily. patient linked with ID for outpatient follow up. (10) COPD (chronic obstructive pulmonary disease) Current Visit: No Status: Chronic Assessment and Plan: Patient not on acute exacerbation. Chest is clear to auscultation bilaterally. On Symbicort. And bronchodilators when necessary. (11) HTN (hypertension) Current Visit: No Status: Chronic Assessment and Plan: Blood pressures well controlled on metoprolol 50 mg per PEG tube twice a day. (12) Esophageal stenosis Current Visit: Yes Status: Acute Assessment and Plan: s/p dilation. - Time Spent with Patient Total time spent is greater than 50% in coordination of care (as documented) at patient's floor/unit and/or counseling patient: Internal Medicine: Result - Labs CBC & Chem 7: 06/19/19 10:09 06/18/19 07:30 Labs: Short CBC 06/18/19 06/19/19 Range/Units 12:00 10:09 WBC 9.4 (4.3-11.1) K/mcL Hgb 9.2 L 9.6 L (12.9-16.9) g/dL Hct 28.8 L 30.0 L (37.5-50.1) % Plt Count 356 (140-400) K/mcL Neutrophils # 7.8 (1.6-8.9) K/mcL - ABG Interpretation ABG results: PT/INR, D-dimer PT 14.8 Seconds (9.4-12.1) H 06/17/19 10:56 Consult Discharge Plan - Plan Referrals: Vaishali Stewart CNP [Advanced Practice Nurse] - 07/03/19 3:00 pm Marquez Pina DO [Resident] - 06/22/19 10:00 am (1) Anemia Qualifiers: Anemia type: unspecified type Qualified Code(s): D64.9 - Anemia, unspecified (2) GI bleed Qualifiers: GI bleed type/associated pathology: melena Qualified Code(s): K92.1 - Melena (5) Dysphagia Qualifiers: Dysphagia type: unspecified Qualified Code(s): R13.10 - Dysphagia, unspecified (6) CAD (coronary artery disease) Qualifiers: Coronary Disease-Associated Artery/Lesion type: unspecified vessel or lesion type [place] vs. transplanted heart: unspecified whether [place] or transplanted heart Associated angina: angina presence unspecified Qualified Code(s): I25.10 - Atherosclerotic heart disease of [place] coronary artery without angina pectoris (8) Hypothyroid Qualifiers: Hypothyroidism type: unspecified Qualified Code(s): E03.9 - Hypothyroidism, unspecified (9) Endocarditis Qualifiers: Endocarditis type: unspecified Chronicity: subacute Qualified Code(s): I33.9 - Acute and subacute endocarditis, unspecified (10) COPD (chronic obstructive pulmonary disease) Qualifiers: COPD type: emphysema Emphysema type: unspecified Qualified Code(s): J43.9 - Emphysema, unspecified (11) HTN (hypertension) Qualifiers: Hypertension type: essential hypertension Qualified Code(s): I10 - Essential (primary) hypertension
[2019-06-19 10:45] LABS: BUN/Creatinine Ratio 20 (6-26); Blood Urea Nitrogen 14 mg/dL (8-23); Carbon Dioxide 28 mEq/L (23-29); Chloride 99 mEq/L (98-107); Glucose 114 mg/dL (70-105); Magnesium 1.9 mg/dL (1.6-2.6); Osmolality,Calculated 279 (280-300); Potassium 3.7 mEq/L (3.5-5.1); Sodium 134 mEq/L (136-145); eGFR For African Americans > 60 (> 60); eGFR For Non-African Americans > 60 (> 60)
--- NOTE | 2019-06-19 12:08 | Oncology Inp Consult Note ---
<Renetta Tobar - Last Filed: 06/19/19 15:39> Date of Encounter: 06/19/19 Time of Encounter: 10:40 Assessment and Plan (1) Pancreatic mass Status: Acute Assessment and plan: New pancreatic mass with peripancreatic lymphadenopathy identified on CT abd/pelvis CA 19-9: 7 CT/CT abd pelvis w iv no oral IMPRESSION: 1. A hypoenhancing mass is present along the pancreatic head which measures 3.5 x 2.7 x 2.3 cm and is most concerning for a primary pancreatic neoplasm. Adjacent enlarged peripancreatic lymph nodes measure up to 3.0 x 2.0 cm and are concerning for metastatic disease. No liver lesions are visualized. 2. Centrilobular micronodules in the right lung base are most likely infectious in etiology. 3. Cholelithiasis without evidence of acute cholecystitis. Plan: Outpatient biopsy per Dr. Frey (2) Anemia Status: Acute Assessment and plan: Hgb 9.6 s/p 4 units pRBC's. Last transfusion 06/16/19. Hgb stable. Continues on PPI. Plan: Monitor daily CBC. Qualifiers: Anemia type: unspecified type Qualified Code(s): D64.9 - Anemia, unspecified - Data of Consult Patient: new to practice Consult date: 06/18/19 Requesting Physician: Anthony Smith MD Primary Care Provider: Shaye Bradford - Consult Narrative Reason for consult: pancreatic mass with possible metastatic disease History of present illness: Mr. Ez Gale, a 63yo male, presented to the emergency department for dark, tarry stools. He was recently hospitalized for four weeks while living near [place], [place] due to sepsis. His daughter reported a cardiac event that required CPR and intubation. 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 He also had a g-tube placed due to aspiration pneumonia and notes that he has two weeks of antibiotics left. He currently has SL PICC in his JESSICA. He notes that he moved to [place], but has decided to move back to the area where his family in the area and can help care for him. Oncology was consulted on 06/18/[address] abdomen and pelvis from ED workup noted a hypoenhancing mass is present along the pancreatic head which measures 3.5 x 2.7 x 2.3 cm and an adjacent enlarged peripancreatic lymph nodes measure up to 3 cm x 2 cm. Results discussed with patient and daughter. He notes 7-8lb weight loss with recent hospitalization, but notes that he was tolerating g-tube feeds. He does note weakness with hospitalization, but does get up and walk with assistance. He denies headaches, vision changes, chest pain, or palpitations. His daughter notes he was having nausea, vomiting, and diarrhea, but this has improved since admission. He had EDG with Dr. Frey and noted to have ulcer. He is NPO, including tube feeds, and is on PPI continuous infusion. Dr. Frey's EGD noted plan to EUS to biopsy pancreatic mass as an outpatient. Social history: Moved from [place], [place] last week to stay near family. Living with sister and mother in [place], [place] 3 daughters live locally. 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 Denies smoking history Denies alcohol use. Stopped drinking alcohol 33 yrs ago Denies illicit drug use Past Med Surg Social Fam HX - Past Medical History Medical history: COPD, coronary artery disease, diabetes, hyperlipidemia, hypertension, myocardial infarction, other (Obstructive sleep apnea with O2 dependence, hypothyroidism) Additional medical history: coded 1 month ago Psychiatric history: no psych history - Past Surgical History Additional surgical history: Heart cath. g tube - Social History Smoking Status: Never smoker Smokeless Tobacco Status: No Alcohol use: none Drug use: none - Family History Father Living Status: Hx Family Cardiac Disorders: Yes (CABG at 22 years old) Hx Family Cancer: Yes (adenocarcinoma) Mother Living Status: Still Living Hx Family Cardiac Disorders: Yes (TN x 3) Hx Family Neurologic Disorders: Yes (alzheimers) Medications and Allergies Albuterol Sulfate [Proventil Inhaler] 1 puff IH Q6H PRN 09/10/18 [History] Atorvastatin Calcium [Lipitor] 20 mg PO DAILY 09/10/18 [History] Cyclobenzaprine HCl 10 mg PO TID PRN 09/10/18 [History] Levothyroxine [Synthroid] 25 mcg PO QAM 09/10/18 [History] Nitroglycerin [Nitrostat] 0.4 mg SL Q5MIN PRN 09/10/18 [History] Pantoprazole Sodium [Protonix] 40 mg PO DAILY 09/10/18 [History] Paroxetine [Paxil] 20 mg PO DAILY 09/10/18 [History] Aspirin [Lo-Dose Aspirin EC] 81 mg PO DAILY 06/15/19 [History] Budesonide/Formoterol 160/4.5 [Symbicort 160/4.5] 1 puff IH BIDR 06/15/19 [History] Metoprolol Tartrate 50 mg PO BID 06/15/19 [History] Oxycodone HCl 5 mg PO Q6H PRN 06/15/19 [History] traZODone [TraZODone] 50 mg PO HS 06/15/19 [History] Allergy/AdvReac Type Severity Reaction Status Date / Time rabbit dander Allergy Difficulty Verified 06/15/19 11:26 Breathing shellfish derived Allergy Swelling Verified 06/15/19 11:26 of Lip/Tongue/Throat Constitutional: Present: fatigue, weight loss Cardiovascular: Absent: chest pain, edema, palpitations Respiratory: Absent: cough Gastrointestinal: Present: abdominal pain, diarrhea, nausea, other Musculoskeletal: Present: muscle weakness Integumentary: Present: dry skin Additional comments: pallor Neurological: Present: weakness Oncology - Exam - Constitutional General appearance: cooperative, no acute distress - Head Head exam: Present: normal inspection, normocephalic - Respiratory Respiratory exam: Present: decreased breath sounds. Absent: respiratory distr ess - Cardiovascular Cardiovascular exam: Present: RRR - GI/Abdominal GI/Abdominal exam: Present: soft. Absent: tenderness - Extremities Exam Extremities exam: Present: normal inspection. Absent: pedal edema - Neurological Exam Neurological exam: Present: alert, oriented X3. Absent: facial droop, speech deficit - Psychiatric Psychiatric exam: Present: normal affect, normal mood - Skin Skin exam: Present: dry, pallor, warm Additional comments: scattered bruising to BUE Oncology Inpatient Results Labs: Laboratory Results - last 24 hr 06/17/19 06/18/19 06/18/19 19:00 00:32 05:49 WBC RBC Hgb Hct MCV MCH MCHC RDW Plt Count MPV Immature Gran % Seg Neutrophils % Lymphocytes % Monocytes % Eosinophils % Basophils % Neutrophils # Lymphocytes # Monocytes # Eosinophils # Basophils # Sodium Potassium Chloride Carbon Dioxide BUN Creatinine Est GFR ( Amer) Est GFR (Non-Af Amer) BUN/Creatinine Ratio Glucose POC Glucose 83 93 81 Calculated Osmolality Calcium Phosphorus Magnesium 06/18/19 06/18/19 06/18/19 11:37 16:38 22:15 WBC RBC Hgb Hct MCV MCH MCHC RDW Plt Count MPV Immature Gran % Seg Neutrophils % Lymphocytes % Monocytes % Eosinophils % Basophils % Neutrophils # Lymphocytes # Monocytes # Eosinophils # Basophils # Sodium Potassium Chloride Carbon Dioxide BUN Creatinine Est GFR ( Amer) Est GFR (Non-Af Amer) BUN/Creatinine Ratio Glucose POC Glucose 107 H 112 H 112 H Calculated Osmolality Calcium Phosphorus Magnesium 06/19/19 06/19/19 06/19/19 00:00 05:41 10:09 WBC 9.4 RBC 3.20 L Hgb 9.6 L Hct 30.0 L MCV 93.8 MCH 30.0 MCHC 32.0 RDW 17.3 H Plt Count 356 MPV 9.5 Immature Gran % 1.3 Seg Neutrophils % 82.8 Lymphocytes % 8.1 Monocytes % 7.7 Eosinophils % 0.0 Basophils % 0.1 Neutrophils # 7.8 Lymphocytes # 0.8 Monocytes # 0.7 Eosinophils # 0.0 Basophils # 0.0 Sodium Potassium Chloride Carbon Dioxide BUN Creatinine Est GFR ( Amer) Est GFR (Non-Af Amer) BUN/Creatinine Ratio Glucose POC Glucose 126 H 126 H Calculated Osmolality Calcium Phosphorus Magnesium 06/19/19 06/19/19 10:09 10:09 WBC RBC Hgb Hct MCV MCH MCHC RDW Plt Count MPV Immature Gran % Seg Neutrophils % Lymphocytes % Monocytes % Eosinophils % Basophils % Neutrophils # Lymphocytes # Monocytes # Eosinophils # Basophils # Sodium 134 L Potassium 3.7 Chloride 99 Carbon Dioxide 28 BUN 14 Creatinine 0.69 L Est GFR ( Amer) > 60 Est GFR (Non-Af Amer) > 60 BUN/Creatinine Ratio 20 Glucose 114 H POC Glucose Calculated Osmolality 279 L Calcium 8.0 L Phosphorus 3.2 Magnesium 1.9 Chest X-Ray 06/15/19 12:08 IMPRESSION: Mild cardiomegaly and stable elevation of the right hemidiaphragm No acute process within the chest D/ / 06/15/2019 12:12:50 Uriel Topete MD / [facility] Interpreting Provider: Uriel Topete MD Abdomen/Pelvis CT 06/15/19 15:30 IMPRESSION: 1. A hypoenhancing mass is present along the pancreatic head which measures 3.5 x 2.7 x 2.3 cm and is most concerning for a primary pancreatic neoplasm. Adjacent enlarged peripancreatic lymph nodes measure up to 3.0 x 2.0 cm and are concerning for metastatic disease. No liver lesions are visualized. 2. Centrilobular micronodules in the right lung base are most likely infectious in etiology. 3. Cholelithiasis without evidence of acute cholecystitis. D/ / 06/15/2019 15:48:27 Raúl Rosales MD / [facility] Interpreting Provider: Raúl Rosales MD GI Bleed Scan Nuclear Medicine 06/17/19 13:15 IMPRESSION: No evidence of active GI bleeding during acquisition. RECOMMENDATIONS: If the patient shows hemodynamic signs of an active bleed in the next 20 hours, additional images can be acquired. D/ / Paresh Day MD / Paresh Day MD Interpreting Provider: Paresh Day MD Consult Discharge Plan - Plan Referrals: Vaishali Stewart CNP [Advanced Practice Nurse] - 07/03/19 3:00 pm Marquez Pina DO [Resident] - 06/22/19 10:00 am Inpatient Charges Provider: Dr. Viv Treviño <Sheela Treviño - Last Filed: 06/19/19 17:04> Date of Encounter: 06/19/19 - Data of Consult Requesting Physician: Anthony Smith MD Primary Care Provider: Shaye Bradford - Consult Narrative History of present illness: Patient with prior hospitalization at [facility], status post G-tube, per history due to aspiration pneumonia, underwent imaging studies the CT abdomen and pelvis that revealed hypoenhancing mass in the pancreatic head as well as well defined peripancreatic lymph nodes. He underwent a EGD, duodenal bleeding, ulceration, status post treatment. Patient denies any melena he is status post packed red blood cells 4 units for anemia. Evaluation of pancreatic head mass with ERCP by gastroenterology planned an outpatient. We discussed possible diagnosis from imaging studies and need for biopsy. Patient had this point wishes its not malignant. Outline of treatment options provided to patient and he would like to pursue outpatient workup. I examined this patient and my medical decision-making was reviewed with the Advanced Practice Nurse, Renetta Tobar, PLANER OPERATOR I agree with the documented findings, disposition and treatment plan as described except to the extent set forth below. Inpatient Charges Provider: Dr. Viv Treviño Consult - Inpatient: [id number]
[2019-06-19] MEDS: traMADol 50 MG TABLET GTUBE PRN (15:02)
[2019-06-19] MEDS: clonazePAM 0.5 MG TABLET GTUBE PRN ×2 (15:02→20:00)
[2019-06-19] MEDS: D5% in 0.9% NACL 1,000 ML IVC SCH (17:17)
[2019-06-20] MEDS: Insulin LISPRO 300 UNITS/3 ML VIAL SQ SCH ×4 (00:39→17:03)
[2019-06-20] MEDS: Pantoprazole 40 MG in 0.9 % Sodium Chloride Mini Bag 100 ML IVC SCH ×4 (02:35→20:44)
[2019-06-20] MEDS: *HR* HYDROcodone/Acet 5/325 mg TABLET GTUBE PRN (02:35)
[2019-06-20] MEDS: Budesonide/Formoterol 160/4.5 1 PUFF INH IH SCH ×2 (07:05→19:46)
[2019-06-20] MEDS: Ringers Solution, Lactated 1,000 ML IVC SCH (07:27)
[2019-06-20 08:02] LABS: Hematocrit 29.2 % (37.5-50.1); Hemoglobin 9.2 g/dL (12.9-16.9); Mean Corpuscular HGB Conc 31.5 g/dL (31.6-35.5); Mean Corpuscular Hemoglobin 29.4 pg (28.0-33.3); Mean Corpuscular Volume 93.3 fL (83.0-100.0); Mean Platelet Volume 8.9 fL (9.4-12.4); Platelet Count 343 K/mcL (140-400); Red Blood Count 3.13 M/mcL (4.19-5.50); Red Cell Distribution Width 17.5 % (11.5-14.5); White Blood Count 7.1 K/mcL (4.3-11.1)
[2019-06-20] MEDS: cefTRIAXone 2,000 MG in 0.9 % Sodium Chloride Mini Bag 100 ML IVPB SCH (08:08)
[2019-06-20] MEDS: traMADol 50 MG TABLET GTUBE PRN ×2 (08:09→20:19)
[2019-06-20] MEDS: clonazePAM 0.5 MG TABLET GTUBE PRN ×2 (08:09→20:19)
--- NOTE | 2019-06-20 10:24 | Infectious Disease Progress No ---
ID Progress Note Date of Encounter: 06/20/19 Time of Encounter: 10:22 - Subjective Subjective: Patient seen and examined. No acute events noted overnight. Patient states overall he feels okay. States he is not getting much sleep. Denies fevers, chills, or rigors. Denies chest pain, shortness of breath, or cough. Reports of intermittent nausea and right upper quadrant and epigastric abdominal pain. Denies vomiting or diarrhea. Denies oral thrush or skin rashes. Denies urinary complaints. States his appetite is okay. Reports one bowel movement the day before yesterday, but none so far today. MBS pending completion later today. - Objective CBC & Chem 7: 06/21/19 03:13 06/21/19 03:13 - Exam Vitals: Temp Pulse Resp BP Pulse Ox 97.9 F 83 18 115/72 93 06/20/19 06:54 06/20/19 06:54 06/20/19 07:06 06/20/19 06:54 06/20/19 07:06 Exam: Head: Atraumatic, normal inspection, normocephalic. Eye: EOMI, PERRLA, no scleral icterus noted. No subconjunctival hemorrhage noted. ENT: Mucous membranes moist. No odontogenic infection noted. Neck: Normal inspection, no meningismus. Respiratory: Clear to auscultation. No rales, respiratory distress, rhonchi, or wheezes noted. Cardiovascular: Regular rate and rhythm, S1 and S2 audible. No murmurs, rubs, or gallops. GI: Soft, obese, normal bowel sounds. Tenderness noted to the RUQ, epigastric region, and PEG tube site. PEG tube noted to the LUQ, currently clamped. Extremities: No joint swelling, pedal edema, or tenderness noted. Back: Normal inspection. No vertebral tenderness noted. Neurological: Alert, oriented 3, no focal deficits. Psychiatric: normal affect, normal mood. Skin: Dry, intact, warm. Normal color. No rashes. No subconjunctival hemorrhage noted. - Assessment and Plan (1) GI bleed Status: Resolved Secondary to duodenal ulcer. Hgb 7 on admission with dark tarry stools. GI consulted. EGD unsuccessful due to inability to intubate the esophagus. Status post colonoscopy that showed melena throughout the colon. Nuc med bleeding scan negative. Secondary EGD attempt successful 06/18/[address] RIVERA. Oozing duodenal ulcer noted. Further workup and treatment per the primary and GI teams. Qualifiers: GI bleed type/associated pathology: melena Qualified Code(s): K92.1 - Melena SNOMED Code(s): 61120545 (2) Weakness Status: Acute Likely multifactorial: chronic/prolonged illness, anemia/GIB bleed. PT/OT. SNOMED Code(s): 17933459 (3) Anemia Status: Acute Secondary to GIB. Improved. Transfusion parameters per the primary team. Qualifiers: Anemia type: unspecified type Qualified Code(s): D64.9 - Anemia, unspecified SNOMED Code(s): 062273446 (4) Hypotension Status: Resolved Likely secondary to hypovolemia. Resolved with IVF and blood products. Qualifiers: Hypotension type: unspecified hypotension type Qualified Code(s): I95.9 - Hypotension, unspecified SNOMED Code(s): 61478264 (5) Elevated lactic acid level Status: Resolved SNOMED Code(s): 7031419 (6) Pancreatic mass Status: Acute Concerning for primary neoplasm. EUS planned as an outpatient. Further workup per the GI team. SNOMED Code(s): 927983953 (7) Endocarditis Status: Suspected Diagnosed in [place]. Exact details unclear, but apparently had S. viridans (2/4) and CONS bacteremia (2/4). TTE negative, but DARRELL not completed due to subglottic edema. Planned to treat with IV Rocephin x 6 weeks based on Ni's criteria. Currently on IV Rocephin. Planned to treat through 07/02/19. Qualifiers: Endocarditis type: unspecified Chronicity: subacute Qualified Code(s): I33.9 - Acute and subacute endocarditis, unspecified SNOMED Code(s): 67785899 (8) CAD (coronary artery disease) Status: Chronic Qualifiers: Coronary Disease-Associated Artery/Lesion type: unspecified vessel or lesion type [place] vs. transplanted heart: unspecified whether [place] or transplanted heart Associated angina: angina presence unspecified Qualified Code(s): I25.10 - Atherosclerotic heart disease of [place] coronary artery without angina pectoris SNOMED Code(s): 33948348 (9) Hypothyroid Status: Chronic Qualifiers: Hypothyroidism type: unspecified Qualified Code(s): E03.9 - Hypothyroidism, unspecified SNOMED Code(s): 52059635 (10) History of cardiac arrest Status: Chronic SNOMED Code(s): 593137712 (11) COPD (chronic obstructive pulmonary disease) Status: Chronic Qualifiers: COPD type: emphysema Emphysema type: unspecified Qualified Code(s): J43.9 - Emphysema, unspecified SNOMED Code(s): 40939281 (12) HTN (hypertension) Status: Chronic Qualifiers: Hypertension type: essential hypertension Qualified Code(s): I10 - Essential (primary) hypertension SNOMED Code(s): 16416269 (13) Dysphagia Status: Acute Status post g-tube placement 06/07/19. SCORE CALLER consulted. MBS pending completion later today. Qualifiers: Dysphagia type: unspecified Qualified Code(s): R13.10 - Dysphagia, uns pecified SNOMED Code(s): 10441215, 084635258 - Recommendations Recommendations: GIB and pancreatic mass workup/treatment per the primary and GI teams. Dysphagia per SCORE CALLER and GI. Continue Rocephin 2 grams IV daily. Duration of treatment depends on the clinical picture, but likely through 07/02/19. Monitor renal function and dose-adjust antibiotics. Will need weekly CBC, BUN/Cr. Will need weekly IV care per protocol. Follow up with ID 07/03/19 at 1500. Consult Discharge Plan - Plan Instructions: Omeprazole (By mouth), Ceftriaxone (Injection), Chronic Dysphagia (DC), Anemia (GEN) Referrals: Renetta Tobar CNP [Advanced Practice Nurse] - 06/27/19 9:00 am (Please follow up as schedule..) Vaishali Stewart CNP [Advanced Practice Nurse] - 07/03/19 3:00 pm (Please follow up as schedule...) Marquez Pina DO [Resident] - 06/22/19 10:00 am Jaison Morrison DO [Partnered Physician] - 06/29/19 9:00 am (APT MADE ON 06/20/19.) Audelia Rivera MD [Partnered Physician] - (web requested 06/21/2019) Prescriptions: Omeprazole [PriLOSEC] 40 mg PO BID #60 cap Transmission Status: Received by [facility] cefTRIAXone [Rocephin] 2,000 mg IJ Q24H #11 vial Prescription Printed - Attending Attestation I have personally performed a face to face evaluation on this patient. I have reviewed and agree with the care plan. History and Exam by me shows: Assessment and plan: GI bleed Recent bacteremia with Streptococcus viridans. TTE negative. DARRELL on done due to technical issues patient had 2 major Harris and one minor Harris so was started on IV antibiotics in [place] Lactic acidosis Pancreatic mass Recommendations GIB and pancreatic mass workup/treatment per the primary and GI teams. Dysphagia per SCORE CALLER and ENT. Continue Rocephin 2 grams IV daily. Duration of treatment depends on the clinical picture, but likely through 07/02/19. Monitor renal function and dose-adjust antibiotics. We will continue to follow peripherally.
[2019-06-20] MEDS ORDERED: E-Z-PAQUE (BARIUM SULF) SUSP 1 BOTTLE PO ONE (11:16)
[2019-06-20] MEDS ORDERED: E-Z-HD (BARIUM SULF) SUSPENSION PO ONE (11:16)
--- NOTE | 2019-06-20 17:13 | Internal Med Progress Note ---
Hospitalist Progress Note - Encounter Date of Encounter: 06/20/19 Time of Encounter: 17:10 - Subjective Interval History: Patient passed barium swallow today and anxious for discharge. Apparently does not have PCP currently that is covered under his insurance benefits so this will need to be sorted out before discharge so that patient can have home health for IV antibiotics. - Exam Vitals: Temp Pulse Resp BP Pulse Ox 97.8 F 86 18 105/68 95 06/20/19 15:45 06/20/19 15:45 06/20/19 15:45 06/20/19 15:45 06/20/19 15:45 Exam: General: Ill-appearing and in no acute distress HEENT: No erythema of posterior pharynx. No exudates. Lymphatics: No mandibular or cervical lymphadenopathy Cardiovascular: RRR. No murmurs. No chest wall tenderness. Lungs: Clear to auscelltation bilaterally. Regular chest rise. Abdomen: PEG tube in place. Non-tender. No rebound or gaurding. Nl bowel sounds. Extremities: No edema. 2+ pulses radial and pedal pulses Skin: No rahses, abrasions, or contusions. Nl cap refill. Psych: Nl attention. A&Ox3 Neuro: poll clerk II-XII intact. 5/5 strength. Sensation to light touch and pinprick intact. - Assessment and Plan (1) Anemia Current Visit: Yes Status: Acute (2) GI bleed Current Visit: Yes Status: Resolved (3) Pancreatic mass Current Visit: Yes Status: Acute (4) Duodenal ulcer Current Visit: Yes Status: Acute (5) Dysphagia Current Visit: Yes Status: Acute (6) CAD (coronary artery disease) Current Visit: Yes Status: Chronic (7) History of cardiac arrest Current Visit: Yes Status: Chronic (8) Hypothyroid Current Visit: Yes Status: Chronic (9) Endocarditis Current Visit: Yes Status: Suspected (10) COPD (chronic obstructive pulmonary disease) Current Visit: No Status: Chronic (11) HTN (hypertension) Current Visit: No Status: Chronic (12) Esophageal stenosis Current Visit: Yes Status: Acute DVT Prophylaxis: SCDs - Summary of Assessment and Plan Summary of Assessment and Plan: Gastrointestinal bleed Duodenal ulcer Acute blood loss anemia Patient with complex recent medical history consisting of recent cardiac arrest and ?IN on aspirin presents with GI bleed and found to have an oozing duodenal ulcer with visible vessel status post injection. -Ulcer likely related to stress-induced from recent ICU stay made worse by concurrent aspirin use -Hemoglobin has been stable since EGD -Unclear if patient truly had IN. Family confirms no stents but other details unknown. Unclear if he will need aspirin going forward PLAN: - PPI drip - can likely switch to orals tomorrow - Sucralfate - Trend hemoglobin - We will review records and determine if patient needs aspirin for discharge - Will need GI follow-up for repeat endoscopy in 1 month Pancreatic mass Discovered on CT imaging on admission. Presumed malignancy. - We will follow up with oncology and GI for EUS biopsy as an outpatient Presumed endocarditis Streptococcus viridans and CONS bacteremia Diagnosed in [place]. Apparently had S. viridans (2/4) and CONS bacteremia (2/4). TTE negative, but DARRELL not completed due to subglottic edema. - ID consulted, appreciate recommendations - Planned to treat with IV Rocephin x 6 weeks through 07/02/19 Dysphagia Developed dysphagia due to prolonged hospital stay in [place] and is status post PEG tube placement. Barium swallow this admission with no evidence of aspiration. - Progress diet per FIRE CHIEF'S AIDE Internal Medicine: Result - Labs CBC & Chem 7: 06/20/19 07:50 06/19/19 10:09 Labs: Short CBC 06/20/19 Range/Units 07:50 WBC 7.1 (4.3-11.1) K/mcL Hgb 9.2 L (12.9-16.9) g/dL Hct 29.2 L (37.5-50.1) % Plt Count 343 (140-400) K/mcL - ABG Interpretation ABG results: PT/INR, D-dimer PT 14.8 Seconds (9.4-12.1) H 06/17/19 10:56 - Impressions Impressions Abdomen/Pelvis CT 06/15/19 15:30 IMPRESSION: 1. A hypoenhancing mass is present along the pancreatic head which measures 3.5 x 2.7 x 2.3 cm and is most concerning for a primary pancreatic neoplasm. Adjacent enlarged peripancreatic lymph nodes measure up to 3.0 x 2.0 cm and are concerning for metastatic disease. No liver lesions are visualized. 2. Centrilobular micronodules in the right lung base are most likely infectious in etiology. 3. Cholelithiasis without evidence of acute cholecystitis. D/ / 06/15/2019 15:48:27 Raúl Rosales MD / [facility] Interpreting Provider: Raúl Rosales MD Videofluoroscopic Swallow 06/20/19 11:50 IMPRESSION: Deep laryngeal penetration with the thin barium consistency without definite aspiration. Please see separate speech pathology report for full discussion of findings and recommendations. D/ / Tom Liang / Tom Liang Interpreting Provider: Tom Liang Consult Discharge Plan - Plan Referrals: Vaishali Stewart CNP [Advanced Practice Nurse] - 07/03/19 3:00 pm Marquez Pina DO [Resident] - 06/22/19 10:00 am Jaison Morrison DO [Partnered Physician] - 06/29/19 9:00 am (APT MADE ON 06/20/19.) Prescriptions: cefTRIAXone [Rocephin] 2,000 mg IJ Q24H #11 vial Prescription Printed (1) Anemia Qualifiers: Anemia type: unspecified type Qualified Code(s): D64.9 - Anemia, unspecified (2) GI bleed Qualifiers: GI bleed type/associated pathology: melena Qualified Code(s): K92.1 - Melena (5) Dysphagia Qualifiers: Dysphagia type: unspecified Qualified Code(s): R13.10 - Dysphagia, unspecified (6) CAD (coronary artery disease) Qualifiers: Coronary Disease-Associated Artery/Lesion type: unspecified vessel or lesion type [place] vs. transplanted heart: unspecified whether [place] or transplanted heart Associated angina: angina presence unspecified Qualified Code(s): I25.10 - Atherosclerotic heart disease of [place] coronary artery without angina pectoris (8) Hypothyroid Qualifiers: Hypothyroidism type: unspecified Qualified Code(s): E03.9 - Hypothyroidism, unspecified (9) Endocarditis Qualifiers: Endocarditis type: unspecified Chronicity: subacute Qualified Code(s): I33.9 - Acute and subacute endocarditis, unspecified (10) COPD (chronic obstructive pulmonary disease) Qualifiers: COPD type: emphysema Emphysema type: unspecified Qualified Code(s): J43.9 - Emphysema, unspecified (11) HTN (hypertension) Qualifiers: Hypertension type: essential hypertension Qualified Code(s): I10 - Essential (primary) hypertension
[2019-06-21] MEDS: Insulin LISPRO 300 UNITS/3 ML VIAL SQ SCH ×2 (00:38→06:35)
[2019-06-21] MEDS: Pantoprazole 40 MG in 0.9 % Sodium Chloride Mini Bag 100 ML IVC SCH ×2 (01:39→06:39)
[2019-06-21 03:27] LABS: Hematocrit 27.6 % (37.5-50.1); Hemoglobin 8.6 g/dL (12.9-16.9); Mean Corpuscular HGB Conc 31.2 g/dL (31.6-35.5); Mean Corpuscular Hemoglobin 29.7 pg (28.0-33.3); Mean Corpuscular Volume 95.2 fL (83.0-100.0); Mean Platelet Volume 9.4 fL (9.4-12.4); Platelet Count 345 K/mcL (140-400); Red Cell Distribution Width 17.3 % (11.5-14.5); White Blood Count 7.4 K/mcL (4.3-11.1)
[2019-06-21 03:47] LABS: BUN/Creatinine Ratio 18 (6-26); Blood Urea Nitrogen 10 mg/dL (8-23); Calcium 7.3 mg/dL (8.6-10.3); Carbon Dioxide 31 mEq/L (23-29); Chloride 104 mEq/L (98-107); Glucose 97 mg/dL (70-105); Osmolality,Calculated 289 (280-300); Potassium 3.4 mEq/L (3.5-5.1); Sodium 140 mEq/L (136-145); eGFR For African Americans > 60 (> 60); eGFR For Non-African Americans > 60 (> 60)
[2019-06-21] MEDS: Ringers Solution, Lactated 1,000 ML IVC SCH (06:35)
[2019-06-21] MEDS: Budesonide/Formoterol 160/4.5 1 PUFF INH IH SCH (07:15)
[2019-06-21] MEDS: cefTRIAXone 2,000 MG in 0.9 % Sodium Chloride Mini Bag 100 ML IVPB SCH (08:53)
[2019-06-21] MEDS: *HR* HYDROcodone/Acet 5/325 mg TABLET GTUBE PRN (11:04)
--- NOTE | 2019-06-21 12:25 | Discharge Summary ---
Orders not resulted at time of discharge: Pending orders 06/19/19 08:05 H. Pylori Antigen, Fecal Routine Date of Encounter: 06/21/19 Time of Encounter: 12:16 - Discharge Diagnosis (1) GI bleed Priority: Primary Status: Resolved Qualifiers: GI bleed type/associated pathology: melena Qualified Code(s): K92.1 - Melena (2) Anemia Priority: Secondary Status: Acute Qualifiers: Anemia type: unspecified type Qualified Code(s): D64.9 - Anemia, unspecified (3) Pancreatic mass Priority: Secondary Status: Acute (4) Duodenal ulcer Priority: Secondary Status: Acute (5) Dysphagia Priority: Secondary Status: Acute Qualifiers: Dysphagia type: unspecified Qualified Code(s): R13.10 - Dysphagia, unspecified (6) CAD (coronary artery disease) Priority: Secondary Status: Chronic Qualifiers: Coronary Disease-Associated Artery/Lesion type: unspecified vessel or lesion type [place] vs. transplanted heart: unspecified whether [place] or transplanted heart Associated angina: angina presence unspecified Qualified Code(s): I25.10 - Atherosclerotic heart disease of [place] coronary artery without angina pectoris (7) History of cardiac arrest Priority: Secondary Status: Chronic (8) Hypothyroid Priority: Secondary Status: Chronic Qualifiers: Hypothyroidism type: unspecified Qualified Code(s): E03.9 - Hypothyroidism, unspecified (9) Endocarditis Priority: Secondary Status: Suspected Qualifiers: Endocarditis type: unspecified Chronicity: subacute Qualified Code(s): I33.9 - Acute and subacute endocarditis, unspecified (10) COPD (chronic obstructive pulmonary disease) Priority: Secondary Status: Chronic Qualifiers: COPD type: emphysema Emphysema type: unspecified Qualified Code(s): J43.9 - Emphysema, unspecified (11) HTN (hypertension) Priority: Secondary Status: Chronic Qualifiers: Hypertension type: essential hypertension Qualified Code(s): I10 - Essential (primary) hypertension (12) Esophageal stenosis Priority: Secondary Status: Acute Hospital course: Mr. Gale is a 63 year old male with complex recent medical history consisting of recent hospital stay at [facility] for cardiac arrest, ?AK on aspirin, S. viridans and cog-neg staph bacteremia, and dysphagia s/p PEG tube presented with acute GI bleed and found to have an oozing duodenal ulcer with visible vessel status post injection and prolonged IV PPI therapy. Ulcer likely related to stress-induced from recent ICU stay at [facility] made worse by concurrent aspirin use. Exact details of AK unknown, but family says that no stents were placed. Presume this was a type II NSTEMI event in setting of cardiac arrest. Will hold ASA while ulcer heals given no strong indication for this (no stents) and benefit may outweigh risk. Also moved PPI to bid. He will follow-up with GI. Other issues: -Pancreatic mass evident on CT imaging on admission. Presumed malignant. Will follow-up with GI for EUS biopsy and oncology. -S. viridans and cog-neg staph bacteremia diagnosed in [place]. Presumed endocarditis. Evaluated by ID during hospital stay. On Ceftriaxone. Will follow- up with ID and continue ceftriaxone until 07/02/19 -Dysphagia improving and patient will follow-up for outpatient [employer] to advance diet. On Ice chips currently with full PEG tube feeds. Discharge discussed with: patient - Time Spent with Patient Total time spent providing and/or coordinating discharge services: 90 minutes Time spent: Greater than 30 minutes - Discharge Medications Prescriptions: New cefTRIAXone [Rocephin] 2,000 mg IJ Q24H #11 vial Omeprazole [PriLOSEC] 40 mg PO BID #60 cap Continued Albuterol Sulfate [Proventil Inhaler] 1 puff IH Q6H PRN PRN Reason: Wheezing Nitroglycerin [Nitrostat] 0.4 mg SL Q5MIN PRN PRN Reason: Chest Pain Levothyroxine [Synthroid] 25 mcg PO QAM Paroxetine [Paxil] 20 mg PO DAILY Atorvastatin Calcium [Lipitor] 20 mg PO DAILY Cyclobenzaprine HCl 10 mg PO TID PRN PRN Reason: Muscle Spasm Budesonide/Formoterol 160/4.5 [Symbicort 160/4.5] 1 puff IH BIDR Metoprolol Tartrate 50 mg PO BID Oxycodone HCl 5 mg PO Q6H PRN PRN Reason: Pain traZODone [TraZODone] 50 mg PO HS Discontinued Pantoprazole Sodium [Protonix] 40 mg PO DAILY Aspirin [Lo-Dose Aspirin EC] 81 mg PO DAILY Home Medications: Albuterol Sulfate [Proventil Inhaler] 1 puff IH Q6H PRN 09/10/18 [History] Atorvastatin Calcium [Lipitor] 20 mg PO DAILY 09/10/18 [History] Cyclobenzaprine HCl 10 mg PO TID PRN 09/10/18 [History] Levothyroxine [Synthroid] 25 mcg PO QAM 09/10/18 [History] Nitroglycerin [Nitrostat] 0.4 mg SL Q5MIN PRN 09/10/18 [History] Paroxetine [Paxil] 20 mg PO DAILY 09/10/18 [History] Budesonide/Formoterol 160/4.5 [Symbicort 160/4.5] 1 puff IH BIDR 06/15/19 [History] Metoprolol Tartrate 50 mg PO BID 06/15/19 [History] Oxycodone HCl 5 mg PO Q6H PRN 06/15/19 [History] traZODone [TraZODone] 50 mg PO HS 06/15/19 [History] cefTRIAXone [Rocephin] 2,000 mg IJ Q24H #11 vial 06/20/19 [Rx] Omeprazole [PriLOSEC] 40 mg PO BID #60 cap 06/21/19 [Rx] Allergies/Adverse Reactions: Allergy/AdvReac Type Severity Reaction Status Date / Time rabbit dander Allergy Difficulty Verified 06/15/19 11:26 Breathing shellfish derived Allergy Swelling Verified 06/15/19 11:26 of Lip/Tongue/Throat Date of admission: 06/15/19 14:21 Primary care physician: Shaye Bradford Consults: 06/15/19 12:07 Consult to Gastroenterology [CONS] Stat Consulting Provider: Sanjeev Rehman Reason for Consult: Active GIB with Hg <8 Time Notified: 12:08 Call Completed: Yes 06/15/19 15:10 Consult to Infectious Diseases [CONS] Routine Consulting Provider: Infectious Disease [place] Reason for Consult: being treated for suspected endocarditis. Call Completed: Yes 06/15/19 19:42 Consult to Nutrition [CONS] Routine Comment: Home Jevity boluses and 1 liter FW daily Consulting Provider: NUTRITION Reason for Dietary Consult: Tube Feed Start & Manage Consult to [facility] [CONS] Routine Reason for SW Consult: Recent travel to [place] to live and gtube placement with IV ATB orders and PICC line 06/17/19 17:34 Consult to Speech Therapy [CONS] Routine Comment: Evaluate, develop and implement POC Reason for Consult: Previous failed swallow eval in [place] Call Completed: No 06/18/19 02:44 Consult to Respiratory Therapy [CONS] Routine Reason for Consult: patient's oxygen saturation is decreasing to as low as 68% while sleeping. Call Completed: Yes 06/18/19 17:57 Consult to Oncology [CONS] Routine Consulting Provider: Oncology [facility] Reason for Consult: pancreatic mass possible metastatic ca. Call Completed: No - Constitutional Vitals: Temp Pulse Resp BP Pulse Ox 97.8 F 82 18 127/80 96 06/21/19 11:05 06/21/19 11:05 06/21/19 11:05 06/21/19 11:05 06/21/19 11:05 General appearance: Present: disheveled, A&O X 3, no acute distress, obese, answers questions appropriately Exam: General: Ill-appearing and in no acute distress HEENT: No erythema of posterior pharynx. No exudates. Lymphatics: No mandibular or cervical lymphadenopathy Cardiovascular: RRR. No murmurs. No chest wall tenderness. Lungs: Clear to auscelltation bilaterally. Regular chest rise. Abdomen: PEG tube in place. Non-tender. No rebound or gaurding. Nl bowel sounds. Extremities: No edema. 2+ pulses radial and pedal pulses Skin: No rahses, abrasions, or contusions. Nl cap refill. Psych: Nl attention. A&Ox3 Neuro: clam bed worker II-XII intact. 5/5 strength. Sensation to light touch and pinprick intact. - Patient Status Disposition: Home Health Service Functional capacity at discharge: uses cane/walker Overall status at discharge: patient is progressing back to baseline - Discharge Instructions Follow Up With: Renetta Tobar CNP [Advanced Practice Nurse] - 06/27/19 9:00 am (Please follow up as schedule..) Vaishali Stewart CNP [Advanced Practice Nurse] - 07/03/19 3:00 pm (Please follow up as schedule...) Marquez Pina DO [Resident] - 06/22/19 10:00 am Jaison Morrison DO [Partnered Physician] - 06/29/19 9:00 am (APT MADE ON 06/20/19.) - Diet and Activity Activity: as per physical therapy Diet: other
--- NOTE | 2019-06-21 12:43 | Physician Discharge Referral ---
Home Health/Hosp Referral Info Transfer to: Home Health Attending Provider: Basil Lugo MD Provider in Charge Post Discharge: PCP - Diagnosis (1) GI bleed Priority: Primary Status: Resolved (2) Anemia Priority: Secondary Status: Acute (3) Pancreatic mass Priority: Secondary Status: Acute (4) Duodenal ulcer Priority: Secondary Status: Acute (5) Dysphagia Priority: Secondary Status: Acute (6) CAD (coronary artery disease) Priority: Secondary Status: Chronic (7) History of cardiac arrest Priority: Secondary Status: Chronic (8) Hypothyroid Priority: Secondary Status: Chronic (9) Endocarditis Priority: Secondary Status: Suspected (10) COPD (chronic obstructive pulmonary disease) Priority: Secondary Status: Chronic (11) HTN (hypertension) Priority: Secondary Status: Chronic (12) Esophageal stenosis Priority: Secondary Status: Acute - Respiratory Orders Smoking Cessation: Smoking cessation has been advised. For more information, call the [place] Tobacco Quit Line at 9-193-AFKV-NOW. - Diet/Nutrition Diet/Nutrition: List: ICE chips - Activity Activity Orders: Ambulate, Walker - Services Needed Following services are medically necessary services: Nursing, Physical Therapy - Transfer Medications Prescriptions: Omeprazole [PriLOSEC] 40 mg PO BID #60 cap Transmission Status: Sent to [facility] cefTRIAXone [Rocephin] 2,000 mg IJ Q24H #11 vial Prescription Printed Home Medications: Albuterol Sulfate [Proventil Inhaler] 1 puff IH Q6H PRN 09/10/18 [History] Atorvastatin Calcium [Lipitor] 20 mg PO DAILY 09/10/18 [History] Cyclobenzaprine HCl 10 mg PO TID PRN 09/10/18 [History] Levothyroxine [Synthroid] 25 mcg PO QAM 09/10/18 [History] Nitroglycerin [Nitrostat] 0.4 mg SL Q5MIN PRN 09/10/18 [History] Paroxetine [Paxil] 20 mg PO DAILY 09/10/18 [History] Budesonide/Formoterol 160/4.5 [Symbicort 160/4.5] 1 puff IH BIDR 06/15/19 [History] Metoprolol Tartrate 50 mg PO BID 06/15/19 [History] Oxycodone HCl 5 mg PO Q6H PRN 06/15/19 [History] traZODone [TraZODone] 50 mg PO HS 06/15/19 [History] cefTRIAXone [Rocephin] 2,000 mg IJ Q24H #11 vial 06/20/19 [Rx] Omeprazole [PriLOSEC] 40 mg PO BID #60 cap 06/21/19 [Rx] Allergies/Adverse Reactions: Allergy/AdvReac Type Severity Reaction Status Date / Time rabbit dander Allergy Difficulty Verified 06/15/19 11:26 Breathing shellfish derived Allergy Swelling Verified 06/15/19 11:26 of Lip/Tongue/Throat Certification: Further, I certify that my clinical findings support that this patient is homebound (i.e. absences from home require considerable and taxing effort and are for medical reasons or judaism services or infrequently or short duration when for other reasons) because: Very weak after prolonged ICU stay Homebound Reason: Patient requires assistance of a person or device to safely leave home Attestation: My signature below is to certify that this patient is under my care and that I, or nurse practitioner, or a physician's assistant professor of philosophy working with me, has a [id number] encounter with this patient. Basil Lugo MD
[2019-06-21] MEDS ORDERED: FLU Vac QV 19-20 (6Month+)/PF 0.5 ML SYRINGE IM ONE (14:03)
[2019-06-21 14:23] VITALS: BP 132/81
--- NOTE | 2019-06-21 16:36 | Oncology Inp Progress Note ---
Date of Encounter: 06/21/19 Time of Encounter: 08:00 (1) Anemia Current Visit: Yes Status: Acute Assessment and plan: Hgb dropped. Hx DU bleed, s/p RX EGD. Need to monitor closely. Pt is actually feeling better and wants to get discharged home. Pancreatic head mass, adenopathy likely malignant. needs ERCP outpatient. F/U in clinic with above results or sooner for lab check Qualifiers: Anemia type: unspecified type Qualified Code(s): D64.9 - Anemia, unspecified Oncology: Subj Interval history: He is off oxygen, feels well. Denies abd pain or dark stools - Constitutional General appearance: average body habitus, no acute distress - Head Head exam: Present: atraumatic, normal inspection - Eye Eye exam: Present: sclera anicteric - ENT ENT exam: Present: mucous membranes moist - Neck Neck exam: Present: full ROM - Respiratory Respiratory exam: Present: CTAB - Cardiovascular Cardiovascular exam: Present: +S1, +S2 - GI/Abdominal Additional comments: soft, g tube, non tender - Extremities Exam Additional comments: trace edema, non tender - Neurological Exam Neurological exam: Present: alert, CN II-XII intact, oriented X3 Oncology: Obj Data - Labs CBC & Chem 7: 06/21/19 03:13 06/21/19 03:13 Consult Discharge Plan - Plan Instructions: Omeprazole (By mouth), Ceftriaxone (Injection), Chronic Dysphagia (DC), Anemia (GEN) Referrals: Renetta Tobar CNP [Advanced Practice Nurse] - 06/27/19 9:00 am (Please follow up as schedule..) Vaishali Stewart CNP [Advanced Practice Nurse] - 07/03/19 3:00 pm (Please follow up as schedule...) Marquez Pina DO [Resident] - 06/22/19 10:00 am Jaison Morrison DO [Partnered Physician] - 06/29/19 9:00 am (APT MADE ON 06/20/19.) Audelia Frey MD [Partnered Physician] - (web requested 06/21/2019) Prescriptions: Omeprazole [PriLOSEC] 40 mg PO BID #60 cap Transmission Status: Received by [facility] cefTRIAXone [Rocephin] 2,000 mg IJ Q24H #11 vial Prescription Printed Inpatient Charges Provider: Dr. Viv Treviño Follow up - Inpatient: [id number]
[2019-06-21] MEDS ORDERED: Pantoprazole 40 MG VIAL IVP SCH (18:00)
== END 2019-06-21 16:27 | disposition home health service (06) | DRG 377 ==
LOC: EMEROOARM 11:10 → SUATTDRO 14:21 → 2NNU 14:21 → 2ANU 06-18 16:24
PROVIDERS: ADMIT Internal Medicine; ATTEND Internal Medicine
PROC: ENDOEDS (2019-06-18 14:00)

== ENCOUNTER 2019-09-27 10:05 | Inpatient (IN) ==
[2019-09-27] MEDS ORDERED: 0.9 % Sodium Chloride 500 ML IVC ONE (10:28)
[2019-09-27 10:56] LABS: Basophils % 0.4 %; Eosinophils # 0.2 K/mcL (0.0-0.6); Eosinophils % 1.8 %; Hematocrit 44.7 % (37.5-50.1); Hemoglobin 14.4 g/dL (12.9-16.9); Immature Granulocytes % 0.6 % (0-4); Lymphocytes # 0.7 K/mcL (0.6-4.6); Lymphocytes % 6.7 %; Mean Corpuscular HGB Conc 32.2 g/dL (31.6-35.5); Mean Corpuscular Hemoglobin 26.5 pg (28.0-33.3); Mean Corpuscular Volume 82.3 fL (83.0-100.0); Mean Platelet Volume 9.5 fL (9.4-12.4); Monocytes % 9.7 %; Neutrophils # 8.6 K/mcL (1.6-8.9); Platelet Count 211 K/mcL (140-400); Red Blood Count 5.43 M/mcL (4.19-5.50); Red Cell Distribution Width 20.4 % (11.5-14.5); Segmented Neutrophils % 80.8 %; White Blood Count 10.7 K/mcL (4.3-11.1)
[2019-09-27] MEDS ORDERED: Piperacillin/Tazobactam 3.375 GM in 0.9 % Sodium Chloride Mini Bag 100 ML IVPB ONE (11:06)
[2019-09-27 11:15] LABS: BUN/Creatinine Ratio 17 (6-26); Blood Urea Nitrogen 11 mg/dL (8-23); Calcium 8.9 mg/dL (8.6-10.3); Carbon Dioxide 33 mEq/L (23-29); Chloride 97 mEq/L (98-107); Glucose 106 mg/dL (70-105); Osmolality,Calculated 286 (280-300); Potassium 4.1 mEq/L (3.5-5.1); Sodium 138 mEq/L (136-145); Troponin I < 0.03 ng/mL (< 0.04); eGFR For African Americans > 60 (> 60); eGFR For Non-African Americans > 60 (> 60)
[2019-09-27] MEDS ORDERED: Naloxone 0.4 MG/ML INJ IVP PRN (14:18)
[2019-09-27] MEDS ORDERED: Ipratropium/Albuterol Neb 3 ML IH PRN (14:23)
[2019-09-27] MEDS: *HR* OxyCODONE/APAP 5/325 TABLET GTUBE PRN (15:36)
[2019-09-27] MEDS ORDERED: Piperacillin/Tazobactam 3.375 GM in 0.9 % Sodium Chloride Mini Bag 100 ML IVPB SCH (16:00)
[2019-09-27] MEDS: Piperacillin/Tazobactam 3.375 GM in 0.9 % Sodium Chloride Mini Bag 100 ML IVPB SCH (17:43)
[2019-09-28] MEDS ORDERED: Ondansetron 4 MG/2 ML VIAL IVP PRN (01:00)
[2019-09-28 02:11] LABS: Hematocrit 43.4 % (37.5-50.1); Hemoglobin 13.7 g/dL (12.9-16.9); Mean Corpuscular HGB Conc 31.6 g/dL (31.6-35.5); Mean Corpuscular Hemoglobin 26.9 pg (28.0-33.3); Mean Corpuscular Volume 85.1 fL (83.0-100.0); Mean Platelet Volume 9.9 fL (9.4-12.4); Platelet Count 176 K/mcL (140-400); Red Cell Distribution Width 20.1 % (11.5-14.5); White Blood Count 7.2 K/mcL (4.3-11.1)
[2019-09-28 02:34] LABS: BUN/Creatinine Ratio 15 (6-26); Blood Urea Nitrogen 9 mg/dL (8-23); Calcium 8.5 mg/dL (8.6-10.3); Carbon Dioxide 29 mEq/L (23-29); Chloride 102 mEq/L (98-107); Glucose 186 mg/dL (70-105); Osmolality,Calculated 286 (280-300); Potassium 3.7 mEq/L (3.5-5.1); Sodium 136 mEq/L (136-145); eGFR For African Americans > 60 (> 60); eGFR For Non-African Americans > 60 (> 60)
[2019-09-28] MEDS: Piperacillin/Tazobactam 3.375 GM in 0.9 % Sodium Chloride Mini Bag 100 ML IVPB SCH ×3 (03:30→20:48)
[2019-09-28] MEDS ORDERED: *HR* Promethazine 25 MG/ML VIAL IVP ONE (03:43)
[2019-09-28] MEDS ORDERED: Ketorolac 15 MG/ML VIAL IVP ONE (03:43)
[2019-09-28] MEDS ORDERED: *HR* LORazepam 1 MG TABLET GTUBE PRN (07:45)
[2019-09-28] MEDS ORDERED: Albuterol 2.5 MG/3 ML NEBULIZER IH PRN (07:45)
[2019-09-28] MEDS ORDERED: Ipratropium/Albuterol Neb 3 ML IH PRN (07:45)
[2019-09-28] MEDS ORDERED: Nitroglycerin 0.4 MG TAB.SUBL SL PRN (07:45)
[2019-09-28] MEDS: *HR* OxyCODONE/APAP 5/325 TABLET GTUBE PRN (08:58)
[2019-09-28] MEDS: Levothyroxine 25 MCG TABLET PO SCH (08:59)
[2019-09-28] MEDS ORDERED: Aminoglycoside Consult 1 EACH MC ONE (10:17)
[2019-09-28] MEDS: Budesonide/Formoterol 160/4.5 1 PUFF INH IH SCH ×2 (12:34→21:16)
[2019-09-28] MEDS: predniSONE 20 MG TABLET GTUBE SCH (14:41)
[2019-09-28] MEDS: Pantoprazole 40 MG VIAL IVP SCH (14:41)
[2019-09-28] MEDS: *HR* Heparin 5,000 UNIT/ML VIAL SQ SCH ×2 (14:41→20:49)
[2019-09-28 16:57] LABS: Adenovirus Not Detected (Not Detect); Coronavirus 229E Not Detected (Not Detect); Coronavirus HKU1 Not Detected (Not Detect); Coronavirus NL63 Not Detected (Not Detect); Coronavirus OC43 Not Detected (Not Detect); Human Metapneumovirus Not Detected (Not Detect); Human Rhinovirus/Enterovirus DETECTED (Not Detect)
[2019-09-28 17:06] LABS: Bordetella Pertussis Not Detected (Not Detect); Chlamydophila pneumoniae Not Detected (Not Detect); Influenza B Not Detected (Not Detect); Mycoplasma pneumoniae Not Detected (Not Detect); Parainfluenza Virus 1 Not Detected (Not Detect); Parainfluenza Virus 2 Not Detected (Not Detect); Parainfluenza Virus 3 Not Detected (Not Detect); Parainfluenza Virus 4 Not Detected (Not Detect); Respiratory Syncytial Virus Not Detected (Not Detect)
[2019-09-28] MEDS ORDERED: *HR* FentaNYL PATCH 25 MCG PATCH TD SCH (18:00)
[2019-09-29] MEDS: *HR* OxyCODONE/APAP 5/325 TABLET GTUBE PRN (00:32)
[2019-09-29] MEDS: Piperacillin/Tazobactam 3.375 GM in 0.9 % Sodium Chloride Mini Bag 100 ML IVPB SCH (03:13)
[2019-09-29 03:39] LABS: Basophils % 0.3 %; Lymphocytes # 0.6 K/mcL (0.6-4.6); Lymphocytes % 8.4 %; Mean Corpuscular HGB Conc 31.7 g/dL (31.6-35.5); Mean Corpuscular Hemoglobin 26.9 pg (28.0-33.3); Mean Corpuscular Volume 84.7 fL (83.0-100.0); Mean Platelet Volume 10.1 fL (9.4-12.4); Monocytes # 0.7 K/mcL (0.0-1.3); Monocytes % 10.1 %; Neutrophils # 5.8 K/mcL (1.6-8.9); Platelet Count 226 K/mcL (140-400); Red Blood Count 4.84 M/mcL (4.19-5.50); Red Cell Distribution Width 19.7 % (11.5-14.5); Segmented Neutrophils % 80.2 %; White Blood Count 7.2 K/mcL (4.3-11.1)
[2019-09-29 04:28] LABS: BUN/Creatinine Ratio 15 (6-26); Blood Urea Nitrogen 11 mg/dL (8-23); Calcium 8.7 mg/dL (8.6-10.3); Carbon Dioxide 33 mEq/L (23-29); Chloride 101 mEq/L (98-107); Glucose 143 mg/dL (70-105); Osmolality,Calculated 294 (280-300); Potassium 4.7 mEq/L (3.5-5.1); Sodium 141 mEq/L (136-145); eGFR For African Americans > 60 (> 60); eGFR For Non-African Americans > 60 (> 60)
[2019-09-29] MEDS: *HR* Heparin 5,000 UNIT/ML VIAL SQ SCH (06:09)
[2019-09-29] MEDS: Levothyroxine 25 MCG TABLET PO SCH (06:09)
[2019-09-29 08:10] VITALS: BP 155/103
[2019-09-29] MEDS: Budesonide/Formoterol 160/4.5 1 PUFF INH IH SCH (08:26)
[2019-09-29] MEDS: Pantoprazole 40 MG VIAL IVP SCH (08:59)
[2019-09-29] MEDS: predniSONE 20 MG TABLET GTUBE SCH (08:59)
[2019-09-29] MEDS ORDERED: Oseltamivir 6 MG/ML UDC GTUBE SCH (09:00)
[2019-10-04 12:44] LABS: Influenza A Subtype 2009 H1 DETECTED (Not Detect)
== END 2019-09-29 10:18 | disposition home or self-care (01) | DRG 193 ==
LOC: EMEROOARM 10:05 → 2NENU 10:05 → SUATTDRO 11:39 → 2NENU 12:29
PROVIDERS: ADMIT Family Medicine; ATTEND Family Medicine